=== PATIENT | male | born 1930 | race Two or more races ===

== ENCOUNTER 2016-12-18 12:47 | Inpatient (IN) | payer OTHER ==
[~2016-12-18] VITALS: Ht 157.5 cm; Wt 68.5 kg
[2016-12-18] VITALS (19 sets, daily range): BP systolic 111–145; BP diastolic 65–85
--- NOTE | 2016-12-18 12:47 | NUR ---
BBRA FROM HOME FOR SYNCOPAL EPISODE 20 MINS COIL TESTER. NO TRAUMA NOTED. NEURO INTACT. PT LETHARGIC AND WEAK ,BUT RESPONSIVE AND FOLLOWS COMMANDS. MOZAMBICAN SPEAKER. NAD NOTED. PT PLACED IN GOWN AND MONITOR. CONTINUE TO MONITOR. DR ANDRADE AT BEDSIDE FOR EVAL.
[2016-12-18] MEDS ORDERED: IV NS 0.9% 500 ML IV ONE (13:00)
[2016-12-18] MEDS ORDERED: IV NS 0.9% 500 ML BAG IV ONE (13:00)
[2016-12-18] MEDS ORDERED: IV SET PRIMARY PUMP SET 1 EA INFUS.SET MC ONE ×4 (13:00→16:33)
[2016-12-18 13:08] LABS: BASOPHILS % (AUTO) 0.1 % (0.0-2.0); EOSINOPHILS % (AUTO) 0.2 % (0.0-6.0); HEMATOCRIT 26 % (39-51); HEMOGLOBIN 8.8 g/dL (13.5-17.5); LYMPHOCYTES # (AUTO) 2.5 /CMM (0.8-4.8); LYMPHOCYTES % (AUTO) 15.4 % (20.0-44.0); MEAN CORPUSCULAR HEMOGLOBIN 32 PG (26.0-33.0); MEAN CORPUSCULAR HGB CONC 33 g/dl (31.0-36.0); MEAN CORPUSCULAR VOLUME 95 fL (80-96); MONOCYTES # (AUTO) 0.9 /CMM (0.1-1.30); MONOCYTES % (AUTO) 5.7 % (2.0-12.0); NEUTROPHILS # (AUTO) 12.7 /CMM (1.8-8.9); NEUTROPHILS % (AUTO) 78.6 % (43.0-81.0); PLATELET COUNT (AUTO) 371 /CMM (150-450); RDW COEFFICIENT OF VARIATION 12.9 (11.5-15.0); RED BLOOD CELL COUNT(AUTO) 2.78 MIL/uL (4.5-6.0); WHITE BLOOD COUNT (AUTO) 16.1 K/uL (4.3-11.0)
[2016-12-18 13:20] LABS: CALCIUM, SERUM 7.8 mg/dL (8.5-10.1); CARBON DIOXIDE 23 mmol/L (21-32); CHLORIDE 96 mmol/L (98-107); CREATININE 1.5 mg/dL (0.6-1.3); GLUCOSE 156 mg/dL (74-106); POTASSIUM 3.8 mmol/L (3.5-5.1); SODIUM SERUM 129 mmol/L (136-145); UREA NITROGEN, BLOOD 31 mg/dL (7-18)
[2016-12-18 13:26] LABS: ALANINE AMINOTRANSFERASE 19 U/L (12-78); ALBUMIN 2.5 g/dL (3.4-5.0); ALCOHOL, BLOOD < 3 mg/dL (0-0); ALKALINE PHOSPHATASE 67 U/L (46-116); ASPARTATE AMINOTRANSFERASE 22 U/L (15-37); BILIRUBIN,DIRECT 0.1 mg/dL (0.0-0.2); BILIRUBIN,TOTAL 0.4 mg/dL (0.2-1.0); TOTAL PROTEIN, SERUM 5.3 g/dL (6.4-8.2)
[2016-12-18 13:27] LABS: TROPONIN I < 0.017 ng/mL (0.00-0.056)
[2016-12-18 13:29] LABS: INR 1.01 (0.87-1.13); PROTHROMBIN TIME 10.5 SECS (9.5-12.7)
[2016-12-18 13:32] LABS: PARTIAL THROMBOPLASTIN TIME < 20 SEC (23-34)
[2016-12-18 13:34] LABS: SERUM AMMONIA 18 umol/L (11-32)
--- NOTE | 2016-12-18 13:35 | NUR ---
PT NOTED TO HAVE BLOODY STOOL. NOTED DARK, NON DRAINING. DR ANDRADE AWARE.
--- NOTE | 2016-12-18 13:42 | NUR ---
CALLED , HE IS IN SURGERY AND THEY WILL PAGE HIM TO CALL US BACK.
[2016-12-18 13:43] LABS: LACTIC ACID 3.3 mmol/L (0.4-2.0)
--- NOTE | 2016-12-18 13:43 | NUR ---
TENZIN PAGED, DR.SAM Church RN PRIMARY CARE
--- NOTE | 2016-12-18 13:54 | NUR ---
CALLED NURSING SUP. FOR ICU BED
[2016-12-18] MEDS ORDERED: PANTOPRAZOLE 40 MG VIAL ONE (13:56)
[2016-12-18] MEDS ORDERED: PANTOPRAZOLE 40 MG VIAL IV ONE (14:00)
--- NOTE | 2016-12-18 14:04 | NUR ---
NURSING SUP CALLED BACK WITH ICU BED. PT GOING TO ICU 263.
--- NOTE | 2016-12-18 14:22 | NUR ---
report given to abdulaziz leyva for sera
[2016-12-18] MEDS ORDERED: PANTOPRAZOLE 80 MG in IV NS 0.9% 500 ML IV ONE (14:30)
[2016-12-18] MEDS ORDERED: PANTOPRAZOLE 80 MG in IV NS 0.9% 100 ML IV ONE (14:30)
[2016-12-18] MEDS ORDERED: HYDR-548 PO (14:36)
[2016-12-18] MEDS ORDERED: ALLO100T PO (14:36)
[2016-12-18] MEDS ORDERED: ENAL20TA PO (14:36)
[2016-12-18] MEDS ORDERED: IV NS 0.9% 250 ML IV ONE (15:17)
[2016-12-18] MEDS ORDERED: BLOOD IV SET 1 EA INFUS.SET MC ONE ×2 (15:18→20:30)
[2016-12-18] MEDS ORDERED: ONDANSETRON HCL/PF 4 MG/2 ML VIAL IVP PRN (15:30)
[2016-12-18] MEDS ORDERED: MORPHINE SULFATE INJ 2 MG/ML DISP.SYRIN IV PRN (15:30)
--- NOTE | 2016-12-18 15:40 | NUR ---
BLOOD TRANSFUSION STARTED, PT'S DAUGHTER SIGNED CONSENT. WITNESSED WITH ALEXIS DE ANDA.
--- NOTE | 2016-12-18 16:00 | NUR ---
MATERIAL HAULER; ADMIT RECEIVED PT FROM ER VIA GURNEY.PT IS AWAKE AND ORIENTED X3. PT DENIES ANY PAIN AT THIS TIME. PT ADMITTED FOR SYNCOPE EPISODE WITH GIB. PT RECEIVING FIRST PRBC. ORDER FOR 2 UNITS OF PRBC TRANSFUSION. NO ACUTE DISTRESS NOTED WILL CONTINUE TO MONITOR CLOSELY.
[2016-12-18] MEDS: IV NS 0.9% 1,000 ML IV PRN (16:38)
--- NOTE | 2016-12-18 17:38 | NUR ---
VIBRATORY PILE DRIVER;BLOOD TRANSFUSION FIRST PRBC FINISHED. NO S/S OF BLOOD REACTION. PRBC STARTED IN ER.
--- NOTE | 2016-12-18 22:33 | NUR ---
HEALTH SCIENCES DEAN - REC'D REPORT FROM LEODAN DE ANDA, REC'D PT. AT END OF 2ND TX OF PRBC'S. STARTED FFP TX AT 20:35. FAMILY AT BS. PT.IS A CHINESE SPEAKING, INDEPENDENT MALE. PT.JUST HAD A BM OF 50CC MAROON MELENA/DEFINITELY BLOOD. NPO. PT. HAS O2/2L/NC ON. O2 SATS 100%. LUNG JAIN ARE CLEAR TO AUSC. VSS/SR. AFEBRILE. ALL PULSES PALPABLE X 4 EXT. NO EDEMA. CONT.POC.
[2016-12-18 23:42] LABS: BASOPHILS % (AUTO) 0.2 % (0.0-2.0); HEMATOCRIT 30 % (39-51); LYMPHOCYTES # (AUTO) 1.3 /CMM (0.8-4.8); LYMPHOCYTES % (AUTO) 8.4 % (20.0-44.0); MEAN CORPUSCULAR HEMOGLOBIN 31 PG (26.0-33.0); MEAN CORPUSCULAR HGB CONC 34 g/dl (31.0-36.0); MEAN CORPUSCULAR VOLUME 93 fL (80-96); MONOCYTES % (AUTO) 6.7 % (2.0-12.0); NEUTROPHILS # (AUTO) 12.7 /CMM (1.8-8.9); NEUTROPHILS % (AUTO) 84.7 % (43.0-81.0); PLATELET COUNT (AUTO) 313 /CMM (150-450); RDW COEFFICIENT OF VARIATION 13.8 (11.5-15.0)
[2016-12-19] VITALS (46 sets, daily range): BP systolic 136–184; BP diastolic 33–113
[2016-12-19] MEDS ORDERED: PANTOPRAZOLE 40 MG VIAL ONE (00:10)
[2016-12-19] MEDS ORDERED: IV NS 0.9% 500 ML IV ONE (00:10)
[2016-12-19] MEDS ORDERED: IV SET PRIMARY PUMP SET 1 EA INFUS.SET MC ONE (00:11)
[2016-12-19] MEDS: PANTOPRAZOLE 80 MG in IV NS 0.9% 500 ML IV PRN ×3 (00:22→22:06)
--- NOTE | 2016-12-19 00:33 | NUR ---
MORTICIAN HELPER - PT.HAD TO BOUTS OF MELENA/BLOODY URINE/STOOL MIXED IN BSC. FFP TX'D IN. A CBC WAS DRAWN & RESULTED. DR. ANTONY IN UNIT. WAS MADE AWARE OF PT'S CURRENT STATUS. ORDERS REC'D. PT.WAS STARTED ON PROTONIX GTT. ANOTHER CBC/DIFF WILL BE DRAWN AT 2 AM. PT'S FAMILY WAS AT BS & WENT HOME FOR THE NIGHT. CONT. POC.
[2016-12-19 02:25] LABS: HEMOGLOBIN 10.2 g/dL (13.5-17.5)
[2016-12-19 05:14] LABS: BASOPHILS % (AUTO) 0.1 % (0.0-2.0); HEMATOCRIT 29 % (39-51); HEMOGLOBIN 9.7 g/dL (13.5-17.5); LYMPHOCYTES # (AUTO) 1.4 /CMM (0.8-4.8); LYMPHOCYTES % (AUTO) 10.5 % (20.0-44.0); MEAN CORPUSCULAR HEMOGLOBIN 32 PG (26.0-33.0); MEAN CORPUSCULAR HGB CONC 34 g/dl (31.0-36.0); MEAN CORPUSCULAR VOLUME 94 fL (80-96); MONOCYTES # (AUTO) 0.8 /CMM (0.1-1.30); MONOCYTES % (AUTO) 6.1 % (2.0-12.0); NEUTROPHILS # (AUTO) 11.1 /CMM (1.8-8.9); NEUTROPHILS % (AUTO) 83.3 % (43.0-81.0); PLATELET COUNT (AUTO) 298 /CMM (150-450); RDW COEFFICIENT OF VARIATION 14.3 (11.5-15.0); WHITE BLOOD COUNT (AUTO) 13.3 K/uL (4.3-11.0)
[2016-12-19 05:19] LABS: CALCIUM, SERUM 7.8 mg/dL (8.5-10.1); CREATININE 1.4 mg/dL (0.6-1.3); MAGNESIUM 1.3 mg/dL (1.8-2.4); PHOSPHORUS 2.9 mg/dL (2.5-4.9); POTASSIUM 4.5 mmol/L (3.5-5.1)
[2016-12-19] MEDS: IV NS 0.9% 1,000 ML IV PRN ×2 (05:34→22:06)
[2016-12-19 05:38] LABS: THYROID STIMULATING HORMONE 0.975 uIU/mL (0.358-3.74)
--- NOTE | 2016-12-19 07:01 | NUR ---
PLUG STITCHER - PT.HAD A TOTAL OF 7 MELENA STOOLS/W/URINE IN BSC. LAST (8TH) TRIP TO BS, WAS NO BLOOD/ONLY YELLOW URINE. CBC AT 2 AM WAS 10.2. AM LABS DRAWN-AWAITING RESULTS. NO CHANGES FROM LAST ASSESSMENT. CONT. POC. PROTONIX GTT CONT. AT 8MG/HR. 0.9%NS GTT. CONT. AT 75CC/HR. REPORT TO BE ENDORSED TO YAMILETH DE ANDA.
--- NOTE | 2016-12-19 08:00 | NUR ---
ICU/RN INITIAL NOTES,AM RECEIVED REPORT FROM NIGHT NURSE FOR CONTINUATION OF CARE. PT ALERT, AWAKE, FOLLOWS COMMANDS. TOGOLESE SPEAKING ONLY. FAMILY AT BEDSIDE FOR TRANSLATION. PT ON CONTINUOUS PROTONIX DRIP, IV FLUIDS INFUSING ORDERED FOR HYDRATION. PT ON 2LITERS O2 VIA NASAL CANULA NO ACUTE DISTRESS NOTED. PT WAS HAVING GI BLEED. GI CONSULT PENDING. POSSIBLE COLONOSCOPY. PT ABLE TO GO TO BEDSIDE COMMODE WITH ASSIST, URINAL AT BEDSIDE. ALL NEEDS MET, SAFETY MEASURES TAKEN, BED IN LOW POSITION, SIDE RAILS UP, CALL LIGHT WITHIN REACH. WILL CONTINUE CARE
[2016-12-19] MEDS ORDERED: PANTOPRAZOLE 40 MG VIAL IV SCH (09:00)
--- NOTE | 2016-12-19 09:30 | NUR ---
ICU/RN: PT SEEN AND ASSESSED BY . SCHEDULED FOR COLONOSCOPY. WILL START ADMINISTERING GOLYTELY PRESCRIBED. AWAITING FOR FAMILY FOR CONSENT.
[2016-12-19] MEDS ORDERED: PEG 3350/NA SULF,BICARB,CL/KCL 4,000 ML BOTTLE PO ONE (10:00)
[2016-12-19 12:07] LABS: FREE PSA 0.6 ng/mL (0.00-45); PROSTATE SPECIFIC ANTIGEN SCR 1.37 ng/mL (0.00-4.00); THYROID STIMULATING HORMONE 0.979 uIU/mL (0.358-3.74); URIC ACID 6.3 mg/dL (2.6-7.2)
[2016-12-19] MEDS: Magnesium 1GM/D5W 100ML PREMIX 100 ML IV SCH ×4 (12:21→16:36)
--- NOTE | 2016-12-19 16:00 | NUR ---
ICU/RN: CALLED TO NOTIFY THAT MARITA COMPLETED. TLO ORDERS RECEIVED FOR MAX 3 TAP WATER ENEMAS OVERNIGHT TILL CLEAR. COLONOSCOPY SCHEDULED FOR AM. CONSENT OBTAINED AND IN CHART.
[2016-12-19 18:36] LABS: APPEARANCE,URINE CLEAR (CLEAR); BILIRUBIN,URINE NEGATIVE (NEGATIVE); BLOOD, URINE TRACE-INTA Ery/uL (NEGATIVE); COLOR,URINE YELLOW (YELLOW); KETONES,URINE NEGATIVE (NEGATIVE); LEUKOCYTE ESTERASE ,URINE NEGATIVE (NEGATIVE); NITRITE, URINE NEGATIVE (NEGATIVE); PROTEIN,URINE TRACE mg/dl (NEGATIVE); UGLUCOSE NEGATIVE (NEGATIVE); UROBILINOGEN,URINE 0.2 EU/dL (0.2)
[2016-12-19 18:58] LABS: ADD URINE CULTURE NO; BACTERIA,URINE None seen /HPF (None Seen); RBC,URINE 2-3/HPF /HPF (0-2); SQUAMOUS EPITHELIAL CELL,UR Rare /HPF (None Seen); WBC,URINE 0-2 /HPF (0-3)
[2016-12-19 18:59] LABS: MUCUS,URINE Few /LPF (None Seen)
--- NOTE | 2016-12-19 19:26 | NUR ---
ICU/RN ENDING NOTES,AM REPORT ENDORSED TO NIGHT NURSE FOR CONTINUATION OF CARE. ALL NEEDS MET. SAFETY MEASURE TAKEN, BED IN LOW POSITION, SIDE RAILS UP. PT WILL HAVE COLONOSCOPY IN AM. NPO POST MIDNIGHT. CONTINUOUS IV PROTONIX AND IV FLUIDS ORDERED. PT CLEANED AND LINENS CHANGED. PT ABLE TO MOVE SELF IN BED. DVT PUMPS ON
--- NOTE | 2016-12-19 20:00 | NUR ---
ANALYSIS INTERNSHIP NOTES RECEIVED PT IN BED, A/O X3. SAMI SPEAKING ONLY. FAMILY AT BEDSIDE. TELE READS SR AT 86 BPM. ON O2 VIA NC AT 2 LPM, JAZMINE WELL. NO S/S OF ACUTE DISTRESS. PT ABLE TO USE URINAL AND BEDSIDE COMODE WITH ASSIST. RIGHT WRIST 20G AND LEFT AC 20G IVs, RUNNING PROTONIX AND NORMAL SALINE AT 75 ML/HR. CALL LIGHT WITHIN EASY REACH, SIDE RAILS X2, HOB ELEVATED, BED LOW AND LOCKED.
[2016-12-19 23:33] LABS: BASOPHILS % (AUTO) 0.1 % (0.0-2.0); EOSINOPHILS % (AUTO) 0.4 % (0.0-6.0); HEMATOCRIT 27 % (39-51); HEMOGLOBIN 8.9 g/dL (13.5-17.5); LYMPHOCYTES # (AUTO) 1.3 /CMM (0.8-4.8); LYMPHOCYTES % (AUTO) 11.2 % (20.0-44.0); MEAN CORPUSCULAR HEMOGLOBIN 31 PG (26.0-33.0); MEAN CORPUSCULAR HGB CONC 34 g/dl (31.0-36.0); MEAN CORPUSCULAR VOLUME 93 fL (80-96); MONOCYTES # (AUTO) 0.6 /CMM (0.1-1.30); MONOCYTES % (AUTO) 5.1 % (2.0-12.0); NEUTROPHILS # (AUTO) 9.9 /CMM (1.8-8.9); NEUTROPHILS % (AUTO) 83.2 % (43.0-81.0); PLATELET COUNT (AUTO) 300 /CMM (150-450); RDW COEFFICIENT OF VARIATION 14.4 (11.5-15.0); RED BLOOD CELL COUNT(AUTO) 2.86 MIL/uL (4.5-6.0); WHITE BLOOD COUNT (AUTO) 11.8 K/uL (4.3-11.0)
[2016-12-20] VITALS (22 sets, daily range): BP systolic 120–174; BP diastolic 37–91
--- NOTE | 2016-12-20 04:30 | NUR ---
COURT COLLECTIONS OFFICER NOTES PT RECEIVED TAP WATER ENEMA IN PREPARATION FOR COLONOSCOPY. BOWEL MOVEMENT IS SEMI CLEAR AT THIS TIME.
[2016-12-20 05:01] LABS: CALCIUM, SERUM 8.3 mg/dL (8.5-10.1); CREATININE 1.3 mg/dL (0.6-1.3); MAGNESIUM 2.3 mg/dL (1.8-2.4); POTASSIUM 3.9 mmol/L (3.5-5.1)
--- NOTE | 2016-12-20 05:20 | NUR ---
CLIENT ACCOUNT MANAGER NOTES PT RECEIVED SECOND TAP WATER ENEMA. BM IS CLEAR BUT CONTINUES TO HAVE A RED BROWN COLOR. WILL ENDORSE TO AM NURSE TO PERFORM ONE MORE ENEMA PRIOR TO PROCEDURE.
[2016-12-20 06:54] LABS: BASOPHILS % (AUTO) 0.2 % (0.0-2.0); EOSINOPHILS # (AUTO) 0.1 /CMM (0.0-0.7); EOSINOPHILS % (AUTO) 0.9 % (0.0-6.0); HEMATOCRIT 30 % (39-51); HEMOGLOBIN 10.1 g/dL (13.5-17.5); LYMPHOCYTES # (AUTO) 2.1 /CMM (0.8-4.8); LYMPHOCYTES % (AUTO) 16.5 % (20.0-44.0); MEAN CORPUSCULAR HEMOGLOBIN 32 PG (26.0-33.0); MEAN CORPUSCULAR HGB CONC 34 g/dl (31.0-36.0); MEAN CORPUSCULAR VOLUME 94 fL (80-96); MONOCYTES # (AUTO) 0.5 /CMM (0.1-1.30); MONOCYTES % (AUTO) 4.4 % (2.0-12.0); NEUTROPHILS # (AUTO) 9.8 /CMM (1.8-8.9); PLATELET COUNT (AUTO) 328 /CMM (150-450); RDW COEFFICIENT OF VARIATION 13.9 (11.5-15.0); WHITE BLOOD COUNT (AUTO) 12.5 K/uL (4.3-11.0)
--- NOTE | 2016-12-20 07:38 | NUR ---
INITIAL DRIVER SERVICE TECHNICIAN NOTE RCVD PT AWAKE AND ALERT SHOWING NO S/O DISTRESS. SR ON TELE. TOLERATING O2 VIA NC. VOIDING TO URINAL. ABLE TO TRANSFER WITH ASSISTANCE TO BSC. RIGHT WRIST #20 AND LEFT AC #20 C/D/I/PATENT. NO S/O INFILTRATION OR PHLEBITIS IVF INFUSING. WILL CONTINUE TO MONITOR PT FOR SAFETY AND COMFORT. CALL LIGHT WITHIN REACH. BED IN LOW AND LOCKED POSITION. PT PREPPED FOR COLONOSCOPY STOOL CLEAR POST 2 ENEMA'S. CONSENT'S SIGN AND IN CHART.
[2016-12-20] MEDS: PANTOPRAZOLE 80 MG in IV NS 0.9% 500 ML IV PRN (07:42)
[2016-12-20 08:08] LABS: VIT D, 25-HYDROXY 20.2 ng/mL (30.0-100.0)
--- NOTE | 2016-12-20 08:54 | NUR ---
SHIFT SUPERINTENDENT NOTE OR TEAM HERE TO PICK PT UP FOR COLONOSCOPY. VITAL SIGNS STABLE. PT TRANSPORTED VIA BED TO OR.
--- NOTE | 2016-12-20 10:01 | NUR ---
CHIEF OPERATING ENGINEER NOTE RCVD PT BACK FROM OR, REPORT TAKEN AT BEDSIDE. ORDERS IN CHART ACKNOWLEDGED AND ENTERED IN THE SYSTEM. WILL CONTINUE TO MONITOR PT.
--- NOTE | 2016-12-20 10:48 | NUR ---
WOUND CARE CONSULT: PATIENT SEEN AND SKIN ASSESSMENT DONE. PATIENT ALERT, INDEPENDENT WITH BED MOBILITY, CONTINENT, STEPHANE 14. PATIENT SEEN AND SKIN ASSESSMENT DONE. PATIENT ALERT, ORIENTED, CONTINENT, INDEPENDENT WITH BED MOBILITY, STEPHANE 16. NO OPEN OR PRESSURE WOUND NOTED. RECOMMEND SKIN CARE, ASSIST PATIENT WITH GREGORIO CARE, MOISTURE PROTECTION WITH Z GUARD PRN ORDERED. MD IN AGREEMENT WITH PLAN OF CARE.
[2016-12-20] MEDS ORDERED: Z GUARD REMEDY 2 OZ OINT TP PRN (11:00)
[2016-12-20] MEDS: IV NS 0.9% 1,000 ML IV PRN (11:09)
[2016-12-20 12:14] LABS: CARCINOEMBRYONIC AG (CEA) 2.2 ng/mL (0.0-4.7)
--- NOTE | 2016-12-20 12:36 | NUR ---
SALES STOCK ASSOCIATE NOTE PT TRANSFERRED TO ROOM 313-1 VITAL SIGNS STABLE.PT ALERT AND AWAKE SHOWING NO S/O DISTRESS. PT'S FAMILY AT BEDSIDE. PT TRANSFERRED VIA WHEELCHAIR BY RN. REPORT CALLED IN AND TAKEN BY ADILSON MILLER.
--- NOTE | 2016-12-20 12:50 | NUR ---
RN MS NOTES RECEIVED PATIENT FROM ICU VIA WHEELCHAIR ACCOMPANIED BY RACHELLE RN, ALERT AND ORIENTED, SAUDI ARABIAN SPEAKING ONLY, FAMILY AT BEDSIDE FOR SUPPORT, PATIENT DENIES PAIN OR DISCOMFORT AT THIS TIME, EATING LUNCH AND TOLERATING WELL, BREATHING EVEN AND UNLABORED, NO SOB, ABDOMEN SOFT AND NON-DISTENDED, SAFETY MEASURES IN PLACED, CALL LIGHT WITHIN REACH, WILL CONTINUE TO MONITOR.
--- NOTE | 2016-12-20 16:50 | NUR ---
ADILSON MS NOTES CLARIFIED WITH DR. FIELDS RE: ORDER FOR PROTONIX, PER MD, DISCONTINUE PROTONIX DRIP, ORDER CARRIED OUT.
[2016-12-20] MEDS ORDERED: IV SET PRIMARY PUMP SET 1 EA INFUS.SET MC ONE (17:10)
--- NOTE | 2016-12-20 18:33 | NUR ---
RN MS NOTES PATIENT IN BED, ALERT AND ORIENTED, SOUTH SUDANESE SPEAKING, NO S/SX OF ANY DISTRESS, GRANDDAUGHTER AT BEDSIDE FOR ASSISTANCE, PATIENT USES A URINAL AND BEDSIDE COMMODE, RECEIVED ASSISTANCE WITH ADLS, PIV 20G ON RIGHT WRIST INFILTRATED, REMOVED AND RE-INSERTED 22G ON RIGHT WRIST, PATENT AND NS INFUSING AT 75ML/HR, BP ELEVATED 158/81 PULSE 85, MD AWARE, SAFETY MEASURES IN PLACED, CALL LIGHT WITHIN REACH, WILL ENDORSE TO MINI BAR ATTENDANT.
--- NOTE | 2016-12-20 19:30 | NUR ---
MS/RN RECEIVE PATIENT AWAKE, ALERT, COMFORTABLE, NO SIGNS OF DISTRESS NOTED. CALL LIGHT IN REACH. NO NEEDS AT THIS TIME.
--- NOTE | 2016-12-21 | NUR ---
MS/RN PATIENT IS SLEEPING, AROUSABLE, APPEAR COMFORTABLE, NO SIGNS OF DISTRESS NOTED, CALL LIGHT IN REACH. WILL CONTINUE TO MONITOR.
--- NOTE | 2016-12-21 06:15 | NUR ---
MS/RN PATIENT IS AWAKE, COMFORTABLE, ALL NEEDS ATTENDED AT THIS TIME. WILL CONTINUE TO MONITOR.
[2016-12-21 06:59] LABS: BASOPHILS % (AUTO) 0.4 % (0.0-2.0); CALCIUM, SERUM 8.1 mg/dL (8.5-10.1); CREATININE 1.3 mg/dL (0.6-1.3); EOSINOPHILS # (AUTO) 0.1 /CMM (0.0-0.7); EOSINOPHILS % (AUTO) 1.3 % (0.0-6.0); HEMATOCRIT 29 % (39-51); HEMOGLOBIN 9.7 g/dL (13.5-17.5); LYMPHOCYTES % (AUTO) 17.9 % (20.0-44.0); MEAN CORPUSCULAR HEMOGLOBIN 32 PG (26.0-33.0); MEAN CORPUSCULAR HGB CONC 34 g/dl (31.0-36.0); MEAN CORPUSCULAR VOLUME 93 fL (80-96); MONOCYTES # (AUTO) 0.5 /CMM (0.1-1.30); MONOCYTES % (AUTO) 4.6 % (2.0-12.0); NEUTROPHILS # (AUTO) 8.4 /CMM (1.8-8.9); NEUTROPHILS % (AUTO) 75.8 % (43.0-81.0); PLATELET COUNT (AUTO) 318 /CMM (150-450); POTASSIUM 3.9 mmol/L (3.5-5.1); RDW COEFFICIENT OF VARIATION 14.2 (11.5-15.0); RED BLOOD CELL COUNT(AUTO) 3.06 MIL/uL (4.5-6.0); WHITE BLOOD COUNT (AUTO) 11.1 K/uL (4.3-11.0)
[2016-12-21] MEDS: IV NS 0.9% 1,000 ML IV PRN (07:15)
[2016-12-21] MEDS ORDERED: PANTOPRAZOLE 40 MG TABLET.DR PO SCH (07:30)
[2016-12-21 08:00] VITALS: BP_SYST 155; BP_SYST 177; BP_DIAS 59; BP_DIAS 85
--- NOTE | 2016-12-21 08:00 | NUR ---
MS RN NOTE PT. AWAKE, ALERT AND ORIENTED X3. DENIED PAIN AND SOB. NO BM IN THIS MORNING. NS@75ML/HR IVF. SIDE RAILS UP. CALL LIGHT WITHIN REACH. MONITOR CLOSELY.
[2016-12-21 10:50] LABS: LYMPHOCYTES % (MANUAL) 19 % (16-48); MONOCYTES % (MANUAL) 9 % (0-11.0); NEUTROPHILS % (MANUAL) 72 (42-76); PLATELET ESTIMATE ADEQUATE
[2016-12-21] MEDS ORDERED: PANT40TA2 PO (12:13)
[2016-12-21 16:00] VITALS: BP 168/84
--- NOTE | 2016-12-21 18:00 | NUR ---
PT. AWAKE, ALERT AND ORIENTED X3. DENIED PAIN AND SOB. NO BM DURING THE DAYTIME. AMBULATED IN HALLWAY WITH ASSIST. GIVEN DISCHARGE INSTRUCTION TO THE PT'S DAUGHTER. UNDERSTOOD WELL. REMOVED HL. DISCHARGED FROM [facility] WITH FAMILY.
== END 2016-12-21 18:14 | disposition home or self-care (01) | DRG 246 ==
LOC: ER 12:49 → ICU 14:25 → MED 12-20 12:41
PROC: 30233N1 Transfusion of Nonautologous Red Blood Cells into Peripheral Vein, Percutaneous Approach (ICD-10-PCS; principal; 2016-12-18)
PROC: 30233K1 Transfusion of Nonautologous Frozen Plasma into Peripheral Vein, Percutaneous Approach (ICD-10-PCS; principal; 2016-12-18)
PROC: 0DBE8ZX Excision of Large Intestine, Via Natural or Artificial Opening Endoscopic, Diagnostic (ICD-10-PCS; 2016-12-20)
DX: K55.9 Vascular disorder of intestine, unspecified (principal); N17.0 Acute kidney failure with tubular necrosis; E87.2 Acidosis; D62 Acute posthemorrhagic anemia; E87.1 Hypo-osmolality and hyponatremia; E86.9 Volume depletion, unspecified; I11.9 Hypertensive heart disease without heart failure; M54.9 Dorsalgia, unspecified; K92.2 Gastrointestinal hemorrhage, unspecified
CPT/HCPCS: 36415; 70450-TC; 71010-TC; 80048-TC; 80061-TC; 80076-TC; 81000-TC; 82140-TC; 82306; 82378; 82728-TC; 82746; 83540-TC; 83605-TC; 83615-TC; 83735-TC; 84100-TC; 84153-TC; 84154-TC; 84443-TC; 84484-TC; 84550-TC; 85025-TC; 85027-TC; 85045-TC; 85730-TC; 86850-TC; 86921-TC; 87040-TC; 87081-TC; 88305-TC; 93307-TC; 97001-TC; A4217; A4606; C9113; G0480; J2704; J3475; J7030; J7040; J7050; P9016-BL; P9017-BL; Z7610

== ENCOUNTER 2017-01-21 09:50 | Emergency (ER) | payer OTHER ==
[~2017-01-21] VITALS: Ht 160 cm; Wt 77.1 kg
[~2017-01-21 09:50] MED LIST: ALLO100T PO; ENAL20TA PO; HYDR-548 PO; PANT40TA2 PO
--- NOTE | 2017-01-21 10:10 | NUR ---
PT BB DAUGHTER: BACK PAIN X 3 DAYS; R SIDE FACE SWELLING X 2 DAYS. VSS. SEEN BY MD FOR EVAL. SAFETY AND COMFORT MEASURES PROVIDED. WILL MONITOR.
--- NOTE | 2017-01-21 10:20 | NUR ---
IV ACCESS STARTED. BLOOD DRAWN FOR LABS. PT MEDICATED ORDERED.
[2017-01-21] MEDS ORDERED: ACETAMINOPHEN ES 500 MG TABLET PO ONE (10:30)
[2017-01-21] MEDS ORDERED: ACETAMINOPHEN ES 500 MG TABLET ONE (10:42)
[2017-01-21 10:47] LABS: BASOPHILS # (AUTO) 0.1 /CMM (0.0-0.2); BASOPHILS % (AUTO) 0.4 % (0.0-2.0); EOSINOPHILS # (AUTO) 0.1 /CMM (0.0-0.7); EOSINOPHILS % (AUTO) 0.5 % (0.0-6.0); HEMATOCRIT 35 % (39-51); LYMPHOCYTES # (AUTO) 1.8 /CMM (0.8-4.8); LYMPHOCYTES % (AUTO) 14.2 % (20.0-44.0); MEAN CORPUSCULAR HEMOGLOBIN 32 PG (26.0-33.0); MEAN CORPUSCULAR HGB CONC 34 g/dl (31.0-36.0); MEAN CORPUSCULAR VOLUME 92 fL (80-96); MONOCYTES # (AUTO) 0.9 /CMM (0.1-1.30); MONOCYTES % (AUTO) 7.2 % (2.0-12.0); NEUTROPHILS # (AUTO) 9.8 /CMM (1.8-8.9); NEUTROPHILS % (AUTO) 77.7 % (43.0-81.0); PLATELET COUNT (AUTO) 257 /CMM (150-450); RDW COEFFICIENT OF VARIATION 13.5 (11.5-15.0); RED BLOOD CELL COUNT(AUTO) 3.79 MIL/uL (4.5-6.0); WHITE BLOOD COUNT (AUTO) 12.7 K/uL (4.3-11.0)
[2017-01-21 10:57] LABS: CALCIUM, SERUM 8.5 mg/dL (8.5-10.1); CREATININE 1.6 mg/dL (0.6-1.3); POTASSIUM 4.8 mmol/L (3.5-5.1)
[2017-01-21 11:02] LABS: BILIRUBIN,DIRECT 0.2 mg/dL (0.0-0.2); TOTAL PROTEIN, SERUM 6.6 g/dL (6.4-8.2)
[2017-01-21 11:07] LABS: INR 0.91 (0.87-1.13); PROTHROMBIN TIME 9.5 SECS (9.5-12.7)
--- NOTE | 2017-01-21 11:34 | NUR ---
IV removed. Catheter intact and site benign. Pressure and 4x4 applied to site. No bleeding noted.Patient discharged to home in stable condition. Written and verbal after care instructions given. Patient verbalizes understanding of instruction.
[2017-01-21 11:35] VITALS: BP 132/61
== END 2017-01-21 11:41 | disposition home or self-care (01) ==
LOC: ER 09:51
DX: L03.211 Cellulitis of face (principal); I10 Essential (primary) hypertension
CPT/HCPCS: 36415; 71010; 72110; 74176; 80048; 80076; 83690; 85025; 85730; 99285; A4606; Z7610

== ENCOUNTER 2017-01-24 00:47 | Inpatient (IN) | payer OTHER ==
[~2017-01-24] VITALS: Ht 154.9 cm; Wt 74.4 kg
--- NOTE | 2017-01-24 01:18 | NUR ---
Dr. Bundy at bedside for eval.
--- NOTE | 2017-01-24 01:30 | NUR ---
IVHL started, labs drawn & sent. Urinal provided. Instruct pt to provide urine sample fabian.
[2017-01-24 01:37] LABS: BASOPHILS % (AUTO) 0.4 % (0.0-2.0); HEMATOCRIT 32 % (39-51); HEMOGLOBIN 10.7 g/dL (13.5-17.5); LYMPHOCYTES # (AUTO) 0.8 /CMM (0.8-4.8); LYMPHOCYTES % (AUTO) 8.4 % (20.0-44.0); MEAN CORPUSCULAR HEMOGLOBIN 31 PG (26.0-33.0); MEAN CORPUSCULAR HGB CONC 34 g/dl (31.0-36.0); MEAN CORPUSCULAR VOLUME 92 fL (80-96); MONOCYTES # (AUTO) 0.3 /CMM (0.1-1.30); MONOCYTES % (AUTO) 2.9 % (2.0-12.0); NEUTROPHILS # (AUTO) 8.9 /CMM (1.8-8.9); NEUTROPHILS % (AUTO) 88.3 % (43.0-81.0); PLATELET COUNT (AUTO) 279 /CMM (150-450); RDW COEFFICIENT OF VARIATION 14.1 (11.5-15.0); RED BLOOD CELL COUNT(AUTO) 3.45 MIL/uL (4.5-6.0); WHITE BLOOD COUNT (AUTO) 10.1 K/uL (4.3-11.0)
--- NOTE | 2017-01-24 01:48 | NUR ---
pt sent to CT via [facility].
[2017-01-24 01:52] LABS: ALBUMIN 2.9 g/dL (3.4-5.0); BILIRUBIN,DIRECT 0.2 mg/dL (0.0-0.2); BILIRUBIN,TOTAL 0.7 mg/dL (0.2-1.0); CALCIUM, SERUM 8.5 mg/dL (8.5-10.1); CREATININE 1.3 mg/dL (0.6-1.3); POTASSIUM 4.6 mmol/L (3.5-5.1); TOTAL PROTEIN, SERUM 6.8 g/dL (6.4-8.2)
--- NOTE | 2017-01-24 01:57 | NUR ---
pt back fr CT.
[2017-01-24 02:07] LABS: INR 0.9 (0.87-1.13); PROTHROMBIN TIME 9.6 SECS (9.5-12.7)
--- NOTE | 2017-01-24 02:17 | NUR ---
Urinal provided. Urine obtained & sent to lab.
[2017-01-24 02:29] LABS: APPEARANCE,URINE CLEAR (CLEAR); BILIRUBIN,URINE NEGATIVE (NEGATIVE); BLOOD, URINE NEGATIVE Ery/uL (NEGATIVE); COLOR,URINE YELLOW (YELLOW); KETONES,URINE NEGATIVE (NEGATIVE); LEUKOCYTE ESTERASE ,URINE NEGATIVE (NEGATIVE); NITRITE, URINE NEGATIVE (NEGATIVE); PROTEIN,URINE 1+ mg/dl (NEGATIVE); UGLUCOSE NEGATIVE (NEGATIVE); UROBILINOGEN,URINE 0.2 EU/dL (0.2)
[2017-01-24] MEDS ORDERED: IV NS 0.9% 500 ML IV ONE ×2 (02:31→04:17)
[2017-01-24] MEDS ORDERED: IV SET PRIMARY 1 EA INFUS.SET MC ONE ×2 (02:31→04:17)
--- NOTE | 2017-01-24 02:38 | NUR ---
Dr. Bundy at bedside for update on pt status.
[2017-01-24 02:50] LABS: ADD URINE CULTURE NO; BACTERIA,URINE None seen /HPF (None Seen); MUCUS,URINE Rare /LPF (None Seen); RBC,URINE 0-2 /HPF (0-2); SQUAMOUS EPITHELIAL CELL,UR Rare /HPF (None Seen); WBC,URINE NONE SEEN /HPF (0-3)
[2017-01-24] MEDS ORDERED: IV NS 0.9% 1,000 ML BAG IV ONE ×2 (03:00→05:00)
--- NOTE | 2017-01-24 03:37 | NUR ---
Report given to ADILSON Cowart for pt admission to [facility] 327-1.
--- NOTE | 2017-01-24 03:41 | NUR ---
pt ambulatory w/ cane to restroom, resp even & unlabored, nad noted.
--- NOTE | 2017-01-24 04:15 | NUR ---
Per pt daughter, verified home meds, states pt does not take protonix at home. Dr. Bundy notified.
[2017-01-24] MEDS ORDERED: PANTOPRAZOLE 40 MG VIAL ONE (04:17)
--- NOTE | 2017-01-24 04:46 | NUR ---
pt transferred via gurney to the [facility] rm 327-1 following ALS protocol.
[2017-01-24 05:00] VITALS: BP 163/78
[2017-01-24] MEDS ORDERED: Z GUARD REMEDY 2 OZ OINT TP PRN (05:00)
[2017-01-24] MEDS ORDERED: ONDANSETRON HCL/PF 4 MG/2 ML VIAL IVP PRN (05:00)
[2017-01-24] MEDS ORDERED: PANTOPRAZOLE 40 MG VIAL IV SCH (05:00)
[2017-01-24] MEDS ORDERED: HYDROCODONE/APAP 10/325MG 1 EA TABLET PO PRN (05:00)
[2017-01-24] MEDS ORDERED: MAG HYDROX/AL HYDROX/SIMETH 30 ML UDC PO PRN (05:00)
[2017-01-24] MEDS ORDERED: HYDROCODONE/APAP 5/325MG 1 EACH TABLET PO PRN (05:00)
[2017-01-24] MEDS ORDERED: MAGNESIUM HYDROXIDE 30 ML UDC PO PRN (05:00)
[2017-01-24] MEDS ORDERED: IV NS 0.9% 1,000 ML ONE (06:42)
[2017-01-24] MEDS ORDERED: IV SET PRIMARY PUMP SET 1 EA INFUS.SET MC ONE (06:42)
[2017-01-24] MEDS: IV NS 0.9% 1,000 ML IV PRN (06:48)
[2017-01-24 06:50] LABS: CALCIUM, SERUM 8.4 mg/dL (8.5-10.1); CREATININE 1.3 mg/dL (0.6-1.3); POTASSIUM 4.5 mmol/L (3.5-5.1)
--- NOTE | 2017-01-24 06:54 | NUR ---
ACCESS SPEC CLOSING NOTES RECEIVED PATIENT VIA [facility] PROTOCOL AT 0450 AM HEAD TO TOE ASSESSMENT IS DONE, ON TELE SR 85'S NOW PATIENT IS COMFORTABLY ASLEEP AND EASILY AWAKEN, HEAD OF BED ELEVATED FOR BETTER LUNG EXPANSION 02 SAT SP02 95% R.A IV HYDRATION 75 CC NS ONGOING TOLERATED WELL. VS STABLE, PATIENT NO S/S OF PAIN SKIN WARM AND DRY TO TOUCH, AFEBRILE, ALL NURSING CARE NEEDS PROVIDED AND RENDERED, NEEDS ATTENDED AND ANTICIPATED, KEPT CLEAN AND DRY AND COMFORTABLE, BLADDER NOT DISTENDED, GOOD SKIN CARE PROVIDED. ALL DUE MEDS WAS GIVEN TOLERATED. FREQUENT VISUAL CHECK DONE FOR SAFETY EVERY 2 HOURS. ASSISTED REPOSITIONED EVERY 2 HOURS FOR COMFORT AND SKIN MGT. EXTREMITIES OFFLOAD AT ALL TIMES. SAFE HAZARD FREE ENVIRONMENT PROVIDED. CALL LIGHT WITHIN EASY TO REACH, ON LOW BED AT ALL TIMES TO ENSURE SAFETY, WILL ENDORSE TO THE NEXT SHIFT CONTINUE PLAN OF CARE.
[2017-01-24 07:00] VITALS: BP 150/81
--- NOTE | 2017-01-24 07:10 | NUR ---
TELE/RN AM NOTES RECEIVED PATIENT IN BED, AWAKE, ALERT, WITHOUT SOB, C/O ABDOMINAL PAIN 01/30, APPEARS COMFORTABLE, DAUGHTER AT THE BEDSIDE. ON RA, TOLERATING WELL. TELE MONITOR ATTACHED HR 82, SINUS RHTH Addendum: 01/24/17 at 0809 by MELINDA MARTINEZ RN SINUS RHYTHM. IV LINE RFA INTACT, PATENT. BED IN LOW POSITION, 2 SR UP FOR SAFETY. WITH CALL LIGHT WITHIN EASY REACH. WILL CONTINUE OT MONITOR ACCORDINGLY
[2017-01-24] MEDS: ALLOPURINOL 100 MG TABLET PO SCH ×2 (08:31→17:42)
[2017-01-24] MEDS: PANTOPRAZOLE 40 MG TABLET.DR PO SCH (08:31)
[2017-01-24] MEDS: ENALAPRIL MALEATE (10 MG) 10 MG TABLET PO SCH (08:31)
[2017-01-24 10:00] VITALS: BP 141/76
[2017-01-24 16:00] VITALS: BP 144/79
--- NOTE | 2017-01-24 19:00 | NUR ---
MS/RN CLOSING NOTES PATIENT IS IN THE BED, AWAKE, ALERT, WITHOUT SOB, NO DISTRESS, DENIES CHEST PAIN, FAMILY AT THE BEDSIDE. ON RA TOLERATING WELL, NO DISTRESS NOTED, SATURATING WELL. IV LINE RFA INTACT, PATENT WITH N/S 75 CC/H, TOLERATING WELL, NO S/SX FLUID OVERLOAD, BREATHING EVEN, UNLABORED. KEPT CLEAN, DRY, COMFORTABLE, NEEDS MET IN TIMELY MANNER, WITH CALL LIGHT WITHIN EASY REACH ALL THE TIME, WILL ENDORSE TO THE EDUCATION DEPARTMENT CHAIR NURSE FOR CHALINO
--- NOTE | 2017-01-24 19:20 | NUR ---
MS/FIBERGLASS BOAT ASSEMBLY SUPERVISOR; RECEIVED PT REPORTS FROM THE DAY SHIFT RN FOR CONTINUITY OF CARE. AT THIS TIME. PT IN BED ON SITTING POSITION AWAKE, ALERT AND ORIENTED. DENIES PAIN. BREATHING NON LABORED AND EVEN . DENIES PAIN. TURKISH SPEAKING. CHILDREN AT THE BEDSIDE VISITED. IVF ON PROGRESS. PT REMINDED STOOL SPECIMEN NEEDED. BED ON LOWER POSITION AND LOCKED FOR SAFETY. SIDE RAILS ARE UP FOR SAFETY. PT REMINDED TO CALL WHEN HE GOES TO THE BATHROOM AND HE KNOWS WITH DAUGHTER HELP AND EXPLAINED TO THE PT.
[2017-01-24 20:10] VITALS: BP 137/82
--- NOTE | 2017-01-24 20:15 | NUR ---
MS/MEASURING MACHINE OPERATOR ; PT WENT TO THE BATHROOM WITH THE USED OF PT. CANE AND WALKED FINE. PT TRYING TO DO BM BUT NO SUCCESS. ASSISTED BACK TO BED AND IVF RESUMED.
[2017-01-25] MEDS: IV NS 0.9% 1,000 ML IV PRN ×2 (00:52→23:41)
--- NOTE | 2017-01-25 07:00 | NUR ---
MS/ADJUNCT SOCIOLOGY PROFESSOR; SLEPT FAIRLY. BREATHING NON LABORED AND EVEN. VOIDED BUT STILL NO BM. IVF ON PROGRESS. CONTINUE TO MONITOR. CALL LIGHT AND URINAL WITHIN REACH. WILL ENDORSE TO THE DAY SHIFT NURSE.
--- NOTE | 2017-01-25 07:15 | NUR ---
MS/RN AM NOTES RECEIVED PATIENT IN BED, AWAKE, ALERT, NO SOB, ON RA TOLERATING WELL, DENIES PAIN, ASSISTED WITH BATHROOM PRIVILEGES. IV PERIPHERAL LINE RFA INTACT, PATENT. BED IN LOW POSITION, 2 SR UP FOR SAFETY, WITH CALL LIGHT WITHIN EASY REACH, WILL CONTINUE TO MONITOR ACCORDINGLY.
[2017-01-25 07:39] LABS: BASOPHILS % (AUTO) 0.3 % (0.0-2.0); EOSINOPHILS # (AUTO) 0.1 /CMM (0.0-0.7); HEMATOCRIT 32 % (39-51); HEMOGLOBIN 10.6 g/dL (13.5-17.5); LYMPHOCYTES # (AUTO) 1.1 /CMM (0.8-4.8); LYMPHOCYTES % (AUTO) 12.3 % (20.0-44.0); MEAN CORPUSCULAR HEMOGLOBIN 31 PG (26.0-33.0); MEAN CORPUSCULAR HGB CONC 34 g/dl (31.0-36.0); MEAN CORPUSCULAR VOLUME 93 fL (80-96); MONOCYTES # (AUTO) 0.5 /CMM (0.1-1.30); MONOCYTES % (AUTO) 6.3 % (2.0-12.0); NEUTROPHILS # (AUTO) 6.9 /CMM (1.8-8.9); NEUTROPHILS % (AUTO) 80.1 % (43.0-81.0); PLATELET COUNT (AUTO) 303 /CMM (150-450); RDW COEFFICIENT OF VARIATION 13.9 (11.5-15.0); RED BLOOD CELL COUNT(AUTO) 3.41 MIL/uL (4.5-6.0); WHITE BLOOD COUNT (AUTO) 8.6 K/uL (4.3-11.0)
[2017-01-25 08:00] VITALS: BP 127/60
[2017-01-25 08:03] LABS: CALCIUM, SERUM 8.5 mg/dL (8.5-10.1); CREATININE 1.4 mg/dL (0.6-1.3); PHOSPHORUS 3.4 mg/dL (2.5-4.9); POTASSIUM 4.2 mmol/L (3.5-5.1)
[2017-01-25 08:29] LABS: MAGNESIUM 1.2 mg/dL (1.8-2.4)
--- NOTE | 2017-01-25 08:46 | NUR ---
MS/RN NOTES LAB REPORTED MAGNESIUM LEVEL 1.2, IMMEDIATELY INFORMED DR. PENA AND PHARMACY FOR REPLACEMENT. PATIENT SITTING IN THE BED, NO CHANGES IN MENTAL STATUS, DENIES CHEST PAIN, OR SOB, WILL CONTINUE TO MONITOR CLOSELY. .
[2017-01-25] MEDS: ALLOPURINOL 100 MG TABLET PO SCH ×2 (08:50→17:39)
[2017-01-25] MEDS: ENALAPRIL MALEATE (10 MG) 10 MG TABLET PO SCH (08:51)
[2017-01-25] MEDS: PANTOPRAZOLE 40 MG TABLET.DR PO SCH (08:51)
--- NOTE | 2017-01-25 09:37 | NUR ---
DR. PENA ORDERED MAGNESIUM 4G IV, NOTED CARRIED OUT
[2017-01-25] MEDS ORDERED: SECONDARY IV SET 1 EA INFUS.SET MC ONE (09:54)
[2017-01-25 10:00] VITALS: BP 127/60
[2017-01-25] MEDS: Magnesium 1GM/D5W 100ML PREMIX 100 ML IV SCH ×4 (10:00→14:22)
[2017-01-25] MEDS ORDERED: Magnesium 1GM/D5W 100ML PREMIX PIGGYBACK IV ONE (10:00)
--- NOTE | 2017-01-25 13:41 | NUR ---
MS/RN NOTES PAGED DR. PENA ABOUT PATIENT'S LEFT SIDE FLANK PAIN, AND FAMILY CONCERNS REGARDING NEW CHANGES IN MENTAL STATUS, AND DISORIENTATION PATIENT HAVING AFTER HOSPITALIZATION
[2017-01-25 16:00] VITALS: BP 118/60
--- NOTE | 2017-01-25 18:00 | NUR ---
MS/RN NOTES DR. PENA VISITED, EXAMINED PATIENT, SPOKE WITH SON, ANSWERED TO PATIENT'S AND FAMILY CONCERNS ABOUT THE CARE, TO CONTINUE HOSPITALIZATION AND OBSERVATION. WILL CONTINUE TO MONITOR
--- NOTE | 2017-01-25 18:51 | NUR ---
MS/RN CLOSING NOTES PATIENT IS IN THE BED, AWAKE, ALERT, NO SOB, DENIES CHEST PAIN, FAMILY AT THE BEDSIDE. ON RA, SATURATING WELL. MAGNESIUM REPLACED ORDERED, IV LINE INTACT ON LFA, PATENT, NO S/SX BLEEDING OR INFECTION. KEPT CLEAN, DRY, COMFORTABLE, BED IN LOW POSITION, 2 SR UP FOR SAFETY, FAMILY AND PATIENT'S NEEDS ANTICIPATED IN TIMELY MANNER, WITH CALL LIGHT WITHIN EASY REACH ALL THE TIME. WILL ENDORSE TO THE SPINNING MULE TENDER NURSE FOR CHALINO
--- NOTE | 2017-01-25 20:00 | NUR ---
GPS RN NOTES RECEIVED PATIENT SLEEPING IN BED. FAMILY AT BEDSIDE. NO COMPLAINTS VERBALIZED AT THIS TIME. RESPIRATIONS EVEN AND UNLABORED.WITH NS 1L AT 75 ML/HR. WILL ASSIST PATIENT WITH REPOSITIONING. NO MEDS DUE AT THIS TIME. WILL MONITOR PATIENT FOR SAFETY.
[2017-01-25 20:15] VITALS: BP 162/73
--- NOTE | 2017-01-25 20:28 | NUR ---
live at home with dtneela Thomas, patient ambulates with assistive device, he requires min-mod assist with adl's. Has good family support. Will dc home upon discharge. Addendum: 01/25/17 at 2028 by KARLA BUSTOS RN Amended: Links added.
--- NOTE | 2017-01-26 07:30 | NUR ---
MS/RN OPENING NOTE PT. IS LYING IN BED AWAKE, A&OX2. MALAYSIAN SPEAKING. OPENS EYES TO NAME. NO S/S OF DISTRESS, NO SOB, BREATHING IS EVEN AND UNLABORED. PT. HAS IV FLUIDS INFUSING AT 75ML/HR ON THE LEFT FOREARM. PT. HAS A URINAL NEAR BEDSIDE. PT. USES ASSISTIVE DEVICE ON AMBULATION. CANE IS NEAR BEDSIDE. BED IS IN LOW POSITION, 2 SIDE RAILS ARE UP, CALL LIGHT IS WITHIN REACH, AND ATTENDED TO NEEDS.
[2017-01-26 07:46] LABS: BASOPHILS % (AUTO) 0.4 % (0.0-2.0); EOSINOPHILS % (AUTO) 0.3 % (0.0-6.0); HEMATOCRIT 29 % (39-51); HEMOGLOBIN 9.8 g/dL (13.5-17.5); LYMPHOCYTES # (AUTO) 1.5 /CMM (0.8-4.8); LYMPHOCYTES % (AUTO) 16.7 % (20.0-44.0); MEAN CORPUSCULAR HEMOGLOBIN 31 PG (26.0-33.0); MEAN CORPUSCULAR HGB CONC 34 g/dl (31.0-36.0); MEAN CORPUSCULAR VOLUME 92 fL (80-96); MONOCYTES # (AUTO) 0.7 /CMM (0.1-1.30); MONOCYTES % (AUTO) 7.4 % (2.0-12.0); NEUTROPHILS % (AUTO) 75.2 % (43.0-81.0); PLATELET COUNT (AUTO) 272 /CMM (150-450); RDW COEFFICIENT OF VARIATION 14.1 (11.5-15.0); RED BLOOD CELL COUNT(AUTO) 3.15 MIL/uL (4.5-6.0); WHITE BLOOD COUNT (AUTO) 9.3 K/uL (4.3-11.0)
[2017-01-26 08:00] VITALS: BP 140/71
[2017-01-26 08:03] LABS: CALCIUM, SERUM 8.1 mg/dL (8.5-10.1); CREATININE 1.3 mg/dL (0.6-1.3); MAGNESIUM 1.9 mg/dL (1.8-2.4); PHOSPHORUS 3.3 mg/dL (2.5-4.9); POTASSIUM 4.6 mmol/L (3.5-5.1)
[2017-01-26] MEDS: ENALAPRIL MALEATE (10 MG) 10 MG TABLET PO SCH (09:06)
[2017-01-26] MEDS: ALLOPURINOL 100 MG TABLET PO SCH ×2 (09:06→17:04)
[2017-01-26] MEDS: PANTOPRAZOLE 40 MG TABLET.DR PO SCH (09:07)
--- NOTE | 2017-01-26 11:00 | NUR ---
MS/RN PT. AND FAMILY WAS ENCOURAGED TO DRINK FLUIDS TO MAINTAIN HYDRATION.
[2017-01-26] MEDS: AMLODIPINE BESYLATE 10 MG TABLET PO SCH (13:31)
[2017-01-26] MEDS ORDERED: IV NS 0.9% 1,000 ML BAG IV PRN ×2 (14:00)
[2017-01-26] MEDS ORDERED: IV NS 0.9% 1,000 ML IV PRN (14:00)
[2017-01-26] MEDS: IV NS 0.9% 1,000 ML IV PRN (14:19)
--- NOTE | 2017-01-26 14:27 | NUR ---
MS/RN STOOL SAMPLE PT. HAD 2X LARGE AMOUNT OF TARRY WATERY STOOLS. STOOL SAMPLE WAS TAKEN AND DR. CHEN, AND LAB WAS NOTIFIED.
--- NOTE | 2017-01-26 14:45 | NUR ---
MS/RN URINE SAMPLE TAKEN URINE SAMPLE WAS TAKEN AND LAB WAS NOTIFIED
[2017-01-26 15:24] LABS: URINE SODIUM, RANDOM 79 mmol/l (40-220)
[2017-01-26 15:45] LABS: OSMOLALITY,URINE 320 mOS/kg (340-1090)
[2017-01-26 16:00] VITALS: BP 113/54
--- NOTE | 2017-01-26 16:50 | NUR ---
MS/RN TYLENOL GIVEN PT. HAD A TEMP. OF 99.5, ICE PACK WAS PLACED ON BACK AND TYLENOL WAS GIVEN. REASSESSED TEMP. PT. TEMP. IS 99.3.
[2017-01-26] MEDS: ACETAMINOPHEN 325 MG TABLET PO PRN (17:02)
--- NOTE | 2017-01-26 19:30 | NUR ---
MS/RN CLOSING NOTE PT. IS IN BED AWAKE, A&OX2. BENGALI SPEAKING. NO S/S OF DISTRESS, NO SOB, BREATHING IS EVEN AND UNLABORED. IV FLUIDS RUNNING AT 75ML/HR ON THE LEFT FOREARM. BED IS IN LOW POSITION, 2 SIDE RAILS UP, CALL LIGHT WITHIN REACH, AND ALL NEEDS ATTENDED TO.
--- NOTE | 2017-01-26 19:30 | NUR ---
RN NOTES: RECEIVED PATIENT LYING COMFORTABLY IN BED, AWAKE AND COHERENT, IRISH SPEAKING,PER SON AT BED SIDE PATIENT HAS NO COMPLAINTS OR DISCOMFORT AT THIS TIME.IV CANNULA ON THE LFA G#22,IVF OF NS AT 75 ML/HR,LATEST TEMP.99.3,FALL, SAFETY ANDASPIRATION PRECAUTION OBSERVE, CALL LIGHT WITHINREACH, BED LOW AND LOCKED.
[2017-01-26 20:00] VITALS: BP_SYST 106; BP_DIAS 56; BP_DIAS 59
--- NOTE | 2017-01-26 23:00 | NUR ---
RN NOTES: SPONGE BATH RENDERED,DIAPER CHANGE,TURNING AND REPOSITIONING DONE.
[2017-01-27] MEDS: IV NS 0.9% 1,000 ML IV PRN ×2 (04:39→20:21)
--- NOTE | 2017-01-27 04:40 | NUR ---
RN NOTES: NEW BAG OF NS AT 75ML/HR STARTED, ASLEEP IN THE NIGHT NO PAIN OR DISCOMFORT.
--- NOTE | 2017-01-27 06:53 | NUR ---
RN NOTES: PASS STOOL AGAIN, CLEAN AND CHANGE,F/U STOOL RESULT IN THE LABORATORY FOR C.DIFF NOT YET AVAILABLE SPOKE WITH HAILE, NO PAIN AND DISCOMFORT, WILL ENDORSE TO NEXT SHIFT FOR CONTINUITY OF CARE,CALL LIGHT WITHIN EAST REACH.
[2017-01-27 07:26] LABS: THYROID STIMULATING HORMONE 2.143 uIU/mL (0.358-3.74); URIC ACID 6.2 mg/dL (2.6-7.2)
--- NOTE | 2017-01-27 07:28 | NUR ---
MS/RN OPENING NOTE PT. IS IN BED SLEEPING WITH HEAD OF BED FLAT. NO S/S OF DISTRESS, NO SOB, AND BREATHING EVENLY. PT. HAS IV FLUIDS INFUSING AT 75ML/HR ON LEFT FOREARM. BED IS IN LOW POSITION, 2 SIDE RAILS UP NEAR HEAD OF BED, AND CALL LIGHT WITHIN REACH. REPORT WAS GIVEN BY MANAGER PERFORMANCE NURSE.
[2017-01-27 07:29] LABS: CALCIUM, SERUM 8.1 mg/dL (8.5-10.1); CREATININE 1.3 mg/dL (0.6-1.3); MAGNESIUM 1.5 mg/dL (1.8-2.4); PHOSPHORUS 3.6 mg/dL (2.5-4.9); POTASSIUM 4.5 mmol/L (3.5-5.1)
[2017-01-27 08:00] VITALS: BP 137/67
[2017-01-27] MEDS: PANTOPRAZOLE 40 MG TABLET.DR PO SCH (08:38)
[2017-01-27] MEDS: ALLOPURINOL 100 MG TABLET PO SCH ×2 (08:38→19:48)
[2017-01-27] MEDS: ENALAPRIL MALEATE (10 MG) 10 MG TABLET PO SCH (08:39)
[2017-01-27] MEDS: AMLODIPINE BESYLATE 10 MG TABLET PO SCH (08:40)
[2017-01-27 09:00] VITALS: BP 137/67
[2017-01-27] MEDS ORDERED: SECONDARY IV SET 1 EA INFUS.SET MC ONE (12:04)
[2017-01-27] MEDS: Magnesium 1GM/D5W 100ML PREMIX 100 ML IV SCH ×2 (12:20→13:46)
[2017-01-27] MEDS ORDERED: DIPHENOXYLATE HCL/ATROP SULF 1 UDTAB TABLET PO ONE (15:00)
[2017-01-27 16:00] VITALS: BP 121/72
[2017-01-27 17:45] LABS: URINE SODIUM, RANDOM 84 mmol/l (40-220)
[2017-01-27 18:23] LABS: OSMOLALITY,URINE 278 mOS/kg (340-1090)
--- NOTE | 2017-01-27 19:30 | NUR ---
MS RN OPENING NOTES: PATIENT IN BED, AOX2, ON ROOM AIR, BREATHING EVEN AND UNLABORED. BREATH SOUNDS CLEAR TO AUSCULTATION. APPEARS CALM AND IN NO DISTRESS. DENIES PAIN AT THIS TIME. PIV OVER LFA G 22 INTACT AND INFUSING WELL WITH NS RUNNING AT 75 ML/HR. ABDOMEN NOTED TO BE DISTENDED, WITH UMBILICAL EVERSION. PATIENT DENIES ANY PAIN UPON DEEP PALPATION. PROVIDED FOR COMFORT NAD SAFETY. BED IN LOWEST AND LOCKED POSITION. SIDERAILS UP X3. WILL CONT TO MONITOR.
--- NOTE | 2017-01-27 20:00 | NUR ---
MS/RN CLOSING NOTE PT. IS LYING IN BED AWAKE, A&OX4, PT'S DAUGHTER TRANSLATED FROM ARABIC TO BRITISH [place]. NO S/S OF DISTRESS, NO SOB, BREATHING IS EVEN AND UNLABORED. PT. HAS CANE NEAR BEDSIDE. IV FLUIDS RUNNING AT 75ML/HR ON THE LEFT FOREARM. BED IS IN LOW POSITION, 2 SIDE RAILS UP, CALL LIGHT WITHIN REACH, AND ALL NEEDS ATTENDED TO. WILL ENDORSE REPORT TO MACHINE SHOP LEAD MAN NURSE.
[2017-01-27 21:01] VITALS: BP 114/54
[2017-01-27 22:00] VITALS: BP 114/54
--- NOTE | 2017-01-28 03:00 | NUR ---
RN NOTES: DIAPER CHANGED, PATIENT HAS 3RD BM AT THIS TIME, SOFT IN CONSISTENCY, BROWNISH COLOR. WILL CONT TO MONITOR.
--- NOTE | 2017-01-28 06:43 | NUR ---
MS RN CLOSING NOTES: PATIENT IN BED, AOX2, ON ROOM AIR, BREATHING EVEN AND UNLABORED. APPEARS CALM AND IN NO APPARENT DISTRESS. PIV OVER LFA G 22 INTACT AND PATENT , INFUSING WELL WITH NS RUNNING AT 75 ML/HR. NO ACUTE CHANGE IN CONDITION NOTED THROUGH SHIFT. DUE MEDS GIVEN. TURNED AND REPOSITIONED. MORNING CARE RENDERED. PROVIDED FOR COMFORT AND SAFETY. WILL ENDORSE TO AM RN FOR CHALINO.
[2017-01-28 08:00] VITALS: BP 118/69
--- NOTE | 2017-01-28 08:00 | NUR ---
m/s special forces communications sergeant: initial assessment received pt in bed awake, a/ox2-3; monegasque speaking only. reality orientation provided prn. no c/o pain or any discomfort. continue on ivf, and fluid restriction. blood sodium level remains at 128. instructed to call for assistance.
[2017-01-28 08:05] LABS: CALCIUM, SERUM 7.8 mg/dL (8.5-10.1); CREATININE 1.3 mg/dL (0.6-1.3); MAGNESIUM 1.5 mg/dL (1.8-2.4); POTASSIUM 4.5 mmol/L (3.5-5.1)
[2017-01-28] MEDS: PANTOPRAZOLE 40 MG TABLET.DR PO SCH (08:37)
[2017-01-28] MEDS: ALLOPURINOL 100 MG TABLET PO SCH ×2 (08:37→17:07)
[2017-01-28] MEDS: ENALAPRIL MALEATE (10 MG) 10 MG TABLET PO SCH (08:37)
[2017-01-28] MEDS: AMLODIPINE BESYLATE 10 MG TABLET PO SCH (08:38)
[2017-01-28] MEDS: IV NS 0.9% 1,000 ML IV PRN (08:42)
[2017-01-28] MEDS ORDERED: SECONDARY IV SET 1 EA INFUS.SET MC ONE (11:56)
--- NOTE | 2017-01-28 12:00 | NUR ---
M/S LEAD NEURODIAGNOSTIC TECHNOLOGIST: NEPHRO F/U SEEN BY DR. RODRÍGUEZ AT THIS TIME.
[2017-01-28] MEDS: Magnesium 1GM/D5W 100ML PREMIX 100 ML IV SCH ×2 (12:09→13:49)
[2017-01-28 16:00] VITALS: BP 120/79
--- NOTE | 2017-01-28 16:00 | NUR ---
m/s kiss mixer: notes family (3) visiting at this time.
--- NOTE | 2017-01-28 17:00 | NUR ---
m/s marketing compliance manager: md visit seen and examined by dr. navarro at this time. family remains at bedside and updated plan of care per md. for d'c planning tomorrow. will continue to monitor.
--- NOTE | 2017-01-28 18:19 | NUR ---
m/s marble polisher: notes pt up and about in room with family at bedside. no c/o pain or any discomfort. instructed to call for assistance. will continue to monitor.
--- NOTE | 2017-01-28 19:00 | NUR ---
m/s marine cargo surveyor: notes report given to brad (gordon) for continuity of care.
--- NOTE | 2017-01-28 19:25 | NUR ---
MS/RN NOTES RECEIVED PT IN STABLE CONDITION. EYES CLOSED, EASILY AWAKEN, A&OX2. ON RA WITH UNLABORED BREATHING. IV HL TO LFA #22, CDI. PT MADE AWARE OF PLAN OF CARE INCLUDING BLOOD DRAWN IN AM, INTERPRETED IN WALLISIAN, AND VERBALIZED UNDERSTANDING. PT STATES HE JUST WANTS TO GO TO SLEEP. NO COMPLAINTS OR CONCERNS MADE. BED AT LOWEST POSITION AND LOCKED, HOB ELEVATED, SIDE TABLE AND CALL BUSTILLOS WITHIN REACH, BED ALARM ON. WILL CONTINUE TO MONITOR.
[2017-01-28 20:00] VITALS: BP 110/50
[2017-01-28] MEDS ORDERED: DIPHENOXYLATE HCL/ATROP SULF 1 UDTAB TABLET PO PRN (23:30)
[2017-01-29] MEDS ORDERED: DIPHENOXYLATE HCL/ATROP SULF 1 UDTAB TABLET ONE (05:59)
--- NOTE | 2017-01-29 06:59 | NUR ---
MS/RN NOTES NO DISTRESS NOTED. SLEPT MOST OF NIGHT WITH NO COMPLAINTS DURING SHIFT. BM X3, AMI CASTRO. LOMOTIL GIVEN. ALL NEEDS MET. CALL BUSTILLOS AND SIDE TABLE WITHIN REACH. BED ALARM ON. WILL ENDORSE TO AM SHIFT FOR CONTINUITY OF CARE.
[2017-01-29 07:37] LABS: BASOPHILS % (AUTO) 0.4 % (0.0-2.0); EOSINOPHILS % (AUTO) 0.1 % (0.0-6.0); HEMATOCRIT 29 % (39-51); HEMOGLOBIN 9.6 g/dL (13.5-17.5); LYMPHOCYTES % (AUTO) 22.4 % (20.0-44.0); MEAN CORPUSCULAR HEMOGLOBIN 30 PG (26.0-33.0); MEAN CORPUSCULAR HGB CONC 33 g/dl (31.0-36.0); MEAN CORPUSCULAR VOLUME 91 fL (80-96); MONOCYTES # (AUTO) 0.6 /CMM (0.1-1.30); MONOCYTES % (AUTO) 6.8 % (2.0-12.0); NEUTROPHILS # (AUTO) 6.4 /CMM (1.8-8.9); NEUTROPHILS % (AUTO) 70.3 % (43.0-81.0); PLATELET COUNT (AUTO) 429 /CMM (150-450); RDW COEFFICIENT OF VARIATION 13.9 (11.5-15.0); RED BLOOD CELL COUNT(AUTO) 3.16 MIL/uL (4.5-6.0); WHITE BLOOD COUNT (AUTO) 9.1 K/uL (4.3-11.0)
[2017-01-29 08:00] VITALS: BP 114/56
--- NOTE | 2017-01-29 08:00 | NUR ---
m/s rn critical care: initial assessment received pt in bed awake, a/ox2-3; st helenian speaking only. reality orientation provided prn. no c/o pain or any discomfort. continue on ivf, and fluid restriction. blood sodium level at 125. instructed to call for assistance.
[2017-01-29 08:01] LABS: CALCIUM, SERUM 8.1 mg/dL (8.5-10.1); CREATININE 1.5 mg/dL (0.6-1.3); MAGNESIUM 1.7 mg/dL (1.8-2.4); PHOSPHORUS 3.6 mg/dL (2.5-4.9); POTASSIUM 4.6 mmol/L (3.5-5.1)
[2017-01-29] MEDS: AMLODIPINE BESYLATE 10 MG TABLET PO SCH (08:49)
[2017-01-29 08:50] VITALS: BP 114/55
[2017-01-29] MEDS: ALLOPURINOL 100 MG TABLET PO SCH (08:50)
[2017-01-29] MEDS: ENALAPRIL MALEATE (10 MG) 10 MG TABLET PO SCH (08:50)
--- NOTE | 2017-01-29 10:00 | NUR ---
m/s roll cleaner: md visit seen and examined by mariusz (reynoldp) at this time. pt for discharge planning home today. pt verbalized understanding when translated in nepalese by staff.
--- NOTE | 2017-01-29 10:30 | NUR ---
m/s actor understudy: notes daughter visiting at this time and made aware re: d'c planning to home today, just awaiting for order.
[2017-01-29] MEDS ORDERED: AMLO10TA2 PO (12:04)
[2017-01-29] MEDS ORDERED: FURO-145 PO (12:04)
--- NOTE | 2017-01-29 12:04 | NUR ---
m/s shallot cleaner: notes received order to discharge pt home. order acknowledged.
[2017-01-29] MEDS: ACETAMINOPHEN 325 MG TABLET PO PRN (12:13)
--- NOTE | 2017-01-29 12:14 | NUR ---
M/S FAMILY WELFARE SOCIAL WORK PROFESSOR: NOTES DAUGHTER MADE AWARE, BUT HAS TO GO TO WORK AT 1230 AND SISTER (DON) WILL BE PICKING HIM UP AT 1500 STATED. PT AWARE.
--- NOTE | 2017-01-29 12:30 | NUR ---
m/s stoneworker: notes pt refused skin photos before discharge when asked. awaiting for daughter to come. will continue to monitor.
[2017-01-29] MEDS ORDERED: MAGNESIUM OXIDE 400 MG TABLET PO ONE (12:45)
--- NOTE | 2017-01-29 13:15 | NUR ---
m/s speech language pathology assistant: notes kofi (daughter) here to pick him up. discharged instructions with medications teaching provided and verbalized understanding. h/l removed with tip intact with no swelling, no redness, and no bleeding noted. daughter brought clothes. [employer] exchange administrator to assist pt with clothes.
--- NOTE | 2017-01-29 13:32 | NUR ---
m/s waste salvager: discharged discharged home accompanied by home via private car in stable condition with all dc papers and valuable.
== END 2017-01-29 13:32 | disposition home or self-care (01) | DRG 199 ==
LOC: ER 00:52 → TELE 03:22 → MED 08:42
PROVIDERS: ADMIT Contractor; ATTEND Internal Medicine
DX: I16.0 Hypertensive urgency (principal); I21.4 Non-ST elevation (NSTEMI) myocardial infarction; G93.41 Metabolic encephalopathy; E87.2 Acidosis; E22.2 Syndrome of inappropriate secretion of antidiuretic hormone; E44.0 Moderate protein-calorie malnutrition; K80.20 Calculus of gallbladder without cholecystitis without obstruction; I12.9 Hypertensive chronic kidney disease with stage 1 through stage 4 chronic kidney disease, or unspecified chronic kidney disease; N18.3 Chronic kidney disease, stage 3 (moderate); E66.9 Obesity, unspecified; E78.5 Hyperlipidemia, unspecified; F03.90 Unspecified dementia, unspecified severity, without behavioral disturbance, psychotic disturbance, mood disturbance, and anxiety; K21.9 Gastro-esophageal reflux disease without esophagitis; D63.8 Anemia in other chronic diseases classified elsewhere; E83.42 Hypomagnesemia; K76.89 Other specified diseases of liver; Z68.31 Body mass index [BMI] 31.0-31.9, adult
CPT/HCPCS: 36415; 80048-TC; 80061-TC; 80076-TC; 81000-TC; 82272-TC; 83690-TC; 83735-TC; 83935-TC; 84100-TC; 84300-TC; 84443-TC; 84484-TC; 84550-TC; 85025-TC; 85730-TC; 87081-TC; A4606; A6402; C9113; J3475; J7030; J7040; Z7610

== ENCOUNTER 2017-02-03 05:49 | Inpatient (IN) | payer OTHER ==
[~2017-02-03] VITALS: Ht 165.1 cm; Wt 68.0 kg
[~2017-02-03 05:49] MED LIST changes: +AMLO10TA2 PO; +FURO-145 PO
[2017-02-03 08:00] VITALS: BP 123/71
--- NOTE | 2017-02-03 08:00 | NUR ---
MS SOCKET PULLER NOTE PATIENT IS ALERT AND ORIENTED x4. ENGLISH SPEAKING. DAUGHTER AT BEDSIDE. COMPLAINING OF ABDOMINAL PAIN /. CONTINENT, USES URINAL. ABLE TO COMMUNICATE NEEDS. IV IN RIGHT AC #20 GAUGE INTACT AND PATENT NO REDNESS OR SWELLING NOTED. NO KNOWN ALLERGIES. AMBULATES WITH ASSISTANCE. AWAITING FOR MD ORDERS. WILL CONTINUE TO MONITOR
--- NOTE | 2017-02-03 10:30 | NUR ---
MS RN NOTE PER DR. HAWTHORNE TO PUT PATIENT NOTHING BY MOUTH. ALSO PER DR. HAWTHORNE TO NOTIFY PRUDENCE ADAMS FOR BACK BRACE FOR PATIENT. WILL FOLLOW UP
[2017-02-03] MEDS ORDERED: IV D5/0.45 NACL 1,000 ML IV PRN (11:54)
[2017-02-03] MEDS ORDERED: Z GUARD REMEDY 2 OZ OINT TP PRN (12:00)
[2017-02-03] MEDS ORDERED: ACETAMINOPHEN 325 MG TABLET PO PRN (12:00)
[2017-02-03] MEDS ORDERED: ZOLPIDEM TARTRATE 5 MG TABLET PO PRN (12:00)
[2017-02-03] MEDS ORDERED: HYDROCODONE/APAP 5/325MG 1 EACH TABLET PO PRN (12:00)
[2017-02-03] MEDS ORDERED: MAGNESIUM HYDROXIDE 30 ML UDC PO PRN (12:00)
[2017-02-03] MEDS ORDERED: ONDANSETRON HCL/PF 4 MG/2 ML VIAL IVP PRN (12:00)
[2017-02-03] MEDS ORDERED: MAG HYDROX/AL HYDROX/SIMETH 30 ML UDC PO PRN (12:00)
[2017-02-03 13:18] LABS: TROPONIN I 0.018 ng/mL (0.00-0.056)
--- NOTE | 2017-02-03 13:30 | NUR ---
RN NOTE INSERTED LEVI CATHETER, NO COMPLICATIONS DURING INSERTION. NO SIGNS OF BLEEDING NOTED. PATIENT TOLERATED LEVI INSERTION WELL.
[2017-02-03] MEDS ORDERED: IV SET PRIMARY PUMP SET 1 EA INFUS.SET MC ONE (14:12)
[2017-02-03 16:43] VITALS: BP 123/65
--- NOTE | 2017-02-03 18:43 | NUR ---
MS RN CLOSING NOTE PATIENT IS ALERT AND ORIENTED x4. SIERRA LEONEAN SPEAKING. IV INTACT AND PATENT NO REDNESS OR SWELLING NOTED. CURRENTLY NOTHING BY MOUTH. WILL HAVE HIDA SCAN DONE TOMORROW 02/04/17. CALL LIGHT WITHIN REACH. LEVI CATHETER INSERTED THIS AFTERNOON, NO COMPLICATIONS. SAFETY MEASURES IMPLEMENTED. ABLE TO COMMUNICATE NEEDS. WILL ENDORSE TO ASSAULT AMPHIBIOUS VEHICLE CREWMAN NURSE
[2017-02-03 18:46] LABS: BILIRUBIN,TOTAL 0.4 mg/dL (0.2-1.0); CALCIUM, SERUM 8.6 mg/dL (8.5-10.1); CREATININE 1.5 mg/dL (0.6-1.3); POTASSIUM 4.7 mmol/L (3.5-5.1)
--- NOTE | 2017-02-03 19:15 | NUR ---
RECEIVED PATIENT IN BED AWAKE AND RESPONSIVE, RESPIRATION EVEN AND UNLABORED, NO SIGN OF DISCOMFORT NOTED. IV SITE LOCATED IN LEFT ARM WITH NO SIGN OF INFILTRATION, NON SWELLING OR SKIN DISCOLORATION. SOME SKIN DISCOLORATION ON LEFT AND RIGHT ARM WITH NO OTHER OPEN SKIN. PATIENT IN LEVI CATH IN PLACE AND SECURED. WILL CONTINUE TO MONITOR.
[2017-02-03 20:00] VITALS: BP 127/64
--- NOTE | 2017-02-03 22:00 | NUR ---
PATIENT AWAKE RESPOSIVE. NO SIGN OF DISTRESS OR DISCOMFORT NOTED, REPOSTION PATIENT FOR COMFORT. IV LINE REMAIN IN PLACE AND SECURE. WILL MONITOR.
[2017-02-04] VITALS (40 sets, daily range): BP systolic 74–120; BP diastolic 30–64
--- NOTE | 2017-02-04 | NUR ---
PATIENT SLEEPING COMFORTABLY IN BED WITH NO CHANGES IN CONDITION. IV LINE REMAIN IN PLACE AND SECURE INTACT. WILL CONTINUE TO MONITOR.
--- NOTE | 2017-02-04 02:15 | NUR ---
PATIENT IN THE BATHROOM ASSISTED BY ONLINE MARKETER WITH MODERATE BLOODY STOOL NOTED IN THE TOILET AND TRANSFERRED BACK TO HIS BED WITH THE HELP OF THE ONLINE MARKETER AND APPEARS FAINTED WITH NO SHORTNESS OF BREATH OR SIGN OF DISCOMFORT DURING THE TRANSFER. ONLINE MARKETER REMAINED AT BEDSIDE. WILL CONTINUE TO MONITOR.
--- NOTE | 2017-02-04 02:25 | NUR ---
CHECK BLOOD PRESSURE AND WAS 80'S AND GOING DOWN TO MID 70'S. O2 GIVEN D/T SLIGHT SOB. PATIENT REMAIN RESPONSIVE, CARBON BRUSH MAKER REMAIN AT BEDSIDE. WILL CONTINUE TO MONITOR AND WILL REPORT TO CHARGE NURSE.
--- NOTE | 2017-02-04 02:45 | NUR ---
TELERN ASSISTANT COOK REPORTED PATIENT HAD BLOODY STOOLS IN RESTROOM AND ALMOST PASSED OUT GOING BACK TO BED. CHECKED PATIENT VERY WEEK STILL ABLE TO RESPOND VERBALLY, SLIGHT SOB, 01 MAINTAINED. BP WAS ON THE 80s. RECHECKED BP GOING DOWN TO MID 70s, STAT LABS CALLED TO LAB. PLACED CALL TO DR. BRADLEY, ORDERS RECEIVED. STARTED ON BOLUS NS OPEN WIDE X 1 LITER. BP MONITORED.
[2017-02-04] MEDS ORDERED: IV NS 0.9% 1,000 ML ONE ×2 (02:46→04:03)
--- NOTE | 2017-02-04 02:55 | NUR ---
TELERN PLACED CALL TO HOUSESUPERVISOR, INFORMED PATIENTS STATUS. AWAITING FOR BED.
--- NOTE | 2017-02-04 03:05 | NUR ---
TELERN NO BED AVAILBLE IN [place], PER REHABILITATION AIDE, PATIENT TO BE MOVED TO ROOM 260 INSTEAD.
[2017-02-04 03:11] LABS: BASOPHILS % (AUTO) 0.3 % (0.0-2.0); EOSINOPHILS # (AUTO) 0.1 /CMM (0.0-0.7); HEMATOCRIT 25 % (39-51); HEMOGLOBIN 8.1 g/dL (13.5-17.5); LYMPHOCYTES % (AUTO) 25.5 % (20.0-44.0); MEAN CORPUSCULAR HEMOGLOBIN 30 PG (26.0-33.0); MEAN CORPUSCULAR HGB CONC 32 g/dl (31.0-36.0); MEAN CORPUSCULAR VOLUME 91 fL (80-96); MONOCYTES # (AUTO) 0.6 /CMM (0.1-1.30); MONOCYTES % (AUTO) 5.4 % (2.0-12.0); NEUTROPHILS # (AUTO) 8.1 /CMM (1.8-8.9); NEUTROPHILS % (AUTO) 67.8 % (43.0-81.0); PLATELET COUNT (AUTO) 692 /CMM (150-450); RDW COEFFICIENT OF VARIATION 14.7 (11.5-15.0); RED BLOOD CELL COUNT(AUTO) 2.76 MIL/uL (4.5-6.0); WHITE BLOOD COUNT (AUTO) 11.9 K/uL (4.3-11.0)
--- NOTE | 2017-02-04 03:20 | NUR ---
TELERN PATIENT TO ICU WITH FRONT END SOFTWARE ENGINEER AND O2, ACCOMPANIED BY PROTOTYPE MACHINIST AND RN, VIA BED WITH ALL PERSONAL BELONGINGS.
--- NOTE | 2017-02-04 03:20 | NUR ---
TRANSFERRED PATIENT TO ICU ACCOMPANIED BY RN , COFFEE BAR ATTENDANT AND FULL TIME PARAMEDIC, VIA BED WITH ALL PERSONAL BELONGINGS. PATIENT TO ICU WITH MEAT SERVICE TEAM MEMBER AND O2.
[2017-02-04 03:26] LABS: PROTHROMBIN TIME 10.7 SECS (9.5-12.7)
[2017-02-04] MEDS ORDERED: IV NS 0.9% 1,000 ML BAG IV PRN (03:30)
--- NOTE | 2017-02-04 03:31 | NUR ---
TELERN LEFT MESSAGE TO DAUGHTER EVAN REGARDING PATIENTS' CHANGE OF CONDITION.
[2017-02-04 03:35] LABS: ALBUMIN 2.3 g/dL (3.4-5.0); BILIRUBIN,TOTAL 0.3 mg/dL (0.2-1.0); CREATININE 1.7 mg/dL (0.6-1.3); PHOSPHORUS 4.3 mg/dL (2.5-4.9); POTASSIUM 4.7 mmol/L (3.5-5.1); TOTAL PROTEIN, SERUM 5.5 g/dL (6.4-8.2)
--- NOTE | 2017-02-04 03:36 | NUR ---
WHILE IN ICU DAUGHTER CALLED AND AND INFORMED REGARDING PATIENT CONDITION.
[2017-02-04 03:39] LABS: MAGNESIUM 1.2 mg/dL (1.8-2.4)
[2017-02-04 03:43] LABS: THYROID STIMULATING HORMONE 6.903 uIU/mL (0.358-3.74)
--- NOTE | 2017-02-04 03:45 | NUR ---
RE CHECK BLOOD PRESSURE AND REMAIN 80'S TO MID 70'S. REMAIN ON O2 D/T SLIGHT SOB. PATIENT REMAIN RESPONSIVE, SALES REPRESENTATIVE METALS REMAIN AT BEDSIDE. REPORTED TO CHARGE NURSE.
--- NOTE | 2017-02-04 03:50 | NUR ---
PROGRAM REP: RECEIVED PT FROM [facility], REPORT RECEIVED FROM NAYELI/CHARGE NURSE, REASON FOR TRANSFER FRESH RECTAL BLEEDING, STAT CBC AND BMP DONE, RESULT RELAYED TO DR FIELDS, MAG 1.2, ORDERS TO GIVE 3 GM IV MAGNESIUM, ONE FFP DUE TO BLEEDING, PRBC ON HOLD ONLY GIVE IF PT HAVE CONTINUE BLEEDING. H/H 8.10/17. PT IS AAO X 2. LOOKS LETHARGIC, NS BOLUS 1 L RUNNING , BP IN LOWER SIDE 93/62. KEEP MONITORING,,..
[2017-02-04] MEDS ORDERED: Magnesium 1GM/D5W 100ML PREMIX 200 ML IV ONE (03:56)
[2017-02-04] MEDS ORDERED: IV SET PRIMARY PUMP SET 1 EA INFUS.SET MC ONE (03:56)
--- NOTE | 2017-02-04 03:58 | NUR ---
GIRL FRIDAY: DIAPER CHECKED, NO BLEEDING NOTED AT THIS TIME. PER PREVIOUS NURSE PT HAD MODERATE AMOUNT OF FRESH RECTAL BLEEDING WHILE USING BATHROOM. PT DOES HAVE HISTORY OF ACUTE ANEMIA, ISCHEMIC COLITIS AND GI BLEED. ALL CARE PLAN DISCUSSED WITH, NO PRBC AT THIS TIME EXCEPT ACTIVE BLEEDING. WILL GIVE FFP ONCE READY.
[2017-02-04] MEDS ORDERED: PLATELET IV SET 1 EA INFUS.SET MC ONE ×2 (04:03→04:04)
[2017-02-04] MEDS: Magnesium 1GM/D5W 100ML PREMIX 100 ML IV SCH ×3 (04:04→05:49)
[2017-02-04] MEDS: IV NS 0.9% 1,000 ML IV PRN ×2 (04:08→20:55)
--- NOTE | 2017-02-04 04:11 | NUR ---
PAINT DIPPER: MAGNESIUM IV FIRST BAG RUNNING , PT COMFORTABLY SLEEPING, DENIED ANY PAIN INCLUDES CHEST PAIN. IV ACCESS RIGHT FOOT #20 INSERTED BY ED/CHARGE NURSE. NS BOLUS DONE, NS AT 100 ML/HR RUNNING. BP STABLE. AWAITING FOR FFP TO BE READY....
[2017-02-04] MEDS ORDERED: Magnesium 1GM/D5W 100ML PREMIX 100 ML IV ONE (05:43)
[2017-02-04] MEDS: PANTOPRAZOLE 40 MG TABLET.DR PO SCH (07:30)
--- NOTE | 2017-02-04 07:30 | NUR ---
ICU/RN: PT RECEIVED IN BED, EYES CLOSED, BREATHING EVEN AND UNLABORED ON RA, DENIES PAIN AND DISCOMFORT. IVF INFUSING WELL THROUGH L WRIST #22. IV HL ON R FOOT PATENT AND INTACT . FC DRAINING WELL TO GRAVITY. WILL CONT TO MONITOR PT STATUS.
--- NOTE | 2017-02-04 08:45 | NUR ---
ICU/RN: PT NOTED WITH LARGE AMOUNT OF DARK RED STOOL. REPORTS DIZZINESS AND WEAKNESS. HYGIENIC CARE RENDERED. DAUGHTER AT THE BEDSIDE. EDUCATED ON POC. PT AND FAMILY IN AGREEMENT.
[2017-02-04] MEDS ORDERED: IV NS 0.9% 250 ML IV ONE (09:09)
[2017-02-04] MEDS ORDERED: BLOOD IV SET 1 EA INFUS.SET MC ONE (09:09)
--- NOTE | 2017-02-04 09:28 | NUR ---
ICU/RN: FOLLOWED UP WITH NSG PATHOLOGY SUPERVISOR REGARDING MIDLINE INSERTION.
--- NOTE | 2017-02-04 10:49 | NUR ---
ICU/RN: PT NOTED WITH 2ND BLOODY STOOL. 1ST UNIT PRBC ONGOING. HEMODYNAMICALLY STABLE. REMAINS NPO.
--- NOTE | 2017-02-04 12:35 | NUR ---
ICU/RN: DR RICKS AT BEDSIDE; UPDATED ON PT STATUS. PT FOR EGD; CONSENTS OBTAINED. NEW ORDERS NOTED AND CARRIED OUT.
--- NOTE | 2017-02-04 15:48 | NUR ---
ICU/RN: NOTIFIED DR HAWTHORNE OF PT [facility], DR RICKS RECOMMENDATIONS, FOR EGD TOMORROW, NPO STATUS. INFORMED OF NEED FOR PT HOME MED RECONCILIATION. AWAITING ORDERS.
[2017-02-04 16:25] LABS: APPEARANCE,URINE SL CLOUDY (CLEAR); BILIRUBIN,URINE NEGATIVE (NEGATIVE); BLOOD, URINE 3+ Ery/uL (NEGATIVE); COLOR,URINE YELLOW (YELLOW); KETONES,URINE NEGATIVE (NEGATIVE); LEUKOCYTE ESTERASE ,URINE NEGATIVE (NEGATIVE); NITRITE, URINE NEGATIVE (NEGATIVE); PH,URINE 6.5 (5.0-8.0); PROTEIN,URINE NEGATIVE (NEGATIVE); UGLUCOSE NEGATIVE (NEGATIVE); UROBILINOGEN,URINE 0.2 EU/dL (0.2)
[2017-02-04 16:53] LABS: BACTERIA,URINE None seen /HPF (None Seen); RBC,URINE 21-50 /HPF (0-2); SQUAMOUS EPITHELIAL CELL,UR Rare /HPF (None Seen); WBC,URINE 0-2 /HPF (0-3)
--- NOTE | 2017-02-04 19:15 | NUR ---
ICU/RN: PT RESTING IN BED, EYES CLOSED, NO DISTRESS NOTED, DENIES DIZZINESS AND PAIN. TOLERATED BLOOD TRANSFUSION WELL. FC DRAINING WELL TO GRAVITY. CARE ENDORSED TO PM RN FOR CHALINO.
[2017-02-04 19:36] LABS: HEMOGLOBIN 8.9 g/dL (13.5-17.5)
--- NOTE | 2017-02-04 19:48 | NUR ---
METEOROLOGIST LIAISON: PT IN BED DENIES ANY ABDOMINAL PAIN OR SOB. NO ACTIVE BLEEDING NOTED AT THIS TIME. LATEST H/H AFTER BLOOD TRANSFUSION IS HGB 8.9, PER STANDING ORDER NO TRANSFUSION NEEDED AT THIS TIME. PT AAOX3. ON ROOM AIR. SR ON MONITOR. BP STABLE . PT AGREES TO STAY NPO FOR EGD IN AM. SIGNED CONSENT IN CHART. FC INTACT AND PATENT. L WRIST IV AND ALISIA MIDLINE INTACT AND PATENT. IVF RUNNING PER MD ORDER. BED IN LOWEST POSITION W BED ALARM ON . SIDE RAILS UP X2. CALL LIGHT WITHIN REACH. WILL CONT TO MONITOR FOR ANY CHANGES IN CONDITION THROUGHOUT THE NIGHT.
--- NOTE | 2017-02-04 21:17 | NUR ---
HANGER: DAUGHTER AT BEDSIDE . UPDATED WITH PTS CURRENT CONDITION. PT IS NOT HAVING ANY ACTIVE BLEEEDING AT THIS TIME. VITALS STABLE.
--- NOTE | 2017-02-04 22:06 | NUR ---
SUPERVISOR SINTERING PLANT: PT IS IN DEEP SLEEP . O2 SAT DROPS TO 92% . PLACED PT ON 2L NC. O2 SAT INCREASED TO 96%
[2017-02-05] VITALS (50 sets, daily range): BP systolic 91–146; BP diastolic 46–78
[2017-02-05 04:50] LABS: BASOPHILS % (AUTO) 0.3 % (0.0-2.0); EOSINOPHILS # (AUTO) 0.2 /CMM (0.0-0.7); HEMATOCRIT 27 % (39-51); HEMOGLOBIN 9.1 g/dL (13.5-17.5); LYMPHOCYTES # (AUTO) 2.6 /CMM (0.8-4.8); LYMPHOCYTES % (AUTO) 25.7 % (20.0-44.0); MEAN CORPUSCULAR HEMOGLOBIN 29 PG (26.0-33.0); MEAN CORPUSCULAR HGB CONC 33 g/dl (31.0-36.0); MEAN CORPUSCULAR VOLUME 86 fL (80-96); MONOCYTES # (AUTO) 0.7 /CMM (0.1-1.30); MONOCYTES % (AUTO) 6.6 % (2.0-12.0); NEUTROPHILS # (AUTO) 6.6 /CMM (1.8-8.9); NEUTROPHILS % (AUTO) 65.4 % (43.0-81.0); PLATELET COUNT (AUTO) 496 /CMM (150-450); RDW COEFFICIENT OF VARIATION 16.9 (11.5-15.0); RED BLOOD CELL COUNT(AUTO) 3.15 MIL/uL (4.5-6.0); WHITE BLOOD COUNT (AUTO) 10.1 K/uL (4.3-11.0)
[2017-02-05 05:02] LABS: CALCIUM, SERUM 7.9 mg/dL (8.5-10.1); CREATININE 1.4 mg/dL (0.6-1.3); POTASSIUM 4.9 mmol/L (3.5-5.1)
[2017-02-05 05:16] LABS: MAGNESIUM 1.8 mg/dL (1.8-2.4); PHOSPHORUS 3.8 mg/dL (2.5-4.9)
[2017-02-05] MEDS: IV NS 0.9% 1,000 ML IV PRN ×2 (06:21→18:07)
--- NOTE | 2017-02-05 07:18 | NUR ---
ASSOCIATE SOFTWARE DEVELOPER : NO ACTIVE BLEEDING NOTED. PT KEPT NPO THROUGHOUT THE NIGHT. LINENS CHANGED . ENDORSED CARE TO AM NURSE
--- NOTE | 2017-02-05 07:33 | NUR ---
INITIAL MILK PASTEURIZER NOTE RCVD PT AWAKE AND ALERT SHOWING NO S/O DISTRESS OR C/O PAIN. SATURATION >95% ON 2L VIA NC. LEVI DRAINING YELLOW URINE. IV SITES C/D/I/PATENT. NO S/O INFILTRATION OR PHLEBITIS OBSERVED. WILL CONTINUE TO MONITOR PT FOR SAFETY AND COMFORT. CALL LIGHT WITHIN REACH. BED IN LOW AND LOCKED POSITION. PT AWARE OF PROCEDURE SCHEDULED FOR TODAY AND NPO STATUS.
--- NOTE | 2017-02-05 08:05 | NUR ---
SLEEVE SETTER LOCKSTITCH NOTE PT TAKEN TO OR FOR EGD CONSENTS IN CHART. PT TRANSPORTED VIA BED WITH RN AND TRANSPORT AT BEDSIDE. MONITORING PER PROTOCOL.
--- NOTE | 2017-02-05 09:30 | NUR ---
RECEIVING CLERK NOTE RCVD PT BACK FROM OR VITAL SIGNS STABLE, NO C/O PAIN AT THIS TIME. WILL CONTINUE TO MONITOR. PT'S DAUGHTER AT BEDSIDE.
[2017-02-05] MEDS ORDERED: SUCRALFATE 1 G/10 ML UDC GT ONE (10:30)
[2017-02-05] MEDS: PANTOPRAZOLE 40 MG TABLET.DR PO SCH (10:36)
--- NOTE | 2017-02-05 11:07 | NUR ---
RESTAURANT HOSPITALITY MANAGER NOTE CALLED DR. RICKS TO CLARIFY H/H LAB ORDER. HE STATES TO DRAW ONE NOW AND EVERY [address] RICKS INFORMED OF PT'S BLOODY STOOL EARLIER THIS AM. HE ACKNOWLEDGED INFORMATION.
[2017-02-05 11:22] LABS: HEMOGLOBIN 8.2 g/dL (13.5-17.5)
[2017-02-05] MEDS ORDERED: BLOOD IV SET 1 EA INFUS.SET MC ONE (13:44)
[2017-02-05] MEDS ORDERED: IV NS 0.9% 250 ML IV ONE (13:44)
[2017-02-05] MEDS ORDERED: ANESTHESIA TRAY IN PYXIS 1 EA TRAY MC ONE (16:23)
--- NOTE | 2017-02-05 16:47 | NUR ---
LABEL STITCHER NOTE DR. CHEN'S RESIDENT, THIERRY INFORMED OF PT CONSTANT TACHYCARDIA. SHE ACKNOWLEDGED INFORMATION. PT HAS NO FEVER OR PAIN AT THIS TIME.
--- NOTE | 2017-02-05 17:21 | NUR ---
MAGNETIC RESONANCE IMAGING DIRECTOR NOTE BLOOD TRANSFUSION FINISHED WITHOUT ANY COMPLICATIONS. PT AFEBRILE, VITAL SIGNS STABLE. WILL CONTINUE TO MONITOR.
[2017-02-05] MEDS ORDERED: MORPHINE SULFATE INJ 2 MG/ML DISP.SYRIN IV PRN (17:30)
[2017-02-05] MEDS: SUCRALFATE 1 G/10 ML UDC GT SCH ×2 (17:47→21:42)
--- NOTE | 2017-02-05 18:43 | NUR ---
MMA FIGHTER NOTE PT RESTING IN BED SHOWING NO S/O DISTRESS, TYLENOL GIVEN FOR ABDOMINAL PAIN. ST ON TELE. CONTINUES TO TOLERATE O2 VIA NC. LEVI IN PLACE DRAINING CLEAR, YELLOW URINE. IV SITES C/D/I/PATENT. NO S/O INFILTRATION OR PHLEBITIS OBSERVED. PT'S CARE WILL BE ENDORSED TO DECORATOR CONSULTANT RN AT CHANGE OF SHIFT.
[2017-02-05 19:37] LABS: HEMOGLOBIN 9.3 g/dL (13.5-17.5)
--- NOTE | 2017-02-05 20:00 | NUR ---
DELINQUENT TAX COLLECTOR ASSISTANT:UPON INITIAL ASSESSMENT PT DENIES ANY ABDOMINAL PAIN OR SOB. NO ACTIVE BLEEDING NOTED AT THIS TIME. PT AAOX3. ON 2L VIA NC. SR ON MONITOR. BP STABLE . PT AGREES TO STAY NPO FOR NM SCAN IN AM. SIGNED CONSENT IN CHART. FC INTACT AND PATENT. L WRIST IV AND ALISIA MIDLINE INTACT AND PATENT. IVF RUNNING PER MD ORDER. BED IN LOWEST POSITION W BED ALARM ON . SIDE RAILS UP X2. CALL LIGHT WITHIN REACH. WILL CONT TO MONITOR FOR ANY CHANGES IN CONDITION THROUGHOUT THE NIGHT.
--- NOTE | 2017-02-05 21:39 | NUR ---
MANUFACTURING TECHNOLOGY ANALYST PT C/O ABDOMINAL PAIN . NO BM NOTED. REPOSITIONED FOR COMFORT AND PRN MORPHINE AND ZOFRAN GIVEN FOR NAUSEA . DAUGHTER AT BEDSIDE. WILL CONT TO MONITOR. Addendum: 02/05/17 at 2307 by RAMESH ARANDA RN ABDOMEN SOFT AND NON-DISTENDED. BS ACTIVE.
--- NOTE | 2017-02-05 22:00 | NUR ---
HEAD UP OPERATOR HELPER: PT DENIES ANY MORE PAIN AFTER BEING GIVEN MORPHINE. PT SLEEPING BUT IS EASILY AROUSABLE . DR RICKS CALLED AND WAS UPDATED ON CURRENT STATUS OF PATIENT. NO ACTIVE BLEEDING NOTED AT THIS TIME. LATEST HGB IS 9.3 AND HE STATED NEXT H/H TO BE DONE AT 0500 .
[2017-02-06] VITALS (32 sets, daily range): BP systolic 96–149; BP diastolic 45–89
[2017-02-06] MEDS: IV NS 0.9% 1,000 ML IV PRN ×2 (03:36→17:36)
[2017-02-06 04:31] LABS: BASOPHILS # (AUTO) 0.1 /CMM (0.0-0.2); BASOPHILS % (AUTO) 0.7 % (0.0-2.0); EOSINOPHILS # (AUTO) 0.1 /CMM (0.0-0.7); EOSINOPHILS % (AUTO) 0.7 % (0.0-6.0); HEMATOCRIT 26 % (39-51); HEMOGLOBIN 8.5 g/dL (13.5-17.5); LYMPHOCYTES # (AUTO) 1.9 /CMM (0.8-4.8); LYMPHOCYTES % (AUTO) 12.8 % (20.0-44.0); MEAN CORPUSCULAR HEMOGLOBIN 29 PG (26.0-33.0); MEAN CORPUSCULAR HGB CONC 33 g/dl (31.0-36.0); MEAN CORPUSCULAR VOLUME 86 fL (80-96); MONOCYTES # (AUTO) 0.6 /CMM (0.1-1.30); MONOCYTES % (AUTO) 4.3 % (2.0-12.0); NEUTROPHILS # (AUTO) 12.2 /CMM (1.8-8.9); NEUTROPHILS % (AUTO) 81.5 % (43.0-81.0); PLATELET COUNT (AUTO) 357 /CMM (150-450); RED BLOOD CELL COUNT(AUTO) 2.97 MIL/uL (4.5-6.0)
[2017-02-06 04:47] LABS: CALCIUM, SERUM 7.8 mg/dL (8.5-10.1); CREATININE 1.3 mg/dL (0.6-1.3); MAGNESIUM 1.5 mg/dL (1.8-2.4); PHOSPHORUS 4.5 mg/dL (2.5-4.9); POTASSIUM 4.6 mmol/L (3.5-5.1)
--- NOTE | 2017-02-06 06:51 | NUR ---
SAP PORTAL CONSULTANT: NO ACTIVE BLEEDING NOTED THROUGHOUT THE SHIFT. PT DOC ANY SOB OR DIZZINESS. PT TOLERATED BED BATH WELL AND LINEN CHANGE. ORAL CARE DONE .PT KEPT NPO FOR NM SCAN TODAY. MIDLINE DRESSING CHANGED. BOTH IV'S INTACT AND PATENT. CALL LIGHT WITHIN REACH AND BED ALARM ON.
[2017-02-06] MEDS ORDERED: PANTOPRAZOLE 40 MG TABLET.DR PO SCH (07:30)
[2017-02-06] MEDS: SUCRALFATE 1 G/10 ML UDC GT SCH ×4 (07:43→22:18)
[2017-02-06] MEDS: PANTOPRAZOLE 40 MG TABLET.DR PO SCH (07:43)
--- NOTE | 2017-02-06 07:55 | NUR ---
LAYER OUT PLATE GLASS: pt.is A/Ox2, can follow commands, sleepy, no any pain, SR, SBP over 100, O2sat, WNL, NPO, no acute bleeding over night by report, H/H 8.02/15 morning, plan HIDA to today
--- NOTE | 2017-02-06 08:42 | NUR ---
PAPER COLORER: EVGENY Schneider called/updated with pt.condition, Dx,Hx, H/H, VS, schd HIDA after 1200
--- NOTE | 2017-02-06 09:00 | NUR ---
TAKER DOWN: is in room, updated with pt.current status, no melena episodes over night, H/H, VS, I/O, NPO, plan for HIDA
--- NOTE | 2017-02-06 10:00 | NUR ---
MUFFLER TENDER: pt.family, PA student are in room, notified re pt.VS, orders, HIDA, POC, labs, no bleeding event last 12 hrs, next H/H at 17.00
[2017-02-06] MEDS ORDERED: SECONDARY IV SET 1 EA INFUS.SET MC ONE (11:24)
[2017-02-06] MEDS: Magnesium 1GM/D5W 100ML PREMIX 100 ML IV SCH ×2 (11:37→13:09)
[2017-02-06] MEDS ORDERED: EPINEPHRINE (1:10,000) SYRINGE 1 MG/10 ML DISP.SYRIN ONE (12:55)
--- NOTE | 2017-02-06 16:45 | NUR ---
FISH HATCHERY LABORER: ROSALBA done, pt.is tolerated well, no c/o, VSS
[2017-02-06 17:05] LABS: HEMOGLOBIN 9.3 g/dL (13.5-17.5)
--- NOTE | 2017-02-06 20:00 | NUR ---
HAND MARKER: PT IN BED SLEEPING BUT AWAKENS WHEN NAME IS CALLED. DENIES ANY ABDOMINAL PAIN OR SOB. NO ACTIVE BLEEDING NOTED AT THIS TIME. PT AAOX3. ON 2L VIA NC. SR ON MONITOR. BP STABLE . L WRIST IV AND ALISIA MIDLINE INTACT AND PATENT. IVF RUNNING PER MD ORDER. BED IN LOWEST POSITION W BED ALARM ON . SIDE RAILS UP X2. CALL LIGHT WITHIN REACH. WILL CONT TO MONITOR FOR ANY CHANGES IN CONDITION THROUGHOUT THE NIGHT.
--- NOTE | 2017-02-06 21:00 | NUR ---
FILLER OPERATOR :DR RICKS CALLED. UPDATED ON PTS CURRENT CONDITION . PER AM NURSE REPORT NO ACTIVE BLEEDING NOTED TODAY. LATEST H/H 9.3 AND 28 . MILLICENT GAVE ORDER TO CONTINUE MONITORING H/H EVERY 12 HOURS.
[2017-02-07] VITALS (23 sets, daily range): BP systolic 106–137; BP diastolic 50–69
[2017-02-07 04:44] LABS: BASOPHILS % (AUTO) 0.3 % (0.0-2.0); EOSINOPHILS # (AUTO) 0.2 /CMM (0.0-0.7); EOSINOPHILS % (AUTO) 2.3 % (0.0-6.0); HEMATOCRIT 27 % (39-51); HEMOGLOBIN 8.7 g/dL (13.5-17.5); LYMPHOCYTES # (AUTO) 1.5 /CMM (0.8-4.8); LYMPHOCYTES % (AUTO) 15.9 % (20.0-44.0); MEAN CORPUSCULAR HEMOGLOBIN 29 PG (26.0-33.0); MEAN CORPUSCULAR HGB CONC 33 g/dl (31.0-36.0); MEAN CORPUSCULAR VOLUME 87 fL (80-96); MONOCYTES # (AUTO) 0.4 /CMM (0.1-1.30); MONOCYTES % (AUTO) 4.2 % (2.0-12.0); NEUTROPHILS # (AUTO) 7.1 /CMM (1.8-8.9); NEUTROPHILS % (AUTO) 77.3 % (43.0-81.0); PLATELET COUNT (AUTO) 415 /CMM (150-450); RDW COEFFICIENT OF VARIATION 17.1 (11.5-15.0); RED BLOOD CELL COUNT(AUTO) 3.05 MIL/uL (4.5-6.0); WHITE BLOOD COUNT (AUTO) 9.2 K/uL (4.3-11.0)
[2017-02-07 05:05] LABS: CALCIUM, SERUM 8.2 mg/dL (8.5-10.1); CREATININE 1.2 mg/dL (0.6-1.3); MAGNESIUM 1.8 mg/dL (1.8-2.4); PHOSPHORUS 3.6 mg/dL (2.5-4.9); POTASSIUM 4.2 mmol/L (3.5-5.1)
--- NOTE | 2017-02-07 06:57 | NUR ---
NUTRITION AIDE: AM CARE GIVEN AND TOLERATED WELL. NO ACTIVE BLEEDING NOTED.
[2017-02-07] MEDS: PANTOPRAZOLE 40 MG TABLET.DR PO SCH (07:29)
[2017-02-07] MEDS: SUCRALFATE 1 G/10 ML UDC GT SCH ×4 (07:29→21:14)
--- NOTE | 2017-02-07 07:41 | NUR ---
DIRECTOR TRADE: pt.is A/Ox2, no any pain now, SR, BP WNL, O2 sat. over 92% on 2L O2 n/c, H/H 8.04/18, still NPO, no acute bleeding over night by report, was updated over night
--- NOTE | 2017-02-07 08:20 | NUR ---
UNDERWRITING INTERNSHIP: NIRANJAN Babcock reevaluated pt., see note, continue same skin care, pt.is able to change position by himself, skin management care plan initiated
--- NOTE | 2017-02-07 08:32 | NUR ---
WOUND CARE CONSULT PATIENT SEEN AND SKIN INTEGRITY ASSESSMENT DONE. PATIENT PRESENTS WITH SCATTERED BRUISING TO THE UPPER AND LOWER EXTREMITIES AND MILD EXCORIATIONS TO THE GREGORIO RECTAL BUTTOCKS THAT ARE NOTED TO BE IN HEALING STAGES. CONTINUE USE OF Z GUARD AND CONTINUE ALL PREVENTION MEASURES AND SKIN MANAGEMENT PER CURRENT PLAN OF CARE. ALL DISCUSSED WITH NURSING AT THE BEDSIDE. PATIENT CURRENTLY INDEPENDENT WITH BED MOBILITY AT THIS TIME WITH STEPHANE AT 17. PATIENT ON ISOGEL PRESSURE REDISTRIBUTION MATTRESS AT THIS TIME. Addendum: 02/07/17 at 0836 by ALEJANDRA BLACK WNDNU Amended: Links added.
--- NOTE | 2017-02-07 09:00 | NUR ---
STEAM TUNNEL FEEDER: is in room, updated with pt.current condition, VS, I/O, NPO, H/H, HIDA result, IVF, POC
--- NOTE | 2017-02-07 09:30 | NUR ---
PLANT CHANGER: pt.daughter is in room, notified for pt.POC, VS, orders, H/H
--- NOTE | 2017-02-07 11:45 | NUR ---
PEDIATRIC HOSPITALIST: is in room, notified re pt.current VS, status, labs, H/H, NPO, I/O, orders, meds, no acute bleeding events last 24 hrs
[2017-02-07] MEDS: IV NS 0.9% 1,000 ML IV PRN ×2 (11:55→21:22)
--- NOTE | 2017-02-07 14:12 | NUR ---
MOTOR VEHICLE SALESPERSON: O2 sat 96-100% on 1L nc, continue r/a, no any pain, HIDA done yesterday: no ducts obstruction, no bleeding events over 36 hrs, still NPO status, next H/H at 17.00, after that will page for POC clarification. PM/skin care done, excoriations healing is in progress.
--- NOTE | 2017-02-07 15:20 | NUR ---
PARTY DEMONSTRATOR: sent message for , continue NPO/start diet? Charge nurse spoke with , got transfer order to Tele
--- NOTE | 2017-02-07 16:33 | NUR ---
METAL OFF BEARER: is in room, updated with pt.current condition, VS, H/H, no bleeding events, labs, HIDA, IVF, I/O, NPO status, said: start full liquid diet
--- NOTE | 2017-02-07 17:00 | NUR ---
SEWING MACHINE ATTACHMENT TESTER: full report was given for ADILSON Samuels Tele
[2017-02-07 17:10] LABS: HEMOGLOBIN 9.1 g/dL (13.5-17.5)
--- NOTE | 2017-02-07 17:13 | NUR ---
GAS DISTRIBUTION AND EMERGENCY CLERK NOTES RECEIVED REPORT ON PATIENT
--- NOTE | 2017-02-07 17:25 | NUR ---
SLASHER NOTES RECEIVED PATIENT A/XO4 DENIES PAIN, SOB, DIFFICULTY BREATHING. ROOM AIR STABLE. TELE BEING APPLIED. FAMILY AT BEDSIDE. CALL LIGHT IN REACH, BED LOWERED AND LOCKED, RAILS UPX3 FOR SAFETY AND WILL ROUND NEEDED. NEEDS MET
--- NOTE | 2017-02-07 18:35 | NUR ---
CORK SLABS SAWYER CLOSING PATIENT STABLE. TOLERATED FULL LIQUID DIET NO N/V GI ISSUES. WILL ADVANCE PER MD RICKS FOR AM. PATIENT STATES NO NEEDS. FAMILY AT BEDSIDE. CALL LIGHT IN REACH, BED LOWERED AND LOCKED, RAILS UPX3 FOR SAFETY WILL ENDORSE TO RN FOR CHALINO.
--- NOTE | 2017-02-07 19:30 | NUR ---
TOY PAINTER OPENING NOTES: PATIENT IN BED, AOX4, UKRAINIAN SPEAKING, ON ROOM AIR, BREATHING EVEN AND UNLABORED. BREATH SOUNDS CLEAR TO AUSCULTATION. APPEARS CALM AND IN NO DISTRESS. DENIES PAIN AT THIS TIME. FAMILY AT BEDSIDE. PATIENT HAS PIV OVER L WRIST G22 INFUSING WELL WITH NS RUNNING AT 100 ML/HR. LEVI CATHETER IN PLACE DRAINING CLEAR YELLOW URINE. PROVIDED FOR COMFORT AND SAFETY. TURNED AND REPOSITIONED. BED IN LOWEST AND LOCKED POSITION, SIDERAILS UP X 3, BED ALARMS ON. WILL CONT TO MONITOR.
[2017-02-08] VITALS: BP 147/76
[2017-02-08 04:00] VITALS: BP 153/69
--- NOTE | 2017-02-08 06:48 | NUR ---
GMAT INSTRUCTOR CLOSING NOTES: PATIENT IN BED, AOX4, KHMER SPEAKING. ON ROOM AIR, BREATHING EVEN AND UNLABORED. APPEARS CALM AND IN NO DISTRESS, WAS ABLE TO SLEEP THROUGH NIGHT. ON TELE MONITORING WITH NSR AT RATE OF 90S. PIV OVER ALISIA MIDLINE INTACT AND INFUSING WELL WITH NS RUNNING AT 100 ML/HR. PIV OVER L WRIST INTACT AND PATENT TO FLUSH. LEVI CATHETER IN PLACE, ABLE TO DRAIN TOTAL OF 1800 CC THROUGH SHIFT. MORNING CARE RENDERED. DUE MEDS GIVEN. PROVIDED FOR COMFORT AND SAFETY. BED IN LOWEST AND LOCKED POSITION, SIDERAILS UP X3. NO ACUTE CHANGE IN CONDITION NOTED THROUGH SHIFT. WILL ENDORSE TO AM RN FOR CHALINO.
[2017-02-08] MEDS: IV NS 0.9% 1,000 ML IV PRN (06:55)
[2017-02-08 07:03] VITALS: BP 137/71
[2017-02-08 07:04] LABS: BASOPHILS % (AUTO) 0.2 % (0.0-2.0); EOSINOPHILS # (AUTO) 0.1 /CMM (0.0-0.7); HEMATOCRIT 25 % (39-51); HEMOGLOBIN 8.3 g/dL (13.5-17.5); LYMPHOCYTES # (AUTO) 1.4 /CMM (0.8-4.8); LYMPHOCYTES % (AUTO) 13.6 % (20.0-44.0); MEAN CORPUSCULAR HEMOGLOBIN 29 PG (26.0-33.0); MEAN CORPUSCULAR HGB CONC 33 g/dl (31.0-36.0); MEAN CORPUSCULAR VOLUME 88 fL (80-96); MONOCYTES # (AUTO) 0.6 /CMM (0.1-1.30); MONOCYTES % (AUTO) 5.6 % (2.0-12.0); NEUTROPHILS # (AUTO) 8.4 /CMM (1.8-8.9); NEUTROPHILS % (AUTO) 79.6 % (43.0-81.0); PLATELET COUNT (AUTO) 400 /CMM (150-450); RDW COEFFICIENT OF VARIATION 16.5 (11.5-15.0); RED BLOOD CELL COUNT(AUTO) 2.87 MIL/uL (4.5-6.0); WHITE BLOOD COUNT (AUTO) 10.6 K/uL (4.3-11.0)
[2017-02-08] MEDS: SUCRALFATE 1 G/10 ML UDC GT SCH ×3 (07:07→17:15)
[2017-02-08 07:20] LABS: CALCIUM, SERUM 8.1 mg/dL (8.5-10.1); CREATININE 1.2 mg/dL (0.6-1.3); POTASSIUM 3.9 mmol/L (3.5-5.1)
--- NOTE | 2017-02-08 07:30 | NUR ---
PERSONNEL SECURITY ASSISTANT AM NOTES: PATIENT IN BED, AOX4, TAJIK SPEAKING, ON ROOM AIR, BREATHING EVEN AND UNLABORED ON RA. BREATH SOUNDS CLEAR TO AUSCULTATION. DENIES PAIN AT THIS TIME. L WRIST G22 WITH NS RUNNING AT 100 ML/HR, ALISIA MIDLINE CDI DRESSING, BOTH SITES CLEAR. LEVI CATHETER IN PLACE DRAINING CLEAR YELLOW URINE. ON SOFT DIET. SEE NURSING FLOWSHEET FOR SKIN ISSUES. BED IN LOWEST AND LOCKED POSITION, SIDERAILS UP X 3, BED ALARMS ON. CALL LIGHT WITHIN REACH. WILL CONT TO MONITOR.
[2017-02-08 08:00] VITALS: BP 141/61
[2017-02-08 08:17] LABS: MAGNESIUM 1.2 mg/dL (1.8-2.4)
[2017-02-08] MEDS: PANTOPRAZOLE 40 MG TABLET.DR PO SCH (08:34)
--- NOTE | 2017-02-08 09:30 | NUR ---
MS RN NOTES DC TELE PER DR. LEMUS. ADMINISTERED DUE MEDS.
[2017-02-08] MEDS ORDERED: SUCR1ORA6 GT (10:30)
[2017-02-08] MEDS ORDERED: SECONDARY IV SET 1 EA INFUS.SET MC ONE (10:41)
--- NOTE | 2017-02-08 10:48 | NUR ---
MS RN NOTES STARTED MAGNESIUM BAG #1
[2017-02-08] MEDS: Magnesium 1GM/D5W 100ML PREMIX 100 ML IV SCH ×4 (10:49→14:16)
--- NOTE | 2017-02-08 12:04 | NUR ---
MS RN NOTES STARTED MAGNESIUM BAG #2
--- NOTE | 2017-02-08 13:13 | NUR ---
MS RN NOTES STARTED MAGNESIUM BAG #3
--- NOTE | 2017-02-08 14:16 | NUR ---
MS RN NOTES STARTED MAGNESIUM BAG #4 - FINAL BAG.
[2017-02-08 16:00] VITALS: BP 139/72
[2017-02-08 17:49] LABS: HEMOGLOBIN 8.8 g/dL (13.5-17.5)
[2017-02-08 18:00] VITALS: BP 139/72
--- NOTE | 2017-02-08 19:29 | NUR ---
MS DISCHARGE NOTES PATIENT DISCHARGED TO HOME TODAY PER MD IN STABLE CONDITION. DC INSTRUCTIONS GIVEN AND EXPLAINED TO PT'S DAUGHTER VERBALIZED UNDERSTANDING. ALL PAPER WORKS SIGNED AND COMPLETED. ALL BELONGINGS SENT. HL TO LEFT WRIST REMOVED CATH TIP COMPLETE, RT UPPER ARM MIDLINE REMOVED, CATH TIP COMPLETE. NO BLEEDING TO BOTH SITES. DRESSING IN PLACE. ASSISTED BY DAUGHTER AND DASH CHANG VIA WHEELCHAIR TO LOBBY TO BE TRANSPORTED TO HOME VIA PRIVATE CAR BY DAUGHTER. VSS. BP 132/80 TEMP 98.0
== END 2017-02-08 19:30 | disposition home or self-care (01) | DRG 241 ==
LOC: MED 08:32 → ICU 02-04 03:18 → TELE 02-07 17:15 → MED 02-08 08:57
PROVIDERS: ADMIT Internal Medicine; ATTEND Internal Medicine
PROC: 30233K1 Transfusion of Nonautologous Frozen Plasma into Peripheral Vein, Percutaneous Approach (ICD-10-PCS; 2017-02-04)
PROC: 30233N1 Transfusion of Nonautologous Red Blood Cells into Peripheral Vein, Percutaneous Approach (ICD-10-PCS; 2017-02-04)
PROC: 05H533Z Insertion of Infusion Device into Right Subclavian Vein, Percutaneous Approach (ICD-10-PCS; 2017-02-04)
PROC: 3E0G8GC Introduction of Other Therapeutic Substance into Upper GI, Via Natural or Artificial Opening Endoscopic (ICD-10-PCS; principal; 2017-02-05 08:22)
PROC: 0W3P8ZZ Control Bleeding in Gastrointestinal Tract, Via Natural or Artificial Opening Endoscopic (ICD-10-PCS; principal; 2017-02-05 08:22)
DX: K27.4 Chronic or unspecified peptic ulcer, site unspecified, with hemorrhage (principal); N17.0 Acute kidney failure with tubular necrosis; E87.2 Acidosis; D62 Acute posthemorrhagic anemia; I12.9 Hypertensive chronic kidney disease with stage 1 through stage 4 chronic kidney disease, or unspecified chronic kidney disease; E78.5 Hyperlipidemia, unspecified; K21.9 Gastro-esophageal reflux disease without esophagitis; N18.9 Chronic kidney disease, unspecified; F03.90 Unspecified dementia, unspecified severity, without behavioral disturbance, psychotic disturbance, mood disturbance, and anxiety; K57.90 Diverticulosis of intestine, part unspecified, without perforation or abscess without bleeding; F32.9 Major depressive disorder, single episode, unspecified; D75.89 Other specified diseases of blood and blood-forming organs; D72.829 Elevated white blood cell count, unspecified; D47.3 Essential (hemorrhagic) thrombocythemia; E87.1 Hypo-osmolality and hyponatremia
CPT/HCPCS: 36415; 36569; 71010-TC; 76705-TC; 78226; 80048-TC; 80053-TC; 80061-TC; 81000-TC; 82150-TC; 82553-TC; 82746; 82962-TC; 83540-TC; 83690-TC; 83735-TC; 84100-TC; 84134-TC; 84443-TC; 84484-TC; 85025-TC; 85027-TC; 85652-TC; 85730-TC; 86850-TC; 86921-TC; 87040-TC; 87081-TC; 87086-TC; A4606; A9537; J0171; J2270; J2405; J2704; J3475; J3490; J7030; J7050; P9016-BL; P9017-BL; Z7610

== ENCOUNTER 2017-02-08 20:41 | Inpatient (IN) | payer OTHER ==
[~2017-02-08] VITALS: Ht 162.6 cm; Wt 65.8 kg
[~2017-02-08 20:41] MED LIST changes: +SUCR1ORA6 GT
--- NOTE | 2017-02-08 20:41 | NUR ---
TO BED 1 BIB PARAMEDICS C/O GENERALIZED WEAKNESS. PER EMS REPORT FAMILY STATED THE PT WAS DISCHARGED FROM THE HOSPITAL AT 1930 BUT WHEN THEY GOT HOME PT BECAME WEAK AND WAS ASSISTED TO THE GROUND. NO KO PER EMS REPORT. RECEIVED. PT AAOX4 NO ACUTE DISTRESS NOTED, RESP EVEN AND UNLABORED. PT STATES "I'M JUST REALLY TIRED" IN [place] LANGUAGE. PLACE PT ON CARDIAC MONITORING, CONTINUOUS POX, O2@2L/NC. PENDING ER MD RIBERA.
[2017-02-08 21:25] LABS: BASOPHILS # (AUTO) 0.1 /CMM (0.0-0.2); BASOPHILS % (AUTO) 0.4 % (0.0-2.0); EOSINOPHILS # (AUTO) 0.1 /CMM (0.0-0.7); EOSINOPHILS % (AUTO) 0.5 % (0.0-6.0); HEMATOCRIT 30 % (39-51); LYMPHOCYTES # (AUTO) 2.4 /CMM (0.8-4.8); LYMPHOCYTES % (AUTO) 15.4 % (20.0-44.0); MEAN CORPUSCULAR HEMOGLOBIN 29 PG (26.0-33.0); MEAN CORPUSCULAR HGB CONC 34 g/dl (31.0-36.0); MEAN CORPUSCULAR VOLUME 87 fL (80-96); MONOCYTES # (AUTO) 0.9 /CMM (0.1-1.30); MONOCYTES % (AUTO) 5.7 % (2.0-12.0); NEUTROPHILS # (AUTO) 12.2 /CMM (1.8-8.9); PLATELET COUNT (AUTO) 415 /CMM (150-450); RDW COEFFICIENT OF VARIATION 16.2 (11.5-15.0); RED BLOOD CELL COUNT(AUTO) 3.41 MIL/uL (4.5-6.0); WHITE BLOOD COUNT (AUTO) 15.7 K/uL (4.3-11.0)
[2017-02-08] MEDS ORDERED: PANTOPRAZOLE 40 MG VIAL IV ONE (21:30)
[2017-02-08] MEDS ORDERED: ONDANSETRON HCL/PF 4 MG/2 ML VIAL IVP ONE (21:30)
[2017-02-08] MEDS ORDERED: IV NS 0.9% 1,000 ML BAG IV ONE (21:30)
[2017-02-08 21:34] LABS: CALCIUM, SERUM 8.5 mg/dL (8.5-10.1); CARBON DIOXIDE 20 mmol/L (21-32); CHLORIDE 104 mmol/L (98-107); CREATININE 1.3 mg/dL (0.6-1.3); GLUCOSE 137 mg/dL (74-106); POTASSIUM 3.3 mmol/L (3.5-5.1); SODIUM SERUM 136 mmol/L (136-145); UREA NITROGEN, BLOOD 14 mg/dL (7-18)
[2017-02-08 21:37] LABS: INR 0.94 (0.87-1.13); PROTHROMBIN TIME 9.8 SECS (9.5-12.7)
[2017-02-08 21:39] LABS: ALANINE AMINOTRANSFERASE 25 U/L (12-78); ALBUMIN 2.6 g/dL (3.4-5.0); ALKALINE PHOSPHATASE 87 U/L (46-116); ASPARTATE AMINOTRANSFERASE 26 U/L (15-37); BILIRUBIN,DIRECT 0.2 mg/dL (0.0-0.2); BILIRUBIN,TOTAL 0.9 mg/dL (0.2-1.0); TOTAL PROTEIN, SERUM 6.2 g/dL (6.4-8.2)
[2017-02-08 21:41] LABS: TROPONIN I < 0.017 ng/mL (0.00-0.056)
[2017-02-08] MEDS ORDERED: IV NS 0.9% 1,000 ML ONE (21:43)
[2017-02-08] MEDS ORDERED: IV SET PRIMARY 1 EA INFUS.SET MC ONE (21:43)
[2017-02-08] MEDS ORDERED: PANTOPRAZOLE 40 MG VIAL ONE (21:43)
[2017-02-08] MEDS ORDERED: ONDANSETRON HCL/PF 4 MG/2 ML VIAL ONE (21:43)
--- NOTE | 2017-02-08 21:52 | NUR ---
CALLED NURSING SUP. FOR TELE BED
--- NOTE | 2017-02-08 22:16 | NUR ---
[facility], AUTOMATION AND CONTROLS SUPERVISOR
--- NOTE | 2017-02-08 22:31 | NUR ---
[facility] REPAGED
--- NOTE | 2017-02-08 22:39 | NUR ---
BLADIMIR LINDQUIST TALKING TO DR. GUTIERREZ REGARDING PT ADMISSION.
[2017-02-08] MEDS ORDERED: IV NS 0.9% 250 ML IV ONE (23:00)
[2017-02-08] MEDS ORDERED: IOHEXOL-350 100 ML VIAL IV ONE (23:00)
--- NOTE | 2017-02-08 23:08 | NUR ---
PT TRANSPORTED TO RADIOLOGY FOR CT PULMONARY ANGIOGRAM.
[2017-02-08] MEDS ORDERED: POTASSIUM CHLORIDE 20 MEQ TAB.PRT.SR PO ONE ×2 (23:30→23:47)
--- NOTE | 2017-02-08 23:33 | NUR ---
REPORT CALLED TO PHARMACY TECHNICIAN PROGRAM DIRECTOR JV. PENDING HOSPITAL ADMISSION.
--- NOTE | 2017-02-08 23:35 | NUR ---
PT BACK FROM RADIOLOGY. PENDING CTHEAD AND CT PULMONARY ANGIOGRAM RESULT.
[2017-02-09] VITALS (10 sets, daily range): BP systolic 108–139; BP diastolic 56–77
[2017-02-09] MEDS ORDERED: IV NS 0.9% 1,000 ML IV PRN (00:51)
[2017-02-09] MEDS ORDERED: MAGNESIUM HYDROXIDE 30 ML UDC PO PRN (01:00)
[2017-02-09] MEDS ORDERED: Z GUARD REMEDY 2 OZ OINT TP PRN (01:00)
[2017-02-09] MEDS ORDERED: ACETAMINOPHEN 325 MG TABLET PO PRN (01:00)
[2017-02-09] MEDS ORDERED: FUROSEMIDE 20 MG TABLET PO PRN (01:00)
[2017-02-09] MEDS ORDERED: HYDROCODONE/APAP 10/325MG 1 EA TABLET PO PRN (01:00)
[2017-02-09] MEDS ORDERED: HYDROCODONE/APAP 5/325MG 1 EACH TABLET PO PRN (01:00)
[2017-02-09] MEDS ORDERED: ONDANSETRON HCL/PF 4 MG/2 ML VIAL IVP PRN (01:00)
[2017-02-09] MEDS ORDERED: ZOLPIDEM TARTRATE 5 MG TABLET PO PRN (01:00)
[2017-02-09] MEDS: PANTOPRAZOLE 40 MG TABLET.DR PO SCH ×2 (01:00→09:04)
[2017-02-09] MEDS ORDERED: MAG HYDROX/AL HYDROX/SIMETH 30 ML UDC PO PRN (01:00)
--- NOTE | 2017-02-09 01:45 | NUR ---
MS RN NOTES RECEIVED PT FROM THE ER, IN STABLE CONDITION. NO ACUTE DISTRESS. NO SOB NOTED. A/O X 2, IRISH SPEAKING. DAUGHTER AT BEDSIDE. IV SITE ON LAC G 3 18 INTACT AND PATENT, NO S/S OF INFILTRATION NOTED. DENIES ANY PAIN OR DISCOMFORT AT THIS TIME. BODY CHECK DONE. ALL NEEDS ATTENDED. KEPT COMFORTABLE. CALL LIGHT WITHIN REACH. WILL CONTINUE TO MONITOR.
[2017-02-09] MEDS ORDERED: IV NS 0.9% 1,000 ML ONE (02:49)
[2017-02-09] MEDS ORDERED: IV SET PRIMARY PUMP SET 1 EA INFUS.SET MC ONE (02:49)
--- NOTE | 2017-02-09 02:50 | NUR ---
PROTONIX TAB 40 MG FOR 010 NOT GIVEN PT JUST HAD PROTONIX 40 MG IVP IN THE ER, PT HAS A PROTONIX ORDER TO BE GIVEN AT 0730, CHARGE NURSE CHARISMA SUAREZ.
--- NOTE | 2017-02-09 06:46 | NUR ---
MS RN NOTES PT IN BED, IN STABLE CONDITION. NO ACUTE DISTRESS. NO SOB NOTED. ON O2 @ 2LPM, JAZMINE WELL. A/O X 2, MALAY SPEAKING. IV SITE ON LAC G # 18 INTACT AND PATENT, NO S/S OF INFILTRATION NOTED. DENIES ANY PAIN OR DISCOMFORT AT THIS TIME. ALL NEEDS ATTENDED. KEPT COMFORTABLE. CALL LIGHT WITHIN REACH. WILL ENDORSE TO NEXT SHIFT FOR CHALINO.
[2017-02-09] MEDS ORDERED: PANTOPRAZOLE 40 MG TABLET.DR PO SCH (07:30)
--- NOTE | 2017-02-09 07:50 | NUR ---
MS/RN OPENING NOTE PT. IS LYING IN BED A&OX4. NO S/S OF DISTRESS, NO SOB, BREATHING ON OXYGEN WITH NASAL CANNULA 2L/MIN. PT. HAS A LEFT ANTECUBITAL IV WITH IV FLUIDS RUNNING AT 75ML/HR. PT. C/O RIGHT ANKLE PAIN. ORTHOSTATIC BP TAKEN. PER MD HOLD MEDICATIONS, LASIX, AND AMLODIPINE. BED IS IN LOW POSITION, 2 SIDE RAILS UP, CALL LIGHT WITHIN REACH, AND ALL NEEDS ATTENDED TO.
[2017-02-09 07:57] LABS: BASOPHILS % (AUTO) 0.1 % (0.0-2.0); HEMATOCRIT 25 % (39-51); LYMPHOCYTES # (AUTO) 1.2 /CMM (0.8-4.8); LYMPHOCYTES % (AUTO) 9.6 % (20.0-44.0); MEAN CORPUSCULAR HEMOGLOBIN 29 PG (26.0-33.0); MEAN CORPUSCULAR HGB CONC 33 g/dl (31.0-36.0); MEAN CORPUSCULAR VOLUME 88 fL (80-96); MONOCYTES # (AUTO) 0.7 /CMM (0.1-1.30); MONOCYTES % (AUTO) 5.4 % (2.0-12.0); NEUTROPHILS # (AUTO) 10.8 /CMM (1.8-8.9); NEUTROPHILS % (AUTO) 84.9 % (43.0-81.0); PLATELET COUNT (AUTO) 366 /CMM (150-450); RDW COEFFICIENT OF VARIATION 17.1 (11.5-15.0); RED BLOOD CELL COUNT(AUTO) 2.78 MIL/uL (4.5-6.0); WHITE BLOOD COUNT (AUTO) 12.7 K/uL (4.3-11.0)
[2017-02-09] MEDS: Magnesium 1GM/D5W 100ML PREMIX 100 ML IV SCH ×3 (08:30→09:30)
[2017-02-09] MEDS ORDERED: SECONDARY IV SET 1 EA INFUS.SET MC ONE (08:56)
[2017-02-09] MEDS ORDERED: AMLODIPINE BESYLATE 10 MG TABLET PO SCH (09:00)
[2017-02-09] MEDS: ALLOPURINOL 100 MG TABLET PO SCH ×2 (09:03→17:09)
[2017-02-09] MEDS: POTASSIUM CHLORIDE 20 MEQ TAB.PRT.SR PO SCH ×3 (09:03→12:30)
[2017-02-09] MEDS: IV NS 0.9% 1,000 ML IV PRN ×2 (09:05→21:42)
[2017-02-09 10:06] LABS: MAGNESIUM 1.9 mg/dL (1.8-2.4); PHOSPHORUS 4.4 mg/dL (2.5-4.9)
[2017-02-09] MEDS: ENALAPRIL MALEATE (10 MG) 10 MG TABLET PO SCH (11:09)
[2017-02-09] MEDS: SUCRALFATE 1 G/10 ML UDC GT SCH ×2 (12:00→17:40)
--- NOTE | 2017-02-09 19:30 | NUR ---
RN NOTES RECEIVED PT AWAKE ON BED, A/OX3 LIBERIAN SPEAKING, SR ON TELE MONITOR HR-88, DENIES PAIN, NO SOB, CALL LIGHT WITHIN REACH, SIDERAILS UPX2 CONTINUE TO MONITOR
--- NOTE | 2017-02-09 19:30 | NUR ---
MS/RN CLOSING NOTES PT.'S DAUGHTER NEAR BEDSIDE. PT. IS LYING IN BED A&OX4. NO S/S OF DISTRESS, NO SOB, PT. IS BREATHING ON OXYGEN 2L/MIN WITH NASAL CANNULA. IV FLUIDS RUNNING AT 125ML/HR ON THE LEFT ANTECUBITAL IV ACCESS SITE. URINAL NEAR BEDSIDE. BED IS IN LOW POSITION, 2 SIDE RAILS UP, CALL LIGHT WITHIN REACH, AND ALL NEEDS ATTENDED TO. WILL ENDORSE REPORT TO GROUP CAPTAIN NURSE.
[2017-02-09] MEDS: SUCRALFATE 1 G/10 ML UDC PO SCH (21:40)
[2017-02-10] VITALS (8 sets, daily range): BP systolic 82–146; BP diastolic 62–96
[2017-02-10] MEDS: IV NS 0.9% 1,000 ML IV PRN (06:16)
--- NOTE | 2017-02-10 06:28 | NUR ---
RN NOTES AWAKE,MORNING CARE RENDERED, DENIES PAIN,NO SOB, CALL LIGHT WITHIN REACH, SIDERAILS UPX2 PT. NEEDS ATTENDED. ENDORSED TO DAYSHIFT NURSE FOR CONTINUITY OF CARE
[2017-02-10 07:17] LABS: BASOPHILS % (AUTO) 0.2 % (0.0-2.0); EOSINOPHILS # (AUTO) 0.2 /CMM (0.0-0.7); EOSINOPHILS % (AUTO) 1.7 % (0.0-6.0); HEMATOCRIT 23 % (39-51); HEMOGLOBIN 7.8 g/dL (13.5-17.5); LYMPHOCYTES # (AUTO) 1.2 /CMM (0.8-4.8); LYMPHOCYTES % (AUTO) 13.5 % (20.0-44.0); MEAN CORPUSCULAR HEMOGLOBIN 30 PG (26.0-33.0); MEAN CORPUSCULAR HGB CONC 33 g/dl (31.0-36.0); MEAN CORPUSCULAR VOLUME 89 fL (80-96); MONOCYTES # (AUTO) 0.6 /CMM (0.1-1.30); MONOCYTES % (AUTO) 6.8 % (2.0-12.0); NEUTROPHILS # (AUTO) 7.1 /CMM (1.8-8.9); NEUTROPHILS % (AUTO) 77.8 % (43.0-81.0); PLATELET COUNT (AUTO) 347 /CMM (150-450); RDW COEFFICIENT OF VARIATION 17.1 (11.5-15.0); RED BLOOD CELL COUNT(AUTO) 2.63 MIL/uL (4.5-6.0); WHITE BLOOD COUNT (AUTO) 9.2 K/uL (4.3-11.0)
[2017-02-10 07:28] LABS: BILIRUBIN,TOTAL 0.4 mg/dL (0.2-1.0); CALCIUM, SERUM 7.8 mg/dL (8.5-10.1); CREATININE 1.2 mg/dL (0.6-1.3); MAGNESIUM 1.6 mg/dL (1.8-2.4); PHOSPHORUS 3.4 mg/dL (2.5-4.9); POTASSIUM 4.3 mmol/L (3.5-5.1); TOTAL PROTEIN, SERUM 5.2 g/dL (6.4-8.2)
--- NOTE | 2017-02-10 07:45 | NUR ---
MS/RN OPENING NOTE PT. IS LYING IN BED AWAKE, A&OX4. NO SOB, BREATHING ON OXYGEN WITH NASAL CANNULA AT 2L/MIN. NO S/S OF DISTRESS, NO C/O PAIN. IV FLUIDS WERE DISCONTINUED PER MD ORDER, AND TELEMETRY MONITORING PER MD. 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 WALKER NEAR BEDSIDE, PER MD PT. CAN AMBULATE WITH ASSIST. BED IS IN LOW POSITION, 2 SIDE RAILS UP, CALL LIGHT WITHIN REACH, AND ALL NEEDS ATTENDED TO. WILL CONTINUE TO ASSESS AND MONITOR PT.
[2017-02-10] MEDS: ALLOPURINOL 100 MG TABLET PO SCH ×2 (08:20→17:16)
[2017-02-10] MEDS: SUCRALFATE 1 G/10 ML UDC PO SCH ×4 (08:20→22:23)
[2017-02-10] MEDS: PANTOPRAZOLE 40 MG TABLET.DR PO SCH (08:20)
[2017-02-10] MEDS: ENALAPRIL MALEATE (10 MG) 10 MG TABLET PO SCH (09:03)
[2017-02-10] MEDS: Magnesium 1GM/D5W 100ML PREMIX 100 ML IV SCH ×2 (11:38→13:23)
--- NOTE | 2017-02-10 20:00 | NUR ---
MS RN OPENING NOTES: RECEIVED PATIENT IN BED, AWAKE, WITH FAMILY AT BEDSIDE. PATIENT IS ALERT AND ORIENTED X4, ITALIAN SPEAKER., WITH IV ON LEFT AC G#[id number]. NOTED WITH REDNESS ON SITE.- DISLODGED. NO FURTHER COMPLAINS OF PAIN OR DISCOMFORT THIS TIME OF ASSESSMENT. PLACED CALL LIGHT WITHIN PATIENT'S REACH. WILL CONTINUE TO MONITOR PATIENT.
--- NOTE | 2017-02-10 20:00 | NUR ---
MS/RN CLOSING NOTE PT. IS LYING IN BED AWAKE, A&OX4. NO SOB, BREATHING ON OXYGEN WITH NASAL CANNULA AT 2L/MIN. NO S/S OF DISTRESS, NO C/O PAIN. PT. HAS A LEFT ANTECUBITAL IV SITE. MAGNESIUM WAS REPLACED TODAY. PT. HAS MORNING LABS ORDERED TOMORROW. BED IS IN LOW POSITION, 2 SIDE RAILS UP, CALL LIGHT WITHIN REACH, AND ALL NEEDS ATTENDED TO. WILL CONTINUE TO ASSESS AND MONITOR PT. WILL ENDORSE REPORT TO [employer] DEVELOPER NURSE.
[2017-02-10] MEDS ORDERED: FUROSEMIDE 20 MG/2 ML VIAL IV PRN (21:30)
[2017-02-10] MEDS ORDERED: IV NS 0.9% 250 ML IV ONE (22:26)
--- NOTE | 2017-02-10 22:45 | NUR ---
MS RN: PATIENT IS WITH ORDERS FOR BLOOD TRANSFUSION WITH DR. CHEN. TO TRANSFUSE 2 UNITS ORDERED. OBTAINED CONSENT FROM DAUGHTER EVAN OVER THE PHONE. NEW SITE FOR HEPLOCK OBTAINED ON THE LEFT WRIST AREA. FLUSHING AND INFUSING WELL.
--- NOTE | 2017-02-10 23:50 | NUR ---
MS RN: \ VITAL SIGNS CHECKED AND RECORDED. BLOOD TRANSFUSION WITH BLOOD TYPE O POSITIVE STARTED ON THE LEFT WRIST AREA. BLOOD COMPONENT CHECKED WITH ADILSON WEBB. WILL CHECK VITAL SIGNS AND WILL CHECK FOR ANY BLOOD TRANSFUSION REACTIONS.
[2017-02-11] VITALS (20 sets, daily range): BP systolic 93–143; BP diastolic 43–92
--- NOTE | 2017-02-11 00:05 | NUR ---
MS RN: NO SIGNS OF BLOOD TRANSFUSION REACTION NOTED. VITAL SIGNS CHECKED AND RECORDED.
--- NOTE | 2017-02-11 00:20 | NUR ---
MS RN: NO SIGNS OF BLOOD TRANSFUSION REACTION NOTED. VITAL SIGNS CEHCKED AND RECORDED.
--- NOTE | 2017-02-11 00:50 | NUR ---
MS RN: NO SIGNS OF ANY BLOOD TRANSFUSION REACTION NOTED. VITAL SIGNS CHECKED AND RECORDED. WILL CONTINUE TO MONITOR.
[2017-02-11] MEDS: PANTOPRAZOLE 40 MG TABLET.DR PO SCH (06:32)
[2017-02-11] MEDS: SUCRALFATE 1 G/10 ML UDC PO SCH ×4 (06:33→21:08)
--- NOTE | 2017-02-11 06:56 | NUR ---
MS RN CLOSING NOTES: 2 UNITS OF PRBC TRANSFUSED ORDERED. NO REACTION NOTED DURING TRANSFUSION. VITAL SIGNS CHECKED AND RECORDED POST TRANSFUSION. WILL AWAIT FOR LAB RESULTS. SALINE INFUSION CONTINUED TO KEEP VEIN OPEN. IV SITE REMAINS INTACT NO SIGNS OF REDNESS, PHLEBITIS OR INFECTION. WILL ENDORSE TO DAY SHIFT NURSE.
--- NOTE | 2017-02-11 07:30 | NUR ---
MS/RN Patient received Patient received from retail shift supervisor. A/OX3, Fijian speaking only. Bed in low setting, brakes locked, side rails X3 in upright position. Call light within reach, will continue to monitor and ensure safety.
[2017-02-11] MEDS: ALLOPURINOL 100 MG TABLET PO SCH ×2 (08:54→18:07)
[2017-02-11] MEDS: ENALAPRIL MALEATE (10 MG) 10 MG TABLET PO SCH (08:54)
--- NOTE | 2017-02-11 09:00 | NUR ---
MS/RN Medications Morning medications administered as ordered, no problems swallowing.
[2017-02-11 09:27] LABS: BASOPHILS % (AUTO) 0.2 % (0.0-2.0); HEMATOCRIT 32 % (39-51); HEMOGLOBIN 10.6 g/dL (13.5-17.5); LYMPHOCYTES # (AUTO) 1.7 /CMM (0.8-4.8); LYMPHOCYTES % (AUTO) 14.6 % (20.0-44.0); MEAN CORPUSCULAR HEMOGLOBIN 29 PG (26.0-33.0); MEAN CORPUSCULAR HGB CONC 33 g/dl (31.0-36.0); MEAN CORPUSCULAR VOLUME 88 fL (80-96); MONOCYTES # (AUTO) 0.6 /CMM (0.1-1.30); MONOCYTES % (AUTO) 4.9 % (2.0-12.0); NEUTROPHILS # (AUTO) 9.3 /CMM (1.8-8.9); NEUTROPHILS % (AUTO) 80.3 % (43.0-81.0); PLATELET COUNT (AUTO) 428 /CMM (150-450); RDW COEFFICIENT OF VARIATION 16.6 (11.5-15.0); RED BLOOD CELL COUNT(AUTO) 3.66 MIL/uL (4.5-6.0); WHITE BLOOD COUNT (AUTO) 11.5 K/uL (4.3-11.0)
[2017-02-11 09:48] LABS: ALBUMIN 2.2 g/dL (3.4-5.0); BILIRUBIN,TOTAL 1.1 mg/dL (0.2-1.0); CALCIUM, SERUM 8.4 mg/dL (8.5-10.1); CREATININE 1.1 mg/dL (0.6-1.3); MAGNESIUM 1.8 mg/dL (1.8-2.4); PHOSPHORUS 4.1 mg/dL (2.5-4.9); POTASSIUM 4.7 mmol/L (3.5-5.1); TOTAL PROTEIN, SERUM 5.9 g/dL (6.4-8.2)
--- NOTE | 2017-02-11 10:00 | NUR ---
MS/RN S/B Dr Reynoso Seen by Dr Reynoso - encourage ambulation, may discharge from cardiology standpoint.
--- NOTE | 2017-02-11 11:00 | NUR ---
MS/RN S/B Dr Sky Continue with current plan of care. Encourage fluids and ambulation after physical therapy evaluation. Discharge planing for tomorrow to home. Daughter at bedside and aware but hesitant to take patient home due to weakness.
--- NOTE | 2017-02-11 12:49 | NUR ---
MS/RN S/B Dr Moreno Seen by Dr Moreno - no new orders.
--- NOTE | 2017-02-11 15:00 | NUR ---
ms rn patient sleeping, daughter at bedside,no distress noted.
--- NOTE | 2017-02-11 18:44 | NUR ---
ms rn on bed,all needs attended. for d/c plan in am, daughter is aware.
--- NOTE | 2017-02-11 19:30 | NUR ---
MS/RN Patient received from day shift. A/OX3, Albanian speaking only. Bed in low setting, brakes locked, side rails X3 in upright position. Call light within reach, will continue to monitor and ensure safety.
[2017-02-12] MEDS: SUCRALFATE 1 G/10 ML UDC PO SCH ×4 (06:39→21:12)
[2017-02-12] MEDS: PANTOPRAZOLE 40 MG TABLET.DR PO SCH (06:39)
[2017-02-12 07:14] LABS: BASOPHILS % (AUTO) 0.2 % (0.0-2.0); HEMATOCRIT 31 % (39-51); HEMOGLOBIN 10.5 g/dL (13.5-17.5); LYMPHOCYTES # (AUTO) 1.8 /CMM (0.8-4.8); LYMPHOCYTES % (AUTO) 19.3 % (20.0-44.0); MEAN CORPUSCULAR HEMOGLOBIN 29 PG (26.0-33.0); MEAN CORPUSCULAR HGB CONC 34 g/dl (31.0-36.0); MEAN CORPUSCULAR VOLUME 87 fL (80-96); MONOCYTES # (AUTO) 0.5 /CMM (0.1-1.30); MONOCYTES % (AUTO) 4.9 % (2.0-12.0); NEUTROPHILS # (AUTO) 6.9 /CMM (1.8-8.9); NEUTROPHILS % (AUTO) 75.6 % (43.0-81.0); PLATELET COUNT (AUTO) 475 /CMM (150-450); RDW COEFFICIENT OF VARIATION 16.8 (11.5-15.0); RED BLOOD CELL COUNT(AUTO) 3.57 MIL/uL (4.5-6.0); WHITE BLOOD COUNT (AUTO) 9.1 K/uL (4.3-11.0)
[2017-02-12 07:21] LABS: CALCIUM, SERUM 8.4 mg/dL (8.5-10.1); CREATININE 1.3 mg/dL (0.6-1.3); MAGNESIUM 1.4 mg/dL (1.8-2.4); PHOSPHORUS 3.7 mg/dL (2.5-4.9); POTASSIUM 4.6 mmol/L (3.5-5.1)
--- NOTE | 2017-02-12 07:30 | NUR ---
received pt. in am alert and orientedx4,tamazight speaking.no complaints offered.
[2017-02-12 08:00] VITALS: BP 139/68
[2017-02-12] MEDS: ALLOPURINOL 100 MG TABLET PO SCH ×2 (08:56→17:32)
[2017-02-12] MEDS: ENALAPRIL MALEATE (10 MG) 10 MG TABLET PO SCH (08:56)
[2017-02-12] MEDS: Magnesium 1GM/D5W 100ML PREMIX 100 ML IV SCH ×2 (09:03→10:52)
--- NOTE | 2017-02-12 10:40 | NUR ---
ms rn notes Dr. Rinaldi came seen and examined the patient and ordered Stat PT eval.. All orders carried out and noted. Will continue to monitor accordingly.
--- NOTE | 2017-02-12 14:30 | NUR ---
mg. replacement done.
[2017-02-12 16:00] VITALS: BP 145/86
--- NOTE | 2017-02-12 18:30 | NUR ---
no chg. in status,family in to visit all day.
--- NOTE | 2017-02-12 19:55 | NUR ---
RECEIVED PATIENT IN BED, ALERT AND ORIENTED X4, CITIZEN OF [place] SPEAKING, NO SOB, NO DISTRESS, DENIES ANY PAIN AT THIS TIME, ABLE TO USE URINAL, NEEDS ASSISTANCE TO AMBULATE TO THE TOILET. DAUGHTER AT THE BEDSIDE, KEPT SAFE AND COMFORTABLE, CALL LIGHT WITHIN REACH.
[2017-02-12 20:00] VITALS: BP 141/69
[2017-02-12 22:00] VITALS: BP 141/69
--- NOTE | 2017-02-13 06:37 | NUR ---
PATIENT IN BED, ALERT AND AWAKE, NO SOB, NO RESPIRATORY DISTRESS, DENIES ANY PAIN AT THIS TIME, NO ADVERSE CHANGE OF CONDITION DURING SHIFT, SLEPT FOR 7 HOURS. NEEDS ATTENDED, CALL LIGHT WITHIN REACH.
[2017-02-13 08:00] VITALS: BP 154/88
--- NOTE | 2017-02-13 08:00 | NUR ---
MS RN NOTES RECEIVED REPORT WITH PATIENT IN BED. PATIENT IS RESTING COMFORTABLY IN BED. PATIENT IS A/OX3. IV PATENT AND INTACT. NO SOB OR S/S OF DISTRESS. DENIES PAIN. BED IN LOW LOCKED POSITION. CALL LIGHT WITHIN REACH. WILL CONTINUE TO MONITOR THROUGHOUT SHIFT.
[2017-02-13 08:15] LABS: BASOPHILS % (AUTO) 0.4 % (0.0-2.0); EOSINOPHILS # (AUTO) 0.1 /CMM (0.0-0.7); EOSINOPHILS % (AUTO) 0.8 % (0.0-6.0); HEMATOCRIT 34 % (39-51); HEMOGLOBIN 11.2 g/dL (13.5-17.5); LYMPHOCYTES # (AUTO) 2.1 /CMM (0.8-4.8); LYMPHOCYTES % (AUTO) 25.5 % (20.0-44.0); MEAN CORPUSCULAR HEMOGLOBIN 29 PG (26.0-33.0); MEAN CORPUSCULAR HGB CONC 33 g/dl (31.0-36.0); MEAN CORPUSCULAR VOLUME 88 fL (80-96); MONOCYTES # (AUTO) 0.5 /CMM (0.1-1.30); MONOCYTES % (AUTO) 6.8 % (2.0-12.0); NEUTROPHILS # (AUTO) 5.4 /CMM (1.8-8.9); NEUTROPHILS % (AUTO) 66.5 % (43.0-81.0); PLATELET COUNT (AUTO) 518 /CMM (150-450); RDW COEFFICIENT OF VARIATION 16.6 (11.5-15.0); RED BLOOD CELL COUNT(AUTO) 3.89 MIL/uL (4.5-6.0); WHITE BLOOD COUNT (AUTO) 8.1 K/uL (4.3-11.0)
[2017-02-13 08:26] LABS: CALCIUM, SERUM 8.8 mg/dL (8.5-10.1); CREATININE 1.3 mg/dL (0.6-1.3); MAGNESIUM 1.8 mg/dL (1.8-2.4); PHOSPHORUS 3.6 mg/dL (2.5-4.9); POTASSIUM 4.1 mmol/L (3.5-5.1)
[2017-02-13] MEDS: PANTOPRAZOLE 40 MG TABLET.DR PO SCH (09:11)
[2017-02-13] MEDS: ALLOPURINOL 100 MG TABLET PO SCH (09:11)
[2017-02-13] MEDS: SUCRALFATE 1 G/10 ML UDC PO SCH ×2 (09:11→13:11)
[2017-02-13 09:12] VITALS: BP 152/88
[2017-02-13] MEDS: ENALAPRIL MALEATE (10 MG) 10 MG TABLET PO SCH (09:12)
--- NOTE | 2017-02-13 09:30 | NUR ---
MS DE ANDA NOTES PATIENT DISCHARGED TO [facility]. CALLED [facility] AND GAVE REPORT TO ADILSON ADAMS IN [place]. PATIENT TRANSFERRED TO [facility] WITH AMBULANCE BY EMT'S. DISCHARGE INSTRUCTIONS, SUMMARY WAS GIVEN TO EMT. BELONGINGS HAVE BEEN ACCOUNTED FOR. PATIENT'S DAUGHTER, JESSEE, CAME TO PERSONALLY ARTIFICIAL GLASS EYE MAKER HER BELONGINGS. AWARE OF ALL ABNORMAL LABS. PATIENT'S MIDLINE HAS BEEN REMOVED. ALL PATIENT NEEDS HAVE BEEN MET. PATIENT DISCHARGED IN STABLE CONDITION. Addendum: 02/13/17 at 1643 by KYLEE GOULD RN ERROR. WRONG CHARTING. DISREGARD. NOT APPLICABLE TO THIS PATIENT.
[2017-02-13 09:32] VITALS: BP 152/88
--- NOTE | 2017-02-13 12:30 | NUR ---
MS RN NOTES DISCHARGE ORDERS RECEIVED FOR PATIENT TO BE DISCHARGED HOME WITH HOME HEALTH. EDUCATION PROVIDED TO PATIENT'S DAUGHTER, MARIELENA. INFORMED DAUGHTER ABOUT THE IMPORTANCE OF FOLLOWING UP WITH THE PATIENT'S PCP AND THE PATIENT'S GI SPECIALIST. DAUGHTER VERBALIZED UNDERSTANDING. PHOTOS HAVE BEEN TAKEN OF PATIENT'S R HAND, L HAND, R LEG, AND L LEG. NO CHANGES FROM ADMISSION. SLIGHT BLEEDING WITH SMALL AMOUNT OF REDNESS NOTED ON PATIENT'S DIAPER. MD MADE AWARE. LABS FOR H&H ORDERED. WAITING FOR RESULTS.
[2017-02-13 14:42] LABS: HEMOGLOBIN 11.2 g/dL (13.5-17.5)
--- NOTE | 2017-02-13 16:00 | NUR ---
MS RN NOTES H&H RESULTS RECEIVED. LABS WERE UNCHANGED. OK BY DR. OLVERA TO DISCHARGE PATIENT. MD AWARE OF ALL ABNORMAL LABS. INFORMATION PROVIDED TO PATIENT'S DAUGHTER REGARDING FOLLOWING UP WITH PATIENT'S PCP AND PATIENT'S GI SPECIALIST. PATIENT'S DAUGHTER VERBALIZED UNDERSTANDING. IV HAS BEEN REMOVED. ID BANDS REMOVED. ALL PATIENT NEEDS HAVE BEEN MET. ESCORTED WITH WHEELCHAIR DOWNSTAIRS.
== END 2017-02-13 16:00 | disposition home health service (06) | DRG 241 ==
LOC: ER 20:44 → TELE 02-09 01:38 → MED 02-10 09:24
PROVIDERS: ADMIT Internal Medicine; ATTEND Nurse Practitioner Acute Care
PROC: 30233N1 Transfusion of Nonautologous Red Blood Cells into Peripheral Vein, Percutaneous Approach (ICD-10-PCS; principal; 2017-02-10)
DX: K27.4 Chronic or unspecified peptic ulcer, site unspecified, with hemorrhage (principal); N17.0 Acute kidney failure with tubular necrosis; E87.2 Acidosis; G90.8 Other disorders of autonomic nervous system; D62 Acute posthemorrhagic anemia; E87.1 Hypo-osmolality and hyponatremia; E83.42 Hypomagnesemia; F03.90 Unspecified dementia, unspecified severity, without behavioral disturbance, psychotic disturbance, mood disturbance, and anxiety; D75.89 Other specified diseases of blood and blood-forming organs; E86.9 Volume depletion, unspecified; I10 Essential (primary) hypertension; E87.6 Hypokalemia; E78.5 Hyperlipidemia, unspecified; K21.9 Gastro-esophageal reflux disease without esophagitis; D72.829 Elevated white blood cell count, unspecified; K57.90 Diverticulosis of intestine, part unspecified, without perforation or abscess without bleeding; F32.9 Major depressive disorder, single episode, unspecified; D63.8 Anemia in other chronic diseases classified elsewhere
CPT/HCPCS: 36415; 70450-TC; 80048-TC; 80053-TC; 80061-TC; 80076-TC; 83735-TC; 84100-TC; 84484-TC; 85025-TC; 85027-TC; 85730-TC; 86850-TC; 86921-TC; 87040-TC; 87081-TC; 93970-TC; 97001-TC; A4606; C9113; J1940; J2405; J3475; J7030; J7050; P9016-BL; Q9967; Z7610

== ENCOUNTER 2017-12-14 01:58 | Inpatient (IN) | payer OTHER ==
[~2017-12-14] VITALS: Ht 162.6 cm; Wt 69.4 kg
[~2017-12-14 01:58] MED LIST changes: -AMLO10TA2 PO; +AMLO10TA6 PO
[2017-12-14] MEDS ORDERED: ONDANSETRON HCL/PF 4 MG/2 ML VIAL ONE (02:07)
[2017-12-14] MEDS ORDERED: MORPHINE SULFATE INJ 4 MG/ML DISP.SYRIN ONE (02:07)
--- NOTE | 2017-12-14 02:10 | NUR ---
TO BED 10 AN 87 YO MALE PATIENT BIBRA 88 FROM HOME C/O RIGHT FLANK PAIN X 3 DAYS. PATIENT IS ALERT AND RESPONSIVE. VSS. NAD NOTED. SKIN WARM AND DRY. COMFORT MEASURES RENDERED. PLACED ON TELE MONITOR.
--- NOTE | 2017-12-14 02:20 | NUR ---
STARTED A SALINE LOCK ON THE RAJENDRA G18, BLOOD DRAWN AND SENT TO LAB.
--- NOTE | 2017-12-14 02:23 | NUR ---
MEDICATED PATIENT ORDERED BY DR ANNA.
[2017-12-14] MEDS ORDERED: MORPHINE SULFATE INJ 2 MG/ML DISP.SYRIN IV ONE (02:30)
[2017-12-14] MEDS ORDERED: ONDANSETRON HCL/PF 4 MG/2 ML VIAL IVP ONE (02:30)
[2017-12-14] MEDS ORDERED: IV NS 0.9% 500 ML BAG IV ONE (02:30)
[2017-12-14 02:33] LABS: BASOPHILS % (AUTO) 0.4 % (0.0-2.0); EOSINOPHILS % (AUTO) 5.3 % (0.0-6.0); HEMATOCRIT 39 % (39-51); HEMOGLOBIN 12.9 g/dL (13.5-17.5); LYMPHOCYTES # (AUTO) 1.8 /CMM (0.8-4.8); LYMPHOCYTES % (AUTO) 20.4 % (20.0-44.0); MEAN CORPUSCULAR HGB CONC 33 g/dl (31.0-36.0); MEAN CORPUSCULAR VOLUME 95 fL (80-96); MONOCYTES # (AUTO) 0.6 /CMM (0.1-1.30); MONOCYTES % (AUTO) 6.9 % (2.0-12.0); PLATELET COUNT (AUTO) 313 /CMM (150-450); RDW COEFFICIENT OF VARIATION 15.9 (11.5-15.0); RED BLOOD CELL COUNT(AUTO) 4.08 MIL/uL (4.5-6.0)
[2017-12-14 02:38] LABS: INR 0.94 (0.87-1.13)
--- NOTE | 2017-12-14 02:40 | NUR ---
patient to ct.
[2017-12-14 02:44] LABS: TROPONIN I < 0.017 ng/mL (0.00-0.056)
[2017-12-14 02:47] LABS: CARBON DIOXIDE 22 mmol/L (21-32); CHLORIDE 88 mmol/L (98-107); POTASSIUM 4.2 mmol/L (3.5-5.1); SODIUM SERUM 122 mmol/L (136-145)
[2017-12-14 02:50] LABS: ALANINE AMINOTRANSFERASE 22 U/L (12-78); ALBUMIN 3.1 g/dL (3.4-5.0); ALKALINE PHOSPHATASE 112 U/L (46-116); ASPARTATE AMINOTRANSFERASE 18 U/L (15-37); BILIRUBIN,DIRECT 0.2 mg/dL (0.0-0.2); BILIRUBIN,TOTAL 0.8 mg/dL (0.2-1.0); CALCIUM, SERUM 8.6 mg/dL (8.5-10.1); CREATININE 1.1 mg/dL (0.6-1.3); GLUCOSE 104 mg/dL (74-106); LIPASE 110 U/L (73-393); TOTAL PROTEIN, SERUM 6.5 g/dL (6.4-8.2); UREA NITROGEN, BLOOD 21 mg/dL (7-18)
[2017-12-14 03:37] LABS: APPEARANCE,URINE CLEAR (CLEAR); BILIRUBIN,URINE NEGATIVE (NEGATIVE); BLOOD, URINE TRACE-INTA Ery/uL (NEGATIVE); COLOR,URINE YELLOW (YELLOW); KETONES,URINE NEGATIVE (NEGATIVE); LEUKOCYTE ESTERASE ,URINE NEGATIVE (NEGATIVE); NITRITE, URINE NEGATIVE (NEGATIVE); PH,URINE 7.5 (5.0-8.0); PROTEIN,URINE 1+ mg/dl (NEGATIVE); UGLUCOSE NEGATIVE (NEGATIVE); UROBILINOGEN,URINE 0.2 EU/dL (0.2)
[2017-12-14 04:09] LABS: BACTERIA,URINE None seen /HPF (None Seen); SQUAMOUS EPITHELIAL CELL,UR Few /HPF (None Seen); WBC,URINE 0-2 /HPF (0-3)
--- NOTE | 2017-12-14 05:15 | NUR ---
REPORT GIVEN TO LUIS DE ANDA FOR MS ADMISSION AND CHALINO.
[2017-12-14] MEDS ORDERED: CLOP75TA15 PO (05:27)
[2017-12-14] MEDS ORDERED: LISI10TA5 PO (05:27)
[2017-12-14] MEDS ORDERED: CARV12.5 PO (05:27)
[2017-12-14] MEDS ORDERED: HYDR-552 PO (05:27)
[2017-12-14] MEDS ORDERED: MAGN400T6 PO (05:27)
[2017-12-14] MEDS ORDERED: ATOR20TA PO (05:27)
[2017-12-14] MEDS ORDERED: NITR0.4T48 SL (05:27)
[2017-12-14] MEDS ORDERED: MAG HYDROX/AL HYDROX/SIMETH 30 ML UDC PO PRN (05:30)
[2017-12-14] MEDS ORDERED: ZOLPIDEM TARTRATE 5 MG TABLET PO PRN (05:30)
[2017-12-14] MEDS ORDERED: ONDANSETRON HCL/PF 4 MG/2 ML VIAL IVP PRN (05:30)
[2017-12-14 05:45] VITALS: BP 161/91
--- NOTE | 2017-12-14 05:45 | NUR ---
TRANSFERRED PATIENT TO MS BED, NO INCIDENT NOTED.
--- NOTE | 2017-12-14 05:46 | NUR ---
RN ADMITTING NOTES RECEIVED REPORT FROM ANESTHESIOLOGIST ATTENDING ANNIE. Pt ARRIVED TO FLOOR VIA GURNEY. WAS ABLE TO AMBULATE FROM GURNEY TO BED WITH STANDBY ASSISTANCE, UNSTEADY GAIT DUE TO PAIN. NO S/S OF ACUTE DISTRESS OR SOB NOTED. DAUGHTER AT BEDSIDE. Pt IS A/OX3, BELARUSIAN SPEAKING, BUT IS VERBAL AND ABLE TO MAKE NEEDS KNOWN. IV ACCESS ON RAJENDRA #18G, SL. SAFETY MEASURES IN PLACE. BED LOW LOCKED, HOB ELEVATED, SIDE RAILS UP, CALL LIGHT AND BEDSIDE TABLE WITHIN REACH. WILL CONTINUE TO MONITOR Pt FOR THE REST OF THE NIGHT FOR SAFETY.
[2017-12-14] MEDS: MORPHINE SULFATE INJ 2 MG/ML DISP.SYRIN IV PRN (06:22)
--- NOTE | 2017-12-14 06:50 | NUR ---
RN CLOSING NOTES NO SIGNIFICANT CHANGES IN Pt's CONDITION. Pt REMAINS IN STABLE CONDITION AT THIS TIME. NO S/S OF ACUTE DISTRESS OR SOB NOTED DURING THE NIGHT. ALL NEEDS MET AND ATTENDED TO. SAFETY MEASURES IN PLACE. WILL ENDORSE TO DAYSHIFT RN FOR Pt's CHALINO.
[2017-12-14 08:00] VITALS: BP 163/90
[2017-12-14] MEDS ORDERED: PANTOPRAZOLE 40 MG TABLET.DR PO SCH (09:00)
[2017-12-14] MEDS ORDERED: IV NS 0.9% 1,000 ML IV PRN (12:30)
[2017-12-14] MEDS ORDERED: LISINOPRIL (10MG) 10 MG TABLET PO SCH (12:30)
--- NOTE | 2017-12-14 13:00 | NUR ---
FAMILY AT BEDSIDE MOST OF DAY.
[2017-12-14 13:18] LABS: OSMOLALITY,URINE 393 mOS/kg (340-1090)
[2017-12-14 13:32] LABS: URINE SODIUM, RANDOM 113 mmol/l (40-220)
[2017-12-14] MEDS: CARVEDILOL 12.5 MG TABLET PO SCH ×2 (13:33→21:13)
--- NOTE | 2017-12-14 13:43 | NUR ---
NS IV STARTED DUE TO LOW SODIUM.
[2017-12-14 16:00] VITALS: BP 106/62
--- NOTE | 2017-12-14 18:00 | NUR ---
RN ASKED COMMERCIAL LEASING AGENT FOR BLOOD THINNER WILL FOLLOW UP.
--- NOTE | 2017-12-14 19:45 | NUR ---
RN OPENING NOTES RECEIVED REPORT FROM RAMÓNOKFRANCIS TAYLOR. FOUND Pt AWAKE RESTING IN BED. NO S/S OF ACUTE DISTRESS OR SOB NOTED. DAUGHTER VISITING AT BEDSIDE. IV ACCESS ON RAJENDRA #18G. SAFETY MEASURES IN PLACE. BED LOW, LOCKED, HOB ELEVATED, SIDE RAILS UP, CALL LIGHT AND BEDSIDE TABLE WITHIN REACH. WILL CONTINUE TO MONITOR Pt THROUGHOUT THE NIGHT FOR SAFETY.
[2017-12-14 20:00] VITALS: BP 159/92
[2017-12-14] MEDS ORDERED: IV Sodium Chloride 3% 500 ML 500 ML IV ONE ×2 (20:00→21:06)
[2017-12-14] MEDS ORDERED: NITROGLYCERIN 0.4 MG/TAB BOTTLE SL PRN (20:30)
[2017-12-14 21:43] LABS: CALCIUM, SERUM 7.9 mg/dL (8.5-10.1); CARBON DIOXIDE 22 mmol/L (21-32); CHLORIDE 89 mmol/L (98-107); CREATININE 1.1 mg/dL (0.6-1.3); GLUCOSE 120 mg/dL (74-106); POTASSIUM 4.1 mmol/L (3.5-5.1); UREA NITROGEN, BLOOD 19 mg/dL (7-18)
[2017-12-14 21:56] LABS: SODIUM SERUM 120 mmol/L (136-145)
[2017-12-14] MEDS: ATORVASTATIN 10 MG TABLET PO SCH (22:06)
[2017-12-14] MEDS: HYDROCODONE/APAP 10/325MG 1 EA TABLET PO PRN (22:07)
--- NOTE | 2017-12-14 22:30 | NUR ---
RN NOTES NEW IV ACCESS STARTED ON RFA #22G.
[2017-12-15 03:44] LABS: CARBON DIOXIDE 24 mmol/L (21-32); CHLORIDE 91 mmol/L (98-107); CREATININE 1.1 mg/dL (0.6-1.3); GLUCOSE 92 mg/dL (74-106); POTASSIUM 4.4 mmol/L (3.5-5.1); SODIUM SERUM 122 mmol/L (136-145); UREA NITROGEN, BLOOD 19 mg/dL (7-18)
--- NOTE | 2017-12-15 06:36 | NUR ---
RN CLOSING NOTES NO OTHER SIGNIFICANT CHANGES IN Pt's CONDITION. NO S/S OF ACUTE DISTRESS OR SOB NOTED DURING THE NIGHT. NA LEVELS ARE TRENDING UP; NA 122 FROM 0300 BMP LAB DRAW. 0500 BMP LAB DRAW IS IN PROCESS. ALL NEEDS MET AND ATTENDED TO. SAFETY MEASURES IN PLACE. BED LOW, LOCKED, HOB ELEVATED, SIDE RAILS UP, CALL LIGHT AND BEDSIDE TABLE WITHIN REACH. WILL ENDORSE TO DAYSHIFT RN FOR Pt's CHALINO.
[2017-12-15 07:17] LABS: BASOPHILS % (AUTO) 0.2 % (0.0-2.0); EOSINOPHILS % (AUTO) 4.3 % (0.0-6.0); HEMATOCRIT 35 % (39-51); LYMPHOCYTES # (AUTO) 1.7 /CMM (0.8-4.8); LYMPHOCYTES % (AUTO) 20.5 % (20.0-44.0); MEAN CORPUSCULAR HGB CONC 34 g/dl (31.0-36.0); MEAN CORPUSCULAR VOLUME 95 fL (80-96); MONOCYTES # (AUTO) 0.6 /CMM (0.1-1.30); MONOCYTES % (AUTO) 7.1 % (2.0-12.0); NEUTROPHILS # (AUTO) 5.7 /CMM (1.8-8.9); NEUTROPHILS % (AUTO) 67.9 % (43.0-81.0); PLATELET COUNT (AUTO) 306 /CMM (150-450); RDW COEFFICIENT OF VARIATION 15.8 (11.5-15.0); RED BLOOD CELL COUNT(AUTO) 3.69 MIL/uL (4.5-6.0); WHITE BLOOD COUNT (AUTO) 8.4 K/uL (4.3-11.0)
--- NOTE | 2017-12-15 07:30 | NUR ---
MS RN NOTES. PT AWAKE AND RESTING, PT A&0X3, TURKISH SPEAKING BUT HARD TO UNDERSTAND. PT TOLERATING ROOM AIR AND DENIES SOB. PT REPORTING MODERATE BACK PAIN AND REQUESTING PRN ANALGESIA. PT WITH IVC AT R FA INTACT AND OPERATIONAL. PT REFUSING SCD PLACEMENT. PT BED IN LOWEST LOCKED POSITION WITH HANDRAILSX2 AND CALL BUSTILLOS WITHIN REACH. PT BRIEFED ON TODAY'S POC AND IS WITHOUT CONCERN OR COMPLAINT AT THIS TIME.
--- NOTE | 2017-12-15 07:30 | NUR ---
RN NOTES. SODIUM CHECK PER MD - 125. REMAINS WITHIN LIMIT.
[2017-12-15 07:35] LABS: CALCIUM, SERUM 8.1 mg/dL (8.5-10.1); CARBON DIOXIDE 22 mmol/L (21-32); CHLORIDE 93 mmol/L (98-107); CREATININE 1.1 mg/dL (0.6-1.3); GLUCOSE 87 mg/dL (74-106); MAGNESIUM 1.5 mg/dL (1.8-2.4); PHOSPHORUS 3.6 mg/dL (2.5-4.9); POTASSIUM 4.3 mmol/L (3.5-5.1); SODIUM SERUM 125 mmol/L (136-145); UREA NITROGEN, BLOOD 17 mg/dL (7-18)
[2017-12-15 07:36] LABS: CHOLESTEROL 104 mg/dL (<200); HDL CHOLESTEROL 42 mg/dL (40-60); LDL 55 mg/dL (0-99); THYROID STIMULATING HORMONE 4.192 uIU/mL (0.358-3.74); TRIGLYCERIDES 69 mg/dL (30-150)
[2017-12-15 07:42] LABS: OSMOLALITY,SERUM 249 mOS/kg (278-305)
[2017-12-15 08:00] VITALS: BP 145/73
[2017-12-15] MEDS: HYDROCODONE/APAP 10/325MG 1 EA TABLET PO PRN ×3 (08:23→22:28)
[2017-12-15] MEDS: CLOPIDOGREL BISULFATE 75 MG TABLET PO SCH (08:23)
[2017-12-15] MEDS: ALLOPURINOL 100 MG TABLET PO SCH ×2 (08:24→17:32)
[2017-12-15] MEDS: PANTOPRAZOLE 40 MG TABLET.DR PO SCH (08:24)
[2017-12-15] MEDS: MAGNESIUM OXIDE 400 MG TABLET PO SCH ×2 (08:24→17:32)
[2017-12-15] MEDS: CARVEDILOL 12.5 MG TABLET PO SCH ×3 (08:24→17:45)
[2017-12-15] MEDS: LISINOPRIL (10MG) 10 MG TABLET PO SCH (08:24)
--- NOTE | 2017-12-15 08:30 | NUR ---
RN NOTES. CRIT WOLFA/ SER OSMORALITY 249L REPORTED TO PRUDENCE LEÓN. NO ORDERS PLACED.
[2017-12-15 09:22] LABS: CALCIUM, SERUM 8.1 mg/dL (8.5-10.1); CARBON DIOXIDE 21 mmol/L (21-32); CHLORIDE 94 mmol/L (98-107); CREATININE 1.1 mg/dL (0.6-1.3); GLUCOSE 136 mg/dL (74-106); POTASSIUM 3.9 mmol/L (3.5-5.1); SODIUM SERUM 126 mmol/L (136-145); UREA NITROGEN, BLOOD 18 mg/dL (7-18)
[2017-12-15] MEDS: Magnesium 1GM/D5W 100ML PREMIX 100 ML IV SCH ×3 (15:16→17:45)
[2017-12-15 15:17] LABS: CALCIUM, SERUM 8.1 mg/dL (8.5-10.1); CARBON DIOXIDE 22 mmol/L (21-32); CHLORIDE 95 mmol/L (98-107); CREATININE 1.1 mg/dL (0.6-1.3); GLUCOSE 136 mg/dL (74-106); SODIUM SERUM 126 mmol/L (136-145); UREA NITROGEN, BLOOD 18 mg/dL (7-18)
[2017-12-15 16:00] VITALS: BP 117/74
--- NOTE | 2017-12-15 19:02 | NUR ---
MS RN CLOSING NOTES. PT REMAINS A&0X3, AWAKE AND RESTING. PT WITH FAMILY AT BEDSIDE. PT TOLERATING ROOM AIR AND DENIES SOB. PT REPORTING R AND L LATERAL ABDO AND BACK PAIN. PT WITH IVC AT R FA INTACT AND OPERATIONAL. PT REMAINS REFUSING SCD PLACEMENT. PT BED IN LOWEST LOCKED POSITION WITH HANDRAILSX2 AND CALL BUSTILLOS WITHIN REACH. ALL DAY NURSE DUTIES ATTENDED TO AND PT IS WITHOUT CONCERN OR COMPLAINT AT THIS TIME. WILL ENDORSE TO NIGHT NURSE AT BEDSIDE FOR CHALINO.
--- NOTE | 2017-12-15 19:45 | NUR ---
RN OPENING NOTES RECEIVED REPORT FROM YAMILETH BUSTILLOS. FOUND Pt AWAKE RESTING IN BED. NO S/S OF ACUTE DISTRESS OR SOB NOTED. Pt IS A/OX3, KYRGY[place] SPEAKING ONLY. SON VISITING AT BEDSIDE. IV ACCESS ON RFA #22G. SAFETY MEASURES IN PLACE. BED LOW, LOCKED, HOB ELEVATED, SIDE RAILS UP, CALL LIGHT AND BEDSIDE TABLE WITHIN REACH. WILL CONTINUE TO MONITOR Pt THROUGHOUT THE NIGHT FOR SAFETY.
[2017-12-15 20:00] VITALS: BP 121/70
[2017-12-15 21:12] LABS: CARBON DIOXIDE 24 mmol/L (21-32); CHLORIDE 93 mmol/L (98-107); CREATININE 1.1 mg/dL (0.6-1.3); GLUCOSE 124 mg/dL (74-106); POTASSIUM 4.4 mmol/L (3.5-5.1); SODIUM SERUM 124 mmol/L (136-145); UREA NITROGEN, BLOOD 18 mg/dL (7-18)
[2017-12-15] MEDS: ATORVASTATIN 10 MG TABLET PO SCH (22:26)
--- NOTE | 2017-12-16 06:40 | NUR ---
RN CLOSING NOTES NO SIGNIFICANT CHANGES IN Pt's CONDITION. NO S/S OF ACUTE DISTRESS OR SOB NOTED DURING THE NIGHT. ALL NEEDS MET AND ATTENDED TO. SAFETY MEASURES IN PLACE. BED LOW, LOCKED, HOB ELEVATED, SIDE RAILS UP, CALL LIGHT AND BEDSIDE TABLE WITHIN REACH. WILL ENDORSE TO DAYSHIFT RN FOR Pt's CHALINO.
[2017-12-16 06:46] LABS: CARBON DIOXIDE 23 mmol/L (21-32); CHLORIDE 93 mmol/L (98-107); CREATININE 1.1 mg/dL (0.6-1.3); GLUCOSE 91 mg/dL (74-106); MAGNESIUM 2.4 mg/dL (1.8-2.4); POTASSIUM 4.4 mmol/L (3.5-5.1); SODIUM SERUM 124 mmol/L (136-145); UREA NITROGEN, BLOOD 15 mg/dL (7-18)
--- NOTE | 2017-12-16 07:10 | NUR ---
MS RN OPENING NOTES. PT AWAKE AND RESTING, PT A&0X3, MALDIVIAN SPEAKING BUT HARD TO UNDERSTAND. PT TOLERATING ROOM AIR AND DENIES SOB. PT REPORTING 6/10 RIGHT LATERAL CHEST WALL/ABDO PAIN- PT REPORTS IT IS BETTER THAN BEFORE. PT WITH IVC AT R FA INTACT AND OPERATIONAL. PT BED IN LOWEST LOCKED POSITION WITH HANDRAILSX2 AND CALL BUSTILLOS WITHIN REACH. PT BRIEFED ON TODAY'S POC AND IS WITHOUT CONCERN OR COMPLAINT AT THIS TIME.
[2017-12-16 07:23] LABS: BASOPHILS % (AUTO) 0.3 % (0.0-2.0); EOSINOPHILS % (AUTO) 4.9 % (0.0-6.0); HEMATOCRIT 33 % (39-51); HEMOGLOBIN 10.9 g/dL (13.5-17.5); LYMPHOCYTES # (AUTO) 1.5 /CMM (0.8-4.8); MEAN CORPUSCULAR HGB CONC 33 g/dl (31.0-36.0); MEAN CORPUSCULAR VOLUME 95 fL (80-96); MONOCYTES # (AUTO) 0.5 /CMM (0.1-1.30); NEUTROPHILS # (AUTO) 5.2 /CMM (1.8-8.9); NEUTROPHILS % (AUTO) 67.8 % (43.0-81.0); PLATELET COUNT (AUTO) 291 /CMM (150-450); RDW COEFFICIENT OF VARIATION 15.9 (11.5-15.0); RED BLOOD CELL COUNT(AUTO) 3.47 MIL/uL (4.5-6.0); WHITE BLOOD COUNT (AUTO) 7.7 K/uL (4.3-11.0)
[2017-12-16] MEDS: ACETAMINOPHEN 325 MG TABLET PO PRN ×2 (07:52→15:32)
[2017-12-16] MEDS: PANTOPRAZOLE 40 MG TABLET.DR PO SCH (07:52)
[2017-12-16 08:00] VITALS: BP 142/79
[2017-12-16] MEDS: ALLOPURINOL 100 MG TABLET PO SCH ×2 (08:47→18:04)
[2017-12-16] MEDS: MAGNESIUM OXIDE 400 MG TABLET PO SCH ×2 (08:47→18:03)
[2017-12-16] MEDS: CLOPIDOGREL BISULFATE 75 MG TABLET PO SCH (08:48)
[2017-12-16] MEDS: LISINOPRIL (10MG) 10 MG TABLET PO SCH (08:48)
[2017-12-16] MEDS: CARVEDILOL 12.5 MG TABLET PO SCH ×2 (08:48→18:03)
--- NOTE | 2017-12-16 09:08 | NUR ---
MRI APPROVED BY DR. TEMPLE, WILL BE DONE AFTER 9.30AM PER DRAPERY HEAD FORMER.
[2017-12-16] MEDS: HYDROCODONE/APAP 10/325MG 1 EA TABLET PO PRN ×3 (11:06→23:19)
[2017-12-16] MEDS: MAGNESIUM HYDROXIDE 30 ML UDC PO PRN (11:07)
[2017-12-16 11:16] LABS: CALCIUM, SERUM 8.1 mg/dL (8.5-10.1); CARBON DIOXIDE 18 mmol/L (21-32); CHLORIDE 93 mmol/L (98-107); CREATININE 1.2 mg/dL (0.6-1.3); GLUCOSE 120 mg/dL (74-106); POTASSIUM 4.4 mmol/L (3.5-5.1); SODIUM SERUM 122 mmol/L (136-145); UREA NITROGEN, BLOOD 17 mg/dL (7-18)
[2017-12-16] MEDS: SODIUM CHLORIDE 1000 MG TABLET.SOL PO SCH ×2 (15:33→18:03)
[2017-12-16 16:00] VITALS: BP 129/79
--- NOTE | 2017-12-16 19:30 | NUR ---
MS RN CLOSING NOTES. PT RESTING, A&0X3. PT TOLERATING ROOM AIR AND DENIES SOB. PT REPORTING ADEQUATE PAIN MANAGEMENT AT THIS TIME. PT WITH IVC AT R FA INTACT AND OPERATIONAL. PT BED IN LOWEST LOCKED POSITION WITH HANDRAILSX2 AND CALL BUSTILLOS WITHIN REACH. ALL DAY NURSE DUTIES ATTENDED TO AND PT IS WITHOUT CONCERN OR COMPLAINT AT THIS TIME.
--- NOTE | 2017-12-16 19:30 | NUR ---
RECEIVED PT IN BED W/ FAMILY AT THE BED SIDE. NO C/O PAIN OR DISCOMFORT AT THIS TIME. NEEDS ATTENDED . BED LOW LOCKED .CALL LIGHT WITHIN REACH, WILL CONT TO MONITOR
[2017-12-16 20:00] VITALS: BP 109/55
[2017-12-16] MEDS: ATORVASTATIN 10 MG TABLET PO SCH (21:35)
[2017-12-16] MEDS ORDERED: ALBUTEROL FS 2.5 MG/0.5 ML VIAL.NEB NEB PRN (22:30)
[2017-12-16] MEDS ORDERED: IPRATROPIUM NEB FS 0.5 MG/2.5 ML AMPUL.NEB NEB PRN (22:30)
--- NOTE | 2017-12-16 23:23 | NUR ---
norco 10 given as ordered per pt's request for c/o right back pain. will cont to monitor ,
--- NOTE | 2017-12-17 06:27 | NUR ---
PT IN BED SLEEPING AROUSES EASILY. BREATHING EVENLY.NO SOB. NO ACUTE EVENT DURING THE NIGHT . PAIN MEDICATION GIVEN UPON REQUEST . EFFECTIVE, NEEDS ATTENDED . BED LOW LOCKED, CALL LIGHT WITHIN REACH, WILL CONT TO MONITOR ,
[2017-12-17 06:34] LABS: BASOPHILS % (AUTO) 0.4 % (0.0-2.0); EOSINOPHILS % (AUTO) 5.1 % (0.0-6.0); HEMATOCRIT 33 % (39-51); HEMOGLOBIN 10.9 g/dL (13.5-17.5); LYMPHOCYTES # (AUTO) 1.5 /CMM (0.8-4.8); LYMPHOCYTES % (AUTO) 20.2 % (20.0-44.0); MEAN CORPUSCULAR HGB CONC 34 g/dl (31.0-36.0); MEAN CORPUSCULAR VOLUME 96 fL (80-96); MONOCYTES # (AUTO) 0.6 /CMM (0.1-1.30); MONOCYTES % (AUTO) 8.2 % (2.0-12.0); NEUTROPHILS # (AUTO) 4.9 /CMM (1.8-8.9); NEUTROPHILS % (AUTO) 66.1 % (43.0-81.0); PLATELET COUNT (AUTO) 292 /CMM (150-450); RDW COEFFICIENT OF VARIATION 15.9 (11.5-15.0); WHITE BLOOD COUNT (AUTO) 7.5 K/uL (4.3-11.0)
[2017-12-17 06:45] LABS: CALCIUM, SERUM 7.9 mg/dL (8.5-10.1); CARBON DIOXIDE 25 mmol/L (21-32); CHLORIDE 91 mmol/L (98-107); CREATININE 1.3 mg/dL (0.6-1.3); GLUCOSE 93 mg/dL (74-106); MAGNESIUM 2.3 mg/dL (1.8-2.4); POTASSIUM 4.7 mmol/L (3.5-5.1); SODIUM SERUM 122 mmol/L (136-145); UREA NITROGEN, BLOOD 19 mg/dL (7-18)
[2017-12-17 08:00] VITALS: BP 138/72
--- NOTE | 2017-12-17 08:04 | NUR ---
RN OPENING NOTES RECEIVED PT. A/OX3, PT IS STABLE AND SLEEPING IN BED. NO S/S OF RESP DISTRESS. PT IS RECEIVING O2 2L VIA NC. WHEEZING NOTED PT SLEEPS. PT IS TO HAVE SX CONSULT IN AM. IV ACCESS LOCATED ON RIGHT FA 22G SL. SAFETY MEASURES IN PLACE, CALL LIGHT WITHIN REACH. WILL CONTINUE TO MONITOR.
[2017-12-17] MEDS: PANTOPRAZOLE 40 MG TABLET.DR PO SCH (08:41)
[2017-12-17] MEDS: MAGNESIUM OXIDE 400 MG TABLET PO SCH ×2 (08:41→17:20)
[2017-12-17] MEDS: ALLOPURINOL 100 MG TABLET PO SCH ×2 (08:42→17:20)
[2017-12-17] MEDS: SODIUM CHLORIDE 1000 MG TABLET.SOL PO SCH ×3 (08:42→17:20)
[2017-12-17] MEDS: CLOPIDOGREL BISULFATE 75 MG TABLET PO SCH (08:42)
[2017-12-17] MEDS: HYDROCODONE/APAP 10/325MG 1 EA TABLET PO PRN ×3 (08:42→21:41)
[2017-12-17] MEDS: LISINOPRIL (10MG) 10 MG TABLET PO SCH (08:47)
[2017-12-17] MEDS: CARVEDILOL 12.5 MG TABLET PO SCH ×2 (08:47→17:21)
--- NOTE | 2017-12-17 14:04 | NUR ---
RN NOTES TLSO BRACE REQUESTED FROM [facility] VIA FAX. ORDER AND FAX PLACED IN CHART.
[2017-12-17 16:00] VITALS: BP 146/72
--- NOTE | 2017-12-17 18:36 | NUR ---
RN CLOSING NOTES PT IN BED RESTING. NO S/S OF RESP DISTRESS OR SOB. PT HAS C/O PAIN IN RIGHT FLANK RATED AT 5/10. PREFERS NOT TO RECEIVE MORPHINE, ONLY NORCO FOR PAIN MANAGEMENT. SURGICAL CONSULT REMAINS PENDING. ALL PT NEEDS ANTICIPATED AND MET. SAFETY MEASURES IN PLACE, CALL LIGHT WITHIN REACH. WILL ENDORSE TO WORKFORCE SERVICES REPRESENTATIVE FOR CHALINO.
--- NOTE | 2017-12-17 19:30 | NUR ---
RN NOTE; RECEIVED PT IN BED W/ FAMILY AT THE BED SIDE . BREATHING EVENLY. NO SOB. NAD. SKIN WARM AND DRY. W/ ONGOING C/O BILATERAL FLANK/ BACK PAIN. CALL LIGHT WITHIN REACH. WILL CONT TO MONITOR
[2017-12-17 20:00] VITALS: BP 142/59
[2017-12-17] MEDS: ATORVASTATIN 10 MG TABLET PO SCH (21:40)
--- NOTE | 2017-12-17 21:43 | NUR ---
norco given for moderate backache. will cont to monitor.
[2017-12-18] MEDS: MORPHINE SULFATE INJ 2 MG/ML DISP.SYRIN IV PRN (04:28)
--- NOTE | 2017-12-18 04:31 | NUR ---
MORPHINE GIVEN FOR C/E SEVERE BILATERAL FLANK, BACK PAIN. WILL CONT TO MONITOR.
[2017-12-18 06:20] LABS: BASOPHILS % (AUTO) 0.4 % (0.0-2.0); EOSINOPHILS % (AUTO) 4.8 % (0.0-6.0); HEMATOCRIT 34 % (39-51); HEMOGLOBIN 11.4 g/dL (13.5-17.5); LYMPHOCYTES # (AUTO) 1.5 /CMM (0.8-4.8); LYMPHOCYTES % (AUTO) 18.3 % (20.0-44.0); MEAN CORPUSCULAR HGB CONC 34 g/dl (31.0-36.0); MEAN CORPUSCULAR VOLUME 96 fL (80-96); MONOCYTES # (AUTO) 0.7 /CMM (0.1-1.30); MONOCYTES % (AUTO) 8.4 % (2.0-12.0); NEUTROPHILS # (AUTO) 5.7 /CMM (1.8-8.9); NEUTROPHILS % (AUTO) 68.1 % (43.0-81.0); PLATELET COUNT (AUTO) 321 /CMM (150-450); RDW COEFFICIENT OF VARIATION 16.1 (11.5-15.0); WHITE BLOOD COUNT (AUTO) 8.4 K/uL (4.3-11.0)
--- NOTE | 2017-12-18 06:34 | NUR ---
RN NOTE, PT IN BED SLEEPING. BREATHING EVENLY. NO SOB. NO ACUTE EVENT DURING THE NIGHT. PAIN MED GIVEN ORDERED PER PT'S REQUEST , NEEDS ATTENDED. ASSISTED W/ ADLS. BED LOW LOCKED, CALL LIGHT WITHIN REACH,. WILL CONT TO MONITOR AND WILL ENDORSE TO AM SHIFT FOR CHALINO.
[2017-12-18 06:36] LABS: MAGNESIUM 1.9 mg/dL (1.8-2.4); PHOSPHORUS 3.7 mg/dL (2.5-4.9)
[2017-12-18 07:16] LABS: CALCIUM, SERUM 8.5 mg/dL (8.5-10.1); CARBON DIOXIDE 23 mmol/L (21-32); CHLORIDE 91 mmol/L (98-107); CREATININE 1.1 mg/dL (0.6-1.3); GLUCOSE 88 mg/dL (74-106); POTASSIUM 4.9 mmol/L (3.5-5.1); SODIUM SERUM 122 mmol/L (136-145); UREA NITROGEN, BLOOD 17 mg/dL (7-18)
--- NOTE | 2017-12-18 07:46 | NUR ---
RN OPENING NOTES RECEIVED PT. IN BED SLEEPING. BREATHING IS UNLABORED, AND EVEN ON OXYGEN AT 2L/MIN. NO SOB. NO S/S OF ACUTE DISTRESS. BED IS IN LOWEST, AND LOCKED POSITION. 2 SIDE RAILS UP, AND CALL LIGHT WITHIN REACH. ALL NEEDS MET. WILL CONTINUE TO ASSESS AND MONITOR.
[2017-12-18 08:00] VITALS: BP 145/69
[2017-12-18] MEDS: HYDROCODONE/APAP 10/325MG 1 EA TABLET PO PRN ×2 (09:01→15:06)
[2017-12-18] MEDS: SODIUM CHLORIDE 1000 MG TABLET.SOL PO SCH ×3 (09:02→17:53)
[2017-12-18] MEDS: CLOPIDOGREL BISULFATE 75 MG TABLET PO SCH (09:02)
[2017-12-18] MEDS: MAGNESIUM OXIDE 400 MG TABLET PO SCH ×2 (09:02→17:53)
[2017-12-18] MEDS: PANTOPRAZOLE 40 MG TABLET.DR PO SCH (09:02)
[2017-12-18] MEDS: LISINOPRIL (10MG) 10 MG TABLET PO SCH (09:02)
[2017-12-18] MEDS: ALLOPURINOL 100 MG TABLET PO SCH ×2 (09:02→17:53)
[2017-12-18] MEDS: CARVEDILOL 12.5 MG TABLET PO SCH ×2 (09:03→18:01)
[2017-12-18] MEDS: MAGNESIUM HYDROXIDE 30 ML UDC PO PRN (09:06)
[2017-12-18] MEDS: DEMECLOCYCLINE HCL 150 MG TABLET PO SCH ×2 (10:37→21:28)
[2017-12-18] MEDS: ACETAMINOPHEN 325 MG TABLET PO PRN (14:47)
[2017-12-18 16:00] VITALS: BP 100/61
--- NOTE | 2017-12-18 19:00 | NUR ---
RN CLOSING NOTES PT. IS IN BED A&OX3. BREATHING IS UNLABORED, AND EVEN ON OXYGEN AT 2L/MIN. NO SOB. NO S/S OF ACUTE DISTRESS. RIGHT FOREARM IV IS INTACT AND PATENT WITH SALINE FLUSH. PT. WAS ORDERED A THORACIC MRI WITHOUT CONTRAST. BED IS IN LOWEST, AND LOCKED POSITION. 2 SIDE RAILS UP, AND CALL LIGHT WITHIN REACH. ALL NEEDS MET. WILL ENDORSE REPORT TO NURSE.
[2017-12-18 20:00] VITALS: BP 129/69
[2017-12-18] MEDS: ATORVASTATIN 10 MG TABLET PO SCH (21:28)
[2017-12-19] MEDS: HYDROCODONE/APAP 10/325MG 1 EA TABLET PO PRN ×3 (00:07→16:30)
--- NOTE | 2017-12-19 06:51 | NUR ---
MS RN NOTES AWAKE & RESPONSIVE. NOT IN ANY DISTRESS. NO SOB NOTED. DENIES ANY PAIN OR DISCOMFORT AT THIS TIME. WITH IV-HL PATENT & INTACT. MONITORED ACCORDINGLY. AM CARE DONE. CALL LIGHT WITHIN REACH. BED IN LOWEST POSITION. SR UP X 2 FOR SAFETY WITH BED ALARM ON. WILL ENDORSE TO NEXT SHIFT.
[2017-12-19 06:57] LABS: CALCIUM, SERUM 8.7 mg/dL (8.5-10.1); CARBON DIOXIDE 24 mmol/L (21-32); CHLORIDE 94 mmol/L (98-107); CREATININE 1.2 mg/dL (0.6-1.3); GLUCOSE 94 mg/dL (74-106); POTASSIUM 5.1 mmol/L (3.5-5.1); SODIUM SERUM 125 mmol/L (136-145); UREA NITROGEN, BLOOD 19 mg/dL (7-18)
--- NOTE | 2017-12-19 07:15 | NUR ---
RN OPENING NOTES RECEIVED PT. IN BED SLEEPING. BREATHING IS UNLABORED, AND EVEN ON OXYGEN AT 2L/MIN. NO SOB. NO S/S OF ACUTE DISTRESS. IV ACCESS ON RIGHT FORARM INTACT. DVT PUMPS AT BEDSIDE. BED IS IN LOWEST, AND LOCKED POSITION. 2 SIDE RAILS UP, AND CALL LIGHT WITHIN REACH. ALL NEEDS MET. WILL CONTINUE TO ASSESS AND MONITOR.
[2017-12-19] MEDS: PANTOPRAZOLE 40 MG TABLET.DR PO SCH (07:51)
[2017-12-19 08:00] VITALS: BP 143/73
[2017-12-19] MEDS: ALLOPURINOL 100 MG TABLET PO SCH ×2 (08:47→16:31)
[2017-12-19] MEDS: MAGNESIUM OXIDE 400 MG TABLET PO SCH ×2 (08:47→16:31)
[2017-12-19] MEDS: CLOPIDOGREL BISULFATE 75 MG TABLET PO SCH (08:47)
[2017-12-19] MEDS: SODIUM CHLORIDE 1000 MG TABLET.SOL PO SCH ×3 (08:47→16:31)
[2017-12-19] MEDS: DEMECLOCYCLINE HCL 150 MG TABLET PO SCH ×2 (08:48→21:27)
[2017-12-19] MEDS: CARVEDILOL 12.5 MG TABLET PO SCH ×2 (08:48→16:31)
[2017-12-19] MEDS: LISINOPRIL (10MG) 10 MG TABLET PO SCH (08:48)
[2017-12-19] MEDS: MORPHINE SULFATE INJ 2 MG/ML DISP.SYRIN IV PRN ×2 (10:13→19:56)
--- NOTE | 2017-12-19 10:30 | NUR ---
RN NOTES PT. LEFT FOR MRI OF THORACIC SPINE WITHOUT CONTRAST. BEFORE LEAVING ROOM, PT. RECEIVED 4 MG OF MORPHINE IVP TO HELP WITH PAIN DURING PROCEDURE.
--- NOTE | 2017-12-19 11:00 | NUR ---
RN NOTES PT. RETURNED FROM MRI TO ROOM 309 BED 2. PER CITY SUPERVISOR PT.WAS UNABLE TO STAY STILL IN POSITION FOR TEST, AND THEREFORE UNABLE TO COMPLETE TEST.
[2017-12-19] MEDS: ACETAMINOPHEN 325 MG TABLET PO PRN (12:14)
[2017-12-19 16:00] VITALS: BP 140/70
--- NOTE | 2017-12-19 18:39 | NUR ---
RN CLOSING NOTES PT. IS IN BED A&OX2, WITH FAMILY AT BEDSIDE. BREATHING IS UNLABORED, AND EVEN ON OXYGEN AT 2L/MIN VIA NASAL CANNULA. NO SOB. NO S/S OF ACUTE DISTRESS. IV ACCESS ON RIGHT FOREARM IS INTACT. DVT PUMPS AT BEDSIDE. BED IS IN LOWEST, AND LOCKED POSITION. 2 SIDE RAILS UP, AND CALL LIGHT WITHIN REACH. ALL NEEDS MET. WILL CONTINUE TO ASSESS AND MONITOR.
[2017-12-19 20:01] VITALS: BP 104/50
[2017-12-19] MEDS: ATORVASTATIN 10 MG TABLET PO SCH (21:27)
--- NOTE | 2017-12-20 06:26 | NUR ---
MS RN NOTES AWAKE & RESPONSIVE. NOT IN ANY DISTRESS. NO SOB NOTED. DENIES ANY PAIN OR DISCOMFORT AT THIS TIME. WITH IV-HL PATENT & INTACT. MONITORED ACCORDINGLY. AM CARE DONE. CALL LIGHT WITHIN REACH. BED IN LOWEST POSITION. SR UP X 3 WITH BED ALARM ON FOR SAFETY. WILL ENDORSE TO NEXT SHIFT.
[2017-12-20 08:00] VITALS: BP 156/77
--- NOTE | 2017-12-20 08:00 | NUR ---
RN NOTES RECEIVED PATIENT IN THE BED BRIT[place] SPEAKER, A/O X2/3 WITH CONFUSION, TRYING TO UNDRESS SELF, AND REMOVE DIAPER. PATIENT HAS NO RESPIRATORY DISTRESS. PATIENT COMPLAINING OF PAIN GENERALIZED, NEEDS ATTENDED AND ANTICIPATED, ASSIST EATING, SCHEDULED MEDICATION ADMINISTERED, V/S TAKEN STABLE, CALL LIGHT WITHIN TO REACH, CONTINUED MONITORING.
[2017-12-20] MEDS: MAGNESIUM OXIDE 400 MG TABLET PO SCH (08:24)
[2017-12-20] MEDS: ALLOPURINOL 100 MG TABLET PO SCH (08:24)
[2017-12-20] MEDS: DEMECLOCYCLINE HCL 150 MG TABLET PO SCH (08:24)
[2017-12-20] MEDS: CLOPIDOGREL BISULFATE 75 MG TABLET PO SCH (08:24)
[2017-12-20 08:25] VITALS: BP 156/77
[2017-12-20] MEDS: LISINOPRIL (10MG) 10 MG TABLET PO SCH (08:25)
[2017-12-20] MEDS: CARVEDILOL 12.5 MG TABLET PO SCH (08:25)
[2017-12-20] MEDS: PANTOPRAZOLE 40 MG TABLET.DR PO SCH (08:25)
[2017-12-20] MEDS: SODIUM CHLORIDE 1000 MG TABLET.SOL PO SCH ×2 (08:26→12:31)
[2017-12-20] MEDS: MORPHINE SULFATE INJ 2 MG/ML DISP.SYRIN IV PRN (08:27)
--- NOTE | 2017-12-20 08:27 | NUR ---
RN NOTES ADMINISTERED MORPHINE SULFATE 4 MG/ML IV PUSH ,PER PATIENT REQUEST FOR GENERALIZED PAIN 05/02. V/S TAKEN BP -156/77, P-75, PATIENT TURN AND REPOSTION SELF IN THE BED, CALL LIGHT WITHIN TO REACH, CONTINUED MONITORING.
--- NOTE | 2017-12-20 09:00 | NUR ---
RN NOTES PATIENT IN THE BED. MEDICATION WERE ADMINISTERED FOR PAIN EFFECTIVE, PATIENT TURN AND REPOSTION SELF IN THE BED. DAUGHTER NEXT TO THE BED. CONTINUED MONITORING.
[2017-12-20 12:11] LABS: BASOPHILS # (AUTO) 0.1 /CMM (0.0-0.2); BASOPHILS % (AUTO) 0.8 % (0.0-2.0); EOSINOPHILS % (AUTO) 5.4 % (0.0-6.0); HEMATOCRIT 31 % (39-51); HEMOGLOBIN 10.6 g/dL (13.5-17.5); LYMPHOCYTES # (AUTO) 1.5 /CMM (0.8-4.8); LYMPHOCYTES % (AUTO) 18.5 % (20.0-44.0); MEAN CORPUSCULAR HGB CONC 34 g/dl (31.0-36.0); MEAN CORPUSCULAR VOLUME 95 fL (80-96); MONOCYTES # (AUTO) 0.8 /CMM (0.1-1.30); MONOCYTES % (AUTO) 9.7 % (2.0-12.0); NEUTROPHILS # (AUTO) 5.2 /CMM (1.8-8.9); NEUTROPHILS % (AUTO) 65.6 % (43.0-81.0); PLATELET COUNT (AUTO) 324 /CMM (150-450); RDW COEFFICIENT OF VARIATION 15.8 (11.5-15.0)
[2017-12-20 13:02] LABS: CALCIUM, SERUM 8.2 mg/dL (8.5-10.1); CARBON DIOXIDE 27 mmol/L (21-32); CHLORIDE 95 mmol/L (98-107); CREATININE 1.2 mg/dL (0.6-1.3); GLUCOSE 116 mg/dL (74-106); POTASSIUM 4.9 mmol/L (3.5-5.1); SODIUM SERUM 127 mmol/L (136-145); UREA NITROGEN, BLOOD 19 mg/dL (7-18)
[2017-12-20] MEDS ORDERED: DEME150T2 PO (13:07)
[2017-12-20] MEDS: HYDROCODONE/APAP 10/325MG 1 EA TABLET PO PRN (16:20)
--- NOTE | 2017-12-20 16:20 | NUR ---
RN NOTES ADMINISTERED NARCO 10/325 MG PO PRN FOR RIGHT SIDE FLANK PAIN 04/01 PER PATIENT REQUEST. V/S TAKEN BP- 116/85, P-78, ENCOURAGED TO INCREASE FLUID INTAKE, CONTINUED MONITORING.
--- NOTE | 2017-12-20 16:35 | NUR ---
DISCHARGE NOTE PATIENT DISCHARGE AT THIS TIME GOING HOME. MED RECONCILIATION AND DISCHARGE ORDER REVIEWED AND EXPLAINED TO PATIENT AND DAUGHTER. DAUGHTER VERBALIZED UNDERSTANDING. PATIENT WILL FOLLOW PRIMARY MANAGER FIELD SALES. BELONGING WITH THE PATIENT. V/S STABLE, MEDICATION WERE ADMINISTERED FOR PAIN EFFECTIVE. PATIENT PAYLOADER OPERATOR BY DAUGHTER NAME EVAN PHONE # [phone]. ESCORTED PATIENT TO THE LOBBY FOR SAFETY.
== END 2017-12-20 16:30 | disposition home or self-care (01) | DRG 424 ==
LOC: ER 02:01 → MED 05:15
PROVIDERS: ADMIT Nurse Practitioner Acute Care; ATTEND Nurse Practitioner Acute Care
DX: E22.2 Syndrome of inappropriate secretion of antidiuretic hormone (principal); G93.40 Encephalopathy, unspecified; M48.55XA Collapsed vertebra, not elsewhere classified, thoracolumbar region, initial encounter for fracture; F03.90 Unspecified dementia, unspecified severity, without behavioral disturbance, psychotic disturbance, mood disturbance, and anxiety; N18.9 Chronic kidney disease, unspecified; K42.9 Umbilical hernia without obstruction or gangrene; Z79.899 Other long term (current) drug therapy; E78.5 Hyperlipidemia, unspecified; K21.9 Gastro-esophageal reflux disease without esophagitis; M85.80 Other specified disorders of bone density and structure, unspecified site; I12.9 Hypertensive chronic kidney disease with stage 1 through stage 4 chronic kidney disease, or unspecified chronic kidney disease; F32.9 Major depressive disorder, single episode, unspecified
CPT/HCPCS: 36415; 71045-TC; 72148-TC; 80048-TC; 80061-TC; 80076-TC; 81000-TC; 83690-TC; 83735-TC; 83935-TC; 84100-TC; 84295-TC; 84300-TC; 84443-TC; 84484-TC; 85025-TC; 85730-TC; 87081-TC; 97110-TC; 97530-TC; A4606; J2270; J2405; J3475; J3490; J7030; J7040; J7050; Z7610

== ENCOUNTER 2017-12-23 06:53 | Inpatient (IN) | payer OTHER ==
[~2017-12-23] VITALS: Ht 172.7 cm; Wt 70.3 kg
[~2017-12-23 06:53] MED LIST changes: -AMLO10TA6 PO; +ATOR20TA PO; +CARV12.5 PO; +CLOP75TA15 PO; +DEME150T2 PO; -ENAL20TA PO; -FURO-145 PO; -HYDR-548 PO; +HYDR-552 PO; +LISI10TA5 PO; +MAGN400T6 PO; +NITR0.4T48 SL; -SUCR1ORA6 GT
--- NOTE | 2017-12-23 07:00 | NUR ---
DR ANDRADE AT BEDSIDE TO EVALUATE PATIENT.
--- NOTE | 2017-12-23 07:00 | NUR ---
TO BED 12 AN 87 YO MALE PT BIBA#88 FROM HOME, PT C/O ABD PAIN X 20 DAYS. PATIENT IS AAOX3, VSS. NAD NOTED. NONDIAPHORETIC. COMFORT MEASURES RENDERED. PLACED PATIENT ON TELE MONITOR.
--- NOTE | 2017-12-23 07:16 | NUR ---
IV STARTED, BLOOD DRAWN AND SPECIMEN SENT TO LAB. IV NS INFUSING WELL ORDERED.
--- NOTE | 2017-12-23 07:26 | NUR ---
PT GAVE URINE THROUGH URINAL, URINE SPECIMEN COLLECTED AND CALLED LAB FOR DIRECTOR OF CURRICULUM.
[2017-12-23 07:27] LABS: BASOPHILS % (AUTO) 0.6 % (0.0-2.0); EOSINOPHILS % (AUTO) 7.5 % (0.0-6.0); HEMATOCRIT 34 % (39-51); HEMOGLOBIN 11.4 g/dL (13.5-17.5); LYMPHOCYTES # (AUTO) 1.7 /CMM (0.8-4.8); LYMPHOCYTES % (AUTO) 21.4 % (20.0-44.0); MEAN CORPUSCULAR HGB CONC 34 g/dl (31.0-36.0); MEAN CORPUSCULAR VOLUME 94 fL (80-96); MONOCYTES # (AUTO) 0.6 /CMM (0.1-1.30); MONOCYTES % (AUTO) 8.1 % (2.0-12.0); NEUTROPHILS # (AUTO) 4.9 /CMM (1.8-8.9); NEUTROPHILS % (AUTO) 62.4 % (43.0-81.0); PLATELET COUNT (AUTO) 360 /CMM (150-450); RDW COEFFICIENT OF VARIATION 15.4 (11.5-15.0); WHITE BLOOD COUNT (AUTO) 7.8 K/uL (4.3-11.0)
[2017-12-23] MEDS ORDERED: IV NS 0.9% 500 ML BAG IV ONE (07:30)
[2017-12-23 07:47] LABS: TROPONIN I < 0.017 ng/mL (0.00-0.056)
[2017-12-23 07:54] LABS: ALANINE AMINOTRANSFERASE 22 U/L (12-78); ALBUMIN 2.7 g/dL (3.4-5.0); ALKALINE PHOSPHATASE 105 U/L (46-116); ASPARTATE AMINOTRANSFERASE 32 U/L (15-37); BILIRUBIN,DIRECT 0.1 mg/dL (0.0-0.2); BILIRUBIN,TOTAL 0.7 mg/dL (0.2-1.0); CALCIUM, SERUM 8.5 mg/dL (8.5-10.1); CARBON DIOXIDE 22 mmol/L (21-32); CHLORIDE 89 mmol/L (98-107); CREATININE 0.8 mg/dL (0.6-1.3); GLUCOSE 106 mg/dL (74-106); LIPASE 146 U/L (73-393); POTASSIUM 4.3 mmol/L (3.5-5.1); TOTAL PROTEIN, SERUM 5.8 g/dL (6.4-8.2); UREA NITROGEN, BLOOD 17 mg/dL (7-18)
[2017-12-23 08:01] LABS: SODIUM SERUM 119 mmol/L (136-145)
--- NOTE | 2017-12-23 08:06 | NUR ---
[facility] PAGED, DR BROWNLEE PROJECT PRODUCT MANAGER [phone]
[2017-12-23 08:08] LABS: APPEARANCE,URINE CLEAR (CLEAR); BILIRUBIN,URINE NEGATIVE (NEGATIVE); BLOOD, URINE NEGATIVE Ery/uL (NEGATIVE); COLOR,URINE YELLOW (YELLOW); KETONES,URINE NEGATIVE (NEGATIVE); LEUKOCYTE ESTERASE ,URINE NEGATIVE (NEGATIVE); NITRITE, URINE NEGATIVE (NEGATIVE); PH,URINE 8.5 (5.0-8.0); PROTEIN,URINE 2+ mg/dl (NEGATIVE); UGLUCOSE NEGATIVE (NEGATIVE); UROBILINOGEN,URINE 0.2 EU/dL (0.2)
--- NOTE | 2017-12-23 08:37 | NUR ---
Report given to jose leyva for cont of care,
--- NOTE | 2017-12-23 08:57 | NUR ---
Transferred to floor in stable condition.
--- NOTE | 2017-12-23 09:10 | NUR ---
RN NOTES: PATIENT RECEIVED FROM ER. PATIENT STABLE. AOX3 WITH PERIODS OF CONFUSION, PERSIAN SPEAKING. NONLABORED BREATHING NOTED ON 2 L. IV SITE ON LEFT AC #20. DENIES HEADACHES. BED IN LOWEST LOCKED POSITION. CALL LIGHT WITHIN REACH. WILL CONTINUE TO MONITOR ASPIRATION AND SEIZURE PRECAUTIONS IMPLEMENTED
--- NOTE | 2017-12-23 09:10 | NUR ---
RN NOTES: PATIENT RECEIVED FROM ER. PATIENT STABLE. AOX3, [place] SPEAKING. NONLABORED BREATHING NOTED ON 2 L. IV SITE ON LEFT AC #20. DENIES HEADACHES. BED IN LOWEST LOCKED POSITION. CALL LIGHT WITHIN REACH. WILL CONTINUE TO MONITOR ASPIRATION AND SEIZURE PRECAUTIONS IMPLEMENTED
[2017-12-23 09:30] VITALS: BP 142/65
[2017-12-23] MEDS ORDERED: HYDROCODONE/APAP 5/325MG 1 EACH TABLET PO PRN (09:30)
[2017-12-23] MEDS ORDERED: Z GUARD REMEDY 2 OZ OINT TP PRN (09:30)
[2017-12-23] MEDS ORDERED: ZOLPIDEM TARTRATE 5 MG TABLET PO PRN (09:30)
[2017-12-23] MEDS ORDERED: NITROGLYCERIN 0.4 MG/TAB BOTTLE SL PRN (09:30)
[2017-12-23] MEDS ORDERED: MAG HYDROX/AL HYDROX/SIMETH 30 ML UDC PO PRN (09:30)
[2017-12-23] MEDS ORDERED: MAGNESIUM HYDROXIDE 30 ML UDC PO PRN (09:30)
[2017-12-23] MEDS ORDERED: ACETAMINOPHEN 325 MG TABLET PO PRN (09:30)
[2017-12-23] MEDS ORDERED: ONDANSETRON HCL/PF 4 MG/2 ML VIAL IVP PRN (09:30)
[2017-12-23 09:39] LABS: BACTERIA,URINE Rare /HPF (None Seen); RBC,URINE 0-2 /HPF (0-2); SQUAMOUS EPITHELIAL CELL,UR Rare /HPF (None Seen); WBC,URINE 0-2 /HPF (0-3)
--- NOTE | 2017-12-23 09:40 | NUR ---
RN NOTES: PATIENT SEEN BY DR BURGOS DURING ROUNDS. NOTIFIED DR THAT PATIENT'S PUPILS NOT EQUAL, HOWEVER ABLE TO FOLLOW PEN. RIGHT EYE 3 AND LEFT EYE 4MM. PER DR BURGOS, LEFT EYE , "SURGICAL EYE"
[2017-12-23] MEDS: HYDROCODONE/APAP 5/325MG 1 EACH TABLET PO PRN ×2 (09:57→16:57)
[2017-12-23 10:38] LABS: CALCIUM, SERUM 8.1 mg/dL (8.5-10.1); CARBON DIOXIDE 23 mmol/L (21-32); CHLORIDE 90 mmol/L (98-107); GLUCOSE 96 mg/dL (74-106); POTASSIUM 4.4 mmol/L (3.5-5.1); SODIUM SERUM 121 mmol/L (136-145); UREA NITROGEN, BLOOD 16 mg/dL (7-18)
[2017-12-23] MEDS: DEMECLOCYCLINE HCL 150 MG TABLET PO SCH ×2 (11:09→21:21)
[2017-12-23] MEDS ORDERED: IV NS 0.9% 1,000 ML IV PRN (11:30)
[2017-12-23] MEDS: MORPHINE SULFATE INJ 4 MG/ML DISP.SYRIN IV PRN ×3 (12:03→23:13)
[2017-12-23] MEDS ORDERED: ALBUTEROL FS 2.5 MG/0.5 ML VIAL.NEB NEB PRN (14:00)
--- NOTE | 2017-12-23 14:01 | NUR ---
RN NOTES: PER DR BROWNLEE, ALBUTEROL 2.5 MG/0.5 HFN PRN EVERY 4 HOURS
[2017-12-23 16:00] VITALS: BP 142/64
[2017-12-23] MEDS: ALLOPURINOL 100 MG TABLET PO SCH (16:34)
[2017-12-23] MEDS: MAGNESIUM OXIDE 400 MG TABLET PO SCH (16:35)
--- NOTE | 2017-12-23 17:40 | NUR ---
RN NOTES: DR BROWNLEE AWARE OF PATIENT'S INABILITY TO UNDERGO STAT THORACIC CT. PER MD, TO TRY DIAGNOSTIC TEST TOMORROW
[2017-12-23] MEDS: CARVEDILOL 12.5 MG TABLET PO SCH (18:00)
--- NOTE | 2017-12-23 18:09 | NUR ---
RN NOTES: PATIENT'S DAUGHTER NOTIFIED TO BRING TLSO BRACE FROM HOME
[2017-12-23 18:47] LABS: URINE SODIUM, RANDOM 92 mmol/l (40-220)
--- NOTE | 2017-12-23 18:56 | NUR ---
RN NOTES: PATIENT RESTING IN BED. NONLABORED BREATHING NOTED ON ROOM AIR. NO SIGNS OF DISTRESS NOTED. IV SITE ON LEFT AC PATENT AND INTACT. WITH ORDERED FLUIDS RUNNING. URINE SAMPLE COLLECTED AND SENT TO LAB. PATIENT KEPT CLEAN AND DRY THROUGHOUT SHIFT. NO SEIZURES NOTED DURING SHIFT. PATIENT DENYING HEADACHES. PATIENT STILL REFUSING TO UNDERGO CT THORACIC. BED IN LOWEST LOCKED POSITION. CALL LIGHT WITHIN REACH. PATIENT TOLERATING PUREED DIET WELL. HOWEVER, REFUSING TO EAT STATING THAT HE DOES NOT HAVE THE APPETITE. PATIENT OFFERED SNACKS
[2017-12-23 19:11] LABS: OSMOLALITY,URINE 422 mOS/kg (340-1090)
--- NOTE | 2017-12-23 19:35 | NUR ---
MS RN OPENING NOTES RECEIVED PT LAYING IN BED WITH HOB ELEVATED. AWAKE AND RESPONSIVE. RESPIRATIONS ARE EVEN AND UNLABORED, NOT IN ANY ACUTE DISTRESS NOTED. DENIES ANY PAIN AT THIS TIME. IV SITE INTACT, NO INFILTRATION NOTED. DRESSING KEPT CLEAN AND DRY. INSTRUCTED PT TO USE CALL LIGHT WHEN ASSISTANCE IS NEEDED, CALL LIGHT IS LEFT WITHIN REACH. WILL CONTINUE TO MONITOR PT THROUGHOUT SHIFT.
[2017-12-23 20:00] VITALS: BP 145/72
[2017-12-23 20:18] VITALS: BP 145/72
--- NOTE | 2017-12-23 22:00 | NUR ---
MS RN NOTE REPORT WAS RECEIVED FROM JANELLE DE ANDA. PT IS IN BED SLEEPING, EASILY AROUSED/ CONFUSED. BED IS IN LOW AND LOCKED POSITION, CALL LIGHT WITHIN REACH, BED ALARM IS ON. WILL CONTINUE TO MONITOR
--- NOTE | 2017-12-23 22:02 | NUR ---
MS RN NOTES PT ASSIGNED TO ANOTHER NURSE. PT IS SLEEPING COMFORTABLY, RESPIRATIONS ARE EVEN AND UNLABORED. PT IS NOT IN ACUTE DISTRESS AND IN STABLE CONDITION AT THIS TIME. ENDORSED FOR CHALINO.
--- NOTE | 2017-12-24 06:22 | NUR ---
MS RN CLOSING NOTE PT IS IN BED AWAKE AND ALERT WITH MOMENTS OF CONFUSION. DENIES ANY PAIN AT THIS TIME. BREATHING EVENLY AND UNLABORED ON 2L NC. NO SIGNS OF SOB OR DISTRESS. PT IS RESCHEDULED FOR CT THORACIC SPINE WITHOUT CONTRAST FOR TODAY. IV ACCESS IS INTACT AND PATENT. ALL NEEDS WERE ANTICIPATED AND MET. BED IS IN LOW AND LOCKED POSITION, CALL LIGHT WITHIN REACH. WILL ENDORSE TO DAYSHIFT.
[2017-12-24 06:45] LABS: BASOPHILS % (AUTO) 0.5 % (0.0-2.0); EOSINOPHILS % (AUTO) 6.2 % (0.0-6.0); HEMATOCRIT 33 % (39-51); HEMOGLOBIN 11.1 g/dL (13.5-17.5); LYMPHOCYTES # (AUTO) 1.7 /CMM (0.8-4.8); LYMPHOCYTES % (AUTO) 20.4 % (20.0-44.0); MEAN CORPUSCULAR HGB CONC 34 g/dl (31.0-36.0); MEAN CORPUSCULAR VOLUME 94 fL (80-96); MONOCYTES # (AUTO) 0.7 /CMM (0.1-1.30); MONOCYTES % (AUTO) 7.8 % (2.0-12.0); NEUTROPHILS # (AUTO) 5.5 /CMM (1.8-8.9); NEUTROPHILS % (AUTO) 65.1 % (43.0-81.0); PLATELET COUNT (AUTO) 377 /CMM (150-450); RDW COEFFICIENT OF VARIATION 15.4 (11.5-15.0); RED BLOOD CELL COUNT(AUTO) 3.46 MIL/uL (4.5-6.0); WHITE BLOOD COUNT (AUTO) 8.5 K/uL (4.3-11.0)
[2017-12-24 07:16] LABS: CALCIUM, SERUM 8.3 mg/dL (8.5-10.1); CARBON DIOXIDE 21 mmol/L (21-32); CHLORIDE 90 mmol/L (98-107); GLUCOSE 107 mg/dL (74-106); MAGNESIUM 1.3 mg/dL (1.8-2.4); PHOSPHORUS 4.4 mg/dL (2.5-4.9); POTASSIUM 4.4 mmol/L (3.5-5.1); SODIUM SERUM 121 mmol/L (136-145); UREA NITROGEN, BLOOD 16 mg/dL (7-18)
--- NOTE | 2017-12-24 07:25 | NUR ---
MS RN OPENING NOTES. RECEIVED PATIENT IN BED, AWAKE, ALERT X2, ABLE TO MAKE SIMPLE NEEDS KNOWN KAZAK[place] SPEAKER, EASILY AROUSABLE, RESPIRATIONS EVEN AND UNLABORED, NO COMPLAINT OF PAIN AT THIS TIME. IV TO LEFT AC 20GUAGE INTACT AND PATENT, NO REDNESS NO INFILTRATION NOTED,ON IVF FLUIDS RUNNING ORDERED, URINAL WITHIN REACH AT BEDSIDE SAFETY MEASURES WITHIN REACH . CALL LIGHT KEPT WITHIN REACH WILL CONTINUE TO MONITOR.
[2017-12-24 07:53] LABS: CHOLESTEROL 103 mg/dL (<200); HDL CHOLESTEROL 32 mg/dL (40-60); LDL 55 mg/dL (0-99); TRIGLYCERIDES 105 mg/dL (30-150)
[2017-12-24 08:00] VITALS: BP 161/91
[2017-12-24] MEDS: PANTOPRAZOLE 40 MG TABLET.DR PO SCH (08:37)
[2017-12-24] MEDS: ATORVASTATIN 10 MG TABLET PO SCH (08:38)
[2017-12-24] MEDS: DEMECLOCYCLINE HCL 150 MG TABLET PO SCH ×2 (08:38→21:31)
[2017-12-24] MEDS: CARVEDILOL 12.5 MG TABLET PO SCH ×2 (08:38→17:00)
[2017-12-24] MEDS: ALLOPURINOL 100 MG TABLET PO SCH ×2 (08:39→17:14)
[2017-12-24] MEDS: CLOPIDOGREL BISULFATE 75 MG TABLET PO SCH (08:39)
[2017-12-24] MEDS: MAGNESIUM OXIDE 400 MG TABLET PO SCH ×2 (08:39→17:14)
[2017-12-24] MEDS: LISINOPRIL (10MG) 10 MG TABLET PO SCH (08:39)
[2017-12-24] MEDS: HYDROCODONE/APAP 5/325MG 1 EACH TABLET PO PRN ×2 (08:56→21:31)
[2017-12-24] MEDS: Magnesium 1GM/D5W 100ML PREMIX 100 ML IV SCH ×2 (10:02→11:42)
[2017-12-24 10:04] LABS: OSMOLALITY,SERUM 249 mOS/kg (278-305)
--- NOTE | 2017-12-24 13:07 | NUR ---
RN MS NOTES ASSESSED PATIENT NOTED BLOOD PRESSURE AT 88/44, HR 61,O2 SAT 94% ON 3LITERS, TEMP 97.6, RESP. 18, NOTIFIED DR. BROWNLEE. PER MD WILL REVIEW CT SCAN. PATIENT IS AWAKE AND EASILY AROUSABLE.
--- NOTE | 2017-12-24 13:22 | NUR ---
RN MS NOTES. NEW ORDERS OBTAINED PER DR. BROWNLEE FOR LASIX 20MG IV.AWARE OF CURRENT BLOOD PRESSURE 88/44. PATIENT TO ALSO HAVE CHEST XRAY, WILL CONTINUE TO MONITOR.
[2017-12-24] MEDS ORDERED: FUROSEMIDE 40 MG/4 ML VIAL IV ONE (13:30)
--- NOTE | 2017-12-24 14:35 | NUR ---
RN MS NOTES NOTED DAUGHTER AT BEDSIDE FEEDING THE PATIENT WITH BURGER, MADE AWARE OF DIET AND ASPIRATION, AND CHOKING , HOWEVER CONTINUED TO FEED PATIENT,STATED" I WILL GIVE THE PATIENT WHAT I NEED TO GIVE THE PATIENT HE CAN CHEW HE HAS NO PROBLEM." CHARGE NURSE MADE AWARE.
[2017-12-24 16:00] VITALS: BP 108/54
--- NOTE | 2017-12-24 16:16 | NUR ---
RN MS NOTES WILL CONTINUE TO FOLLOW UP WITH MD REGARDING PAIN MEDICATION, PATIENT REMAINS COMFORTABLE AT THIS TIME, DENIES PAIN.
[2017-12-24] MEDS ORDERED: SODIUM CHLORIDE 1000 MG TABLET.SOL PO SCH (17:00)
--- NOTE | 2017-12-24 19:28 | NUR ---
MS RN CLOSING NOTES. 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 IV TO RIGHT FA 22GUAGE INTACT AND PATENT, NO REDNESS NO INFILTRATION NOTED, URINAL WITHIN REACH AT BEDSIDE SAFETY MEASURES WITHIN REACH, URINATING WELL. SAFTEY MEASURES IN PLACE,CALL LIGHT KEPT WITHIN REACH.
--- NOTE | 2017-12-24 19:30 | NUR ---
MS/RN RECEIVE PATIENT AWAKE, ALERT, ORIENTED, COMFORTABLE, NO C/O PAIN, NO DISTRESS NOTED, CALL LIGHT IN REACH. FAMILY MEMBER AT BEDSIDE. FALL PRECAUTION PER PROTOCOL. WILL MONITOR.
[2017-12-24 20:00] VITALS: BP 123/61
--- NOTE | 2017-12-24 20:56 | NUR ---
MS/RN AUDIBLE WHEEZING NOTED, RT WAS CALLED FOR BREATHING TREATMENT.
--- NOTE | 2017-12-24 21:30 | NUR ---
MS/RN DAUGHTER REFUSES TO CRUSH MEDS. PER DAUGHTER PATIENT WAS TAKING MEDS WHOLE AT HOME, AND EATING REGULAR DIET AT HOME.
--- NOTE | 2017-12-25 00:59 | NUR ---
MS/RN PATIENT IS SLEEPING AT THIS TIME, AROUSABLE, APPEAR COMFORTABLE, NO SIGNS OF DISTRESS NOTED, CALL LIGHT IN REACH. WILL CONTINUE TO MONITOR.
[2017-12-25] MEDS: HYDROCODONE/APAP 5/325MG 1 EACH TABLET PO PRN ×2 (02:55→09:43)
--- NOTE | 2017-12-25 06:46 | NUR ---
MS/RN PATIENT WAS NOTED TO HAVE AUDIBLE WHEEZING WITH MILDLY LABORED BREATHING, VITAL SIGNS CHECKED, BP 124/62, HR 75, O2 SAT 99% ON 3L O2. PLACED A CALL TO [facility], SPOKE TO MAU RUTLEDGE NP WITH ORDERS RECEIVED, CARRIED OUT. CALLED RT, SPOKE TO ROCAEL FOR THE BREATHING TREATMENT THAT WAS ORDERED. WILL MONITOR.
[2017-12-25] MEDS ORDERED: FUROSEMIDE 20 MG/2 ML VIAL IV ONE (07:00)
[2017-12-25] MEDS: ALBUTEROL FS 2.5 MG/0.5 ML VIAL.NEB NEB SCH ×5 (07:17→19:38)
--- NOTE | 2017-12-25 07:40 | NUR ---
MS RN OPENING NOTES RECEIVED PATIENT IN BED, SLEEPING, EASILY AROUSABLE, RESPIRATIONS EVEN AND UNLABORED, ON 02 VIA NC. IV TO R FOREARM 22 GAUGE, INTACT, NO REDNESS, NO INFILTRATION NOTED, SAFETY MEASURES IN PLACE, CALL LIGHT KEPT WITHIN REACH WILL CONTINUE TO MONITOR.
[2017-12-25 08:00] VITALS: BP_SYST 113; BP_SYST 90; BP_DIAS 42; BP_DIAS 60
[2017-12-25 09:00] LABS: BASOPHILS % (AUTO) 0.4 % (0.0-2.0); EOSINOPHILS % (AUTO) 5.3 % (0.0-6.0); HEMATOCRIT 31 % (39-51); HEMOGLOBIN 10.5 g/dL (13.5-17.5); LYMPHOCYTES # (AUTO) 1.6 /CMM (0.8-4.8); LYMPHOCYTES % (AUTO) 19.9 % (20.0-44.0); MEAN CORPUSCULAR HGB CONC 34 g/dl (31.0-36.0); MEAN CORPUSCULAR VOLUME 95 fL (80-96); MONOCYTES # (AUTO) 0.7 /CMM (0.1-1.30); MONOCYTES % (AUTO) 8.1 % (2.0-12.0); NEUTROPHILS # (AUTO) 5.4 /CMM (1.8-8.9); NEUTROPHILS % (AUTO) 66.3 % (43.0-81.0); PLATELET COUNT (AUTO) 375 /CMM (150-450); RDW COEFFICIENT OF VARIATION 15.1 (11.5-15.0); RED BLOOD CELL COUNT(AUTO) 3.28 MIL/uL (4.5-6.0); WHITE BLOOD COUNT (AUTO) 8.2 K/uL (4.3-11.0)
[2017-12-25] MEDS: LISINOPRIL (10MG) 10 MG TABLET PO SCH (09:00)
[2017-12-25] MEDS: CARVEDILOL 12.5 MG TABLET PO SCH ×2 (09:00→17:00)
[2017-12-25 09:33] LABS: ALANINE AMINOTRANSFERASE 21 U/L (12-78); ALBUMIN 2.8 g/dL (3.4-5.0); ALKALINE PHOSPHATASE 106 U/L (46-116); ASPARTATE AMINOTRANSFERASE 33 U/L (15-37); BILIRUBIN,TOTAL 0.8 mg/dL (0.2-1.0); CALCIUM, SERUM 8.3 mg/dL (8.5-10.1); CARBON DIOXIDE 21 mmol/L (21-32); CHLORIDE 88 mmol/L (98-107); CREATININE 1.3 mg/dL (0.6-1.3); GLUCOSE 124 mg/dL (74-106); MAGNESIUM 1.7 mg/dL (1.8-2.4); PHOSPHORUS 4.7 mg/dL (2.5-4.9); POTASSIUM 4.3 mmol/L (3.5-5.1); SODIUM SERUM 121 mmol/L (136-145); TOTAL PROTEIN, SERUM 5.8 g/dL (6.4-8.2); UREA NITROGEN, BLOOD 21 mg/dL (7-18)
[2017-12-25] MEDS: PANTOPRAZOLE 40 MG TABLET.DR PO SCH (09:37)
[2017-12-25] MEDS: DEMECLOCYCLINE HCL 150 MG TABLET PO SCH (09:37)
[2017-12-25] MEDS: ALLOPURINOL 100 MG TABLET PO SCH ×2 (09:38→18:04)
[2017-12-25] MEDS: ATORVASTATIN 10 MG TABLET PO SCH (09:38)
[2017-12-25] MEDS: MAGNESIUM OXIDE 400 MG TABLET PO SCH ×2 (09:38→18:04)
[2017-12-25] MEDS: CLOPIDOGREL BISULFATE 75 MG TABLET PO SCH (09:38)
[2017-12-25] MEDS: SODIUM CHLORIDE 1000 MG TABLET.SOL PO SCH ×2 (12:57→18:14)
[2017-12-25 16:00] VITALS: BP 100/52
--- NOTE | 2017-12-25 18:07 | NUR ---
RN MS NOTES CALLED PHARMACY REGARDING SODIUM CHLORIDE BAR CODE SCAN INEFFECTIVE, PER PHARM WILL BRING LABEL WILL WAIT FOR NOW.
--- NOTE | 2017-12-25 19:31 | NUR ---
MS RN CLOSING NOTES PATIENT IN BED, SLEEPING, EASILY AROUSABLE, RESPIRATIONS EVEN AND UNLABORED, ON 02 VIA NC EFFECTIVE SPO2 94-96%,NO COMPLAINTS OF PAIN OR DISCOMFORT NOTED. ON FLUID RESTRICTIONS 500ML IN 24 HR IV TO R FOREARM 22 GAUGE, INTACT, NO REDNESS, NO INFILTRATION NOTED, SAFETY MEASURES IN PLACE, CALL LIGHT KEPT WITHIN REACH, CALLED AND LEFT MESSAGE TO THIERRY MANAGER OF FINANCE [facility], SON AT BEDSIDE MADE AWARE. REPORT GIVEN TO NEXT SHIFT FOR CONTINUITY OF CARE.
[2017-12-25 20:00] VITALS: BP 93/46
--- NOTE | 2017-12-25 20:50 | NUR ---
MS RN NOTES RECEIVED ON BED A/ X2,O2 IN USED,O2 SAT 98%.SON AT BEDSIDE.PER REPORT,PATIENT IS GOING TO BE TRANSFERRED TO [facility] DUE TO INSURANCE ISSUE.SALINE LOCK IN PLACE RFA.BP ON THE LOW SIDE.REPORT GIVEN TO ERASMO DE ANDA.PATIENT GOING TO [facility].PAPER WORKS GIVEN TO AMBULANCE CREW.
--- NOTE | 2017-12-25 21:15 | NUR ---
MS RN NOTES CLERICAL RECEPTIONIST BY AMBULANCE FOR TRANSPORT IN STABLE CONDITION.
[2017-12-26] MEDS ORDERED: BOOST PLUS FOOD-VANILLA 237 ML BOX PO SCH (08:00)
== END 2017-12-25 21:40 | disposition short-term general hospital (02) | DRG 347 ==
LOC: ER 06:54 → MED 08:43
PROVIDERS: ADMIT Internal Medicine; ATTEND Internal Medicine
DX: M48.55XA Collapsed vertebra, not elsewhere classified, thoracolumbar region, initial encounter for fracture (principal); G93.41 Metabolic encephalopathy; I50.33 Acute on chronic diastolic (congestive) heart failure; E22.2 Syndrome of inappropriate secretion of antidiuretic hormone; I13.0 Hypertensive heart and chronic kidney disease with heart failure and stage 1 through stage 4 chronic kidney disease, or unspecified chronic kidney disease; E86.0 Dehydration; M85.80 Other specified disorders of bone density and structure, unspecified site; N18.9 Chronic kidney disease, unspecified; K21.9 Gastro-esophageal reflux disease without esophagitis; Z79.899 Other long term (current) drug therapy; Z90.49 Acquired absence of other specified parts of digestive tract; M85.88 Other specified disorders of bone density and structure, other site; K42.9 Umbilical hernia without obstruction or gangrene; E78.5 Hyperlipidemia, unspecified; F32.9 Major depressive disorder, single episode, unspecified; F03.90 Unspecified dementia, unspecified severity, without behavioral disturbance, psychotic disturbance, mood disturbance, and anxiety
CPT/HCPCS: 36415; 71045-TC; 72128-TC; 80048-TC; 80053-TC; 80061-TC; 80076-TC; 81000-TC; 83690-TC; 83735-TC; 83935-TC; 84100-TC; 84300-TC; 84484-TC; 85025-TC; 87081-TC; 92521; 92526; 94799-TC; A4606; J1940; J2270; J2405; J3475; J7030; J7040; Z7610

== ENCOUNTER 2018-01-06 03:22 | Inpatient (IN) | payer OTHER ==
[~2018-01-06] VITALS: Ht 162.6 cm; Wt 65.8 kg
--- NOTE | 2018-01-06 03:35 | NUR ---
TO BED 9 BIB PARAMEDICS C/O ABDOMINAL PAIN X3 DAYS, NO BM X8 DAYS PER PT DAUGHTER REPORT. PT AAOX3 NO ACUTE DISTRES SNOTED, RESP EVEN AND UNLABORED. PLACE PT ON CARDIAC MONITORING, CONTINUOUS POX, O2@2L/NC. ER MD AT BEDSIDE TO EVAL PT WITH ORDERS RECEIVED. WILL CARRY OUT ORDERS.
--- NOTE | 2018-01-06 03:40 | NUR ---
STARTED SL 18G TO RFA, BLOOD DRAWN AND SENT TO LAB.
[2018-01-06] MEDS ORDERED: IV NS 0.9% 1,000 ML BAG IV ONE (04:00)
[2018-01-06 04:07] LABS: BASOPHILS # (AUTO) 0.1 /CMM (0.0-0.2); EOSINOPHILS % (AUTO) 8.1 % (0.0-6.0); HEMATOCRIT 32 % (39-51); HEMOGLOBIN 10.6 g/dL (13.5-17.5); LYMPHOCYTES # (AUTO) 2.9 /CMM (0.8-4.8); LYMPHOCYTES % (AUTO) 24.6 % (20.0-44.0); MEAN CORPUSCULAR HGB CONC 33 g/dl (31.0-36.0); MEAN CORPUSCULAR VOLUME 94 fL (80-96); MONOCYTES % (AUTO) 8.4 % (2.0-12.0); NEUTROPHILS # (AUTO) 6.8 /CMM (1.8-8.9); NEUTROPHILS % (AUTO) 57.9 % (43.0-81.0); PLATELET COUNT (AUTO) 514 /CMM (150-450); RDW COEFFICIENT OF VARIATION 15.2 (11.5-15.0); RED BLOOD CELL COUNT(AUTO) 3.44 MIL/uL (4.5-6.0); WHITE BLOOD COUNT (AUTO) 11.8 K/uL (4.3-11.0)
[2018-01-06 04:25] LABS: TROPONIN I < 0.017 ng/mL (0.00-0.056)
[2018-01-06 04:32] LABS: ALANINE AMINOTRANSFERASE 29 U/L (12-78); ALBUMIN 2.7 g/dL (3.4-5.0); ALKALINE PHOSPHATASE 105 U/L (46-116); ASPARTATE AMINOTRANSFERASE 30 U/L (15-37); BILIRUBIN,DIRECT 0.2 mg/dL (0.0-0.2); BILIRUBIN,TOTAL 0.6 mg/dL (0.2-1.0); CARBON DIOXIDE 23 mmol/L (21-32); CHLORIDE 103 mmol/L (98-107); CREATININE 1.1 mg/dL (0.6-1.3); GLUCOSE 101 mg/dL (74-106); LIPASE 247 U/L (73-393); POTASSIUM 3.9 mmol/L (3.5-5.1); SODIUM SERUM 137 mmol/L (136-145); TOTAL PROTEIN, SERUM 6.4 g/dL (6.4-8.2); UREA NITROGEN, BLOOD 18 mg/dL (7-18)
[2018-01-06] MEDS ORDERED: FAMOTIDINE/PF INJ 20 MG/2 ML VIAL IV ONE ×2 (05:00→05:08)
[2018-01-06] MEDS ORDERED: CT SWABBABLE VALVE TRANS SET 1 EA INFUS.SET MC ONE (05:04)
[2018-01-06] MEDS ORDERED: IOHEXOL-300 100 ML VIAL IV ONE (05:04)
--- NOTE | 2018-01-06 05:05 | NUR ---
PT UNABLE TO PROVIDE URINE SAMPLE AT THIS TIME. BLADIMIR LINDQUIST MADE AWARE.
--- NOTE | 2018-01-06 05:13 | NUR ---
PT TO CT VIA STRETCHER, VSS.
--- NOTE | 2018-01-06 05:29 | NUR ---
PT BACK FROM CT.
--- NOTE | 2018-01-06 05:33 | NUR ---
URINE SPECIMEN OBTAINED AND SENT TO THE LAB.
--- NOTE | 2018-01-06 05:35 | NUR ---
EMT AT BEDSIDE FOR EKG. LAB CALLED FOR REPEAT TROPONIN.
[2018-01-06] MEDS ORDERED: FUROSEMIDE 40 MG/4 ML VIAL ONE (05:53)
--- NOTE | 2018-01-06 05:58 | NUR ---
TELE BED 327-1
[2018-01-06] MEDS ORDERED: IPRATROPIUM NEB FS 0.5 MG/2.5 ML AMPUL.NEB NEB ONE (06:00)
[2018-01-06] MEDS ORDERED: FUROSEMIDE 40 MG/4 ML VIAL IV ONE (06:00)
[2018-01-06] MEDS ORDERED: ALBUTEROL FS 2.5 MG/0.5 ML VIAL.NEB NEB ONE (06:00)
--- NOTE | 2018-01-06 06:02 | NUR ---
REPORT GIVEN TO ADILSON LEA FOR [facility] FOR ADMISSION.
[2018-01-06] MEDS ORDERED: IPRATROPIUM NEB FS 0.5 MG/2.5 ML AMPUL.NEB ONE (06:08)
[2018-01-06] MEDS ORDERED: ALBUTEROL FS 2.5 MG/3 ML VIAL.NEB ONE (06:08)
--- NOTE | 2018-01-06 06:12 | NUR ---
RT AT BEDSIDE FOR TARIK LOGAN
[2018-01-06] MEDS ORDERED: MAG HYDROX/AL HYDROX/SIMETH 30 ML UDC PO PRN (06:30)
[2018-01-06] MEDS ORDERED: ONDANSETRON HCL/PF 4 MG/2 ML VIAL IVP PRN (06:30)
[2018-01-06] MEDS ORDERED: MAGNESIUM HYDROXIDE 30 ML UDC PO PRN (06:30)
[2018-01-06] MEDS ORDERED: HYDROCODONE/APAP 5/325MG 1 EACH TABLET PO PRN (06:30)
[2018-01-06] MEDS ORDERED: MORPHINE SULFATE INJ 2 MG/ML DISP.SYRIN IV PRN (06:30)
[2018-01-06] MEDS ORDERED: Z GUARD REMEDY 2 OZ OINT TP PRN (06:30)
[2018-01-06] MEDS ORDERED: ZOLPIDEM TARTRATE 5 MG TABLET PO PRN (06:30)
--- NOTE | 2018-01-06 06:33 | NUR ---
PT TRANSPORTED TO [facility] 327-1 VIA STRETCHER OM WEBSITE/BLOG EDITOR WITH RN PER ACLS PROTOCOL. VSS.
[2018-01-06 06:58] LABS: APPEARANCE,URINE CLEAR (CLEAR); BILIRUBIN,URINE NEGATIVE (NEGATIVE); BLOOD, URINE NEGATIVE Ery/uL (NEGATIVE); COLOR,URINE YELLOW (YELLOW); KETONES,URINE NEGATIVE (NEGATIVE); LEUKOCYTE ESTERASE ,URINE NEGATIVE (NEGATIVE); NITRITE, URINE NEGATIVE (NEGATIVE); PROTEIN,URINE NEGATIVE (NEGATIVE); UGLUCOSE NEGATIVE (NEGATIVE); UROBILINOGEN,URINE 0.2 EU/dL (0.2)
--- NOTE | 2018-01-06 07:30 | NUR ---
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 SKIN CHECKED DONE, MID BACK OPEN WOUND WITH PACKING NOTED. OXYGEN AT 2L VIA NC, NO SOB. DENIES PAIN, SAFETY PRECAUTION MAINTAINED. WILL CONT TO MONITOR.
[2018-01-06 08:00] VITALS: BP 155/82
[2018-01-06] MEDS: CLOPIDOGREL BISULFATE 75 MG TABLET PO SCH (09:39)
[2018-01-06] MEDS: LISINOPRIL (10MG) 10 MG TABLET PO SCH (09:41)
[2018-01-06] MEDS: CARVEDILOL 12.5 MG TABLET PO SCH ×2 (09:42→17:40)
[2018-01-06] MEDS: ACETAMINOPHEN 325 MG TABLET PO PRN ×2 (13:04→19:38)
--- NOTE | 2018-01-06 13:28 | NUR ---
WOUND CARE CONSULT: PT PRESENTS WITH BACK WOUND, S/P I&D, PRESENT ON ADMISSION. RECOMMENDATIONS MADE FOR WOUND CARE AND SKIN PROTECTION. DISCUSSED WITH NURSING STAFF. RECOMMEND SURGICAL FOLLOWUP. WILL SEE PRN. LINDQUIST IN AGREEMENT WITH PLAN OF CARE. PT CONTINENT AT THIS TIME AND ABLE TO ASSIST WITH TURNING AND REPOSITIONING. PT REPORTS HAS GOUT AND REDNESS NOTED TO FEET WITH PEELING SKIN. Addendum: 01/06/18 at 1330 by ASHISH MORENO WNDNU Amended: Links added.
[2018-01-06 16:00] VITALS: BP 143/74
--- NOTE | 2018-01-06 16:45 | NUR ---
PATIENT IS NOT SEEN YET BY [facility] DOCTOR YET, INFORMED IVONNE FRAZIER/PRUDENCE. CHARGE NURSE IS AWARE.
[2018-01-06] MEDS: DAKINS QUARTER STRENGTH (0.125%) 480 ML BOTTLE TOP SCH (17:39)
--- NOTE | 2018-01-06 17:44 | NUR ---
[facility]ATA SOLN NON ADMINISTERED, SOLN NOT AVAILABLE AT 1430. WOUND DRESSING CHANGED BY DR. RODGERS AT 1430, WOUND DRESSED, CLEAN AND DRY.
--- NOTE | 2018-01-06 19:14 | NUR ---
DATA INTEGRATION ARCHITECT CLOSING NOTES DENIES PAIN, SINUS RHYTHM HR 78 ON THE TELE MONITOR. OXYGEN AT 2L VIA NC, NO SOB. MID BACK WOUND DRESSING IN PLACE, CLEAN AND DRY, NO BLEEDING NOTED. POST WOUND DEBRIDEMENT TODAY BY DR. VISHAL GATES WITH NEW ORDERS WOUND TREATMENT DAILY. SAFETY AND FALL PRECAUTION MAINTAINED, ENDORSED TO NIGHT RN.
--- NOTE | 2018-01-06 19:35 | NUR ---
SIGNALS INTELLIGENCE ANALYST OPENING NOTES RECEIVED PT IN BED ALERT, AWAKE, VERBALLY RESPONSIVE. ON O2 VIA N/C AT 3L/MIN, RESPIRATIONS EVEN, UNLABORED, NO APPARENT DISTRESS NOTED.SR 76. IV SITE RFA INTACT, PATENT. CALL LIGHT WITHIN REACH. BED LOCKED IN LOWEST POSITION. ATTENDED ALL NEEDS. WILL CONTINUE TO MONITOR ACCORDINGLY.
[2018-01-06 20:00] VITALS: BP 131/66
[2018-01-06] MEDS: ATORVASTATIN 10 MG TABLET PO SCH (21:13)
[2018-01-06 22:00] VITALS: BP 131/66
[2018-01-07] VITALS: BP 128/66
[2018-01-07 04:00] VITALS: BP_SYST 126; BP_DIAS 60; BP_DIAS 62
--- NOTE | 2018-01-07 06:53 | NUR ---
PROJECT CONSTRUCTION MANAGER CLOSING NOTES PT IN BED, RESTING COMFORTABLY, ON O2 VIA N/C AT 3L/MIN, RESPIRATION EVEN, UNLABORED, NO APPARENT DISTRESS NOTED. CALL LIGHT WITHIN REACH, KEPT CLEAN AND COMFORTABLE, ATTENDED ALL NEEDS. WILL ENDORSE TO DAY SHIFT FOR CONTINUITY OF CARE.
[2018-01-07 07:10] LABS: CALCIUM, SERUM 8.5 mg/dL (8.5-10.1); CARBON DIOXIDE 21 mmol/L (21-32); CHLORIDE 103 mmol/L (98-107); CREATININE 1.2 mg/dL (0.6-1.3); GLUCOSE 89 mg/dL (74-106); MAGNESIUM 1.3 mg/dL (1.8-2.4); PHOSPHORUS 4.6 mg/dL (2.5-4.9); POTASSIUM 3.9 mmol/L (3.5-5.1); SODIUM SERUM 136 mmol/L (136-145); UREA NITROGEN, BLOOD 19 mg/dL (7-18)
[2018-01-07 07:17] LABS: CHOLESTEROL 93 mg/dL (<200); HDL CHOLESTEROL 29 mg/dL (40-60); LDL 54 mg/dL (0-99); TRIGLYCERIDES 96 mg/dL (30-150)
[2018-01-07 07:26] LABS: BASOPHILS % (AUTO) 0.3 % (0.0-2.0); HEMATOCRIT 33 % (39-51); HEMOGLOBIN 10.8 g/dL (13.5-17.5); LYMPHOCYTES % (AUTO) 21.4 % (20.0-44.0); MEAN CORPUSCULAR HGB CONC 33 g/dl (31.0-36.0); MEAN CORPUSCULAR VOLUME 94 fL (80-96); MONOCYTES # (AUTO) 0.9 /CMM (0.1-1.30); MONOCYTES % (AUTO) 9.9 % (2.0-12.0); NEUTROPHILS # (AUTO) 5.7 /CMM (1.8-8.9); NEUTROPHILS % (AUTO) 60.4 % (43.0-81.0); PLATELET COUNT (AUTO) 476 /CMM (150-450); RDW COEFFICIENT OF VARIATION 14.9 (11.5-15.0); RED BLOOD CELL COUNT(AUTO) 3.46 MIL/uL (4.5-6.0); WHITE BLOOD COUNT (AUTO) 9.4 K/uL (4.3-11.0)
[2018-01-07 08:00] VITALS: BP 136/72
[2018-01-07 09:10] LABS: THYROID STIMULATING HORMONE 5.172 uIU/mL (0.358-3.74)
[2018-01-07] MEDS: PANTOPRAZOLE 40 MG TABLET.DR PO SCH (09:11)
[2018-01-07] MEDS: LISINOPRIL (10MG) 10 MG TABLET PO SCH (09:11)
[2018-01-07] MEDS: CLOPIDOGREL BISULFATE 75 MG TABLET PO SCH (09:11)
[2018-01-07] MEDS: CARVEDILOL 12.5 MG TABLET PO SCH ×2 (09:11→17:10)
--- NOTE | 2018-01-07 09:30 | NUR ---
MS RN NOTES AWAKE, A/O X3. OXYGEN AT 3L VIA NC, NO SOB. DENIES PAIN, REPORTED NO NAUSEA OR VOMITING. STARTED ON IVF NS AT 75ML/HR ORDERED. SAFETY PRECAUTION MAINTAINED.
[2018-01-07] MEDS: IV NS 0.9% 1,000 ML IV PRN (09:31)
[2018-01-07] MEDS: Magnesium 1GM/D5W 100ML PREMIX 100 ML IV SCH ×2 (09:36→10:55)
[2018-01-07] MEDS: DAKINS QUARTER STRENGTH (0.125%) 480 ML BOTTLE TOP SCH (11:44)
[2018-01-07] MEDS: ACETAMINOPHEN 325 MG TABLET PO PRN (11:44)
[2018-01-07] MEDS: ALBUTEROL FS 2.5 MG/0.5 ML VIAL.NEB NEB PRN ×2 (15:40→20:28)
[2018-01-07 15:47] VITALS: BP 127/71
[2018-01-07 16:00] VITALS: BP 127/71
--- NOTE | 2018-01-07 18:45 | NUR ---
MS RN CLOSING NOTES A/O X3, FORGETFUL, REORIENT EASILY. IVF NS INFUSING AT 75ML/HR, MAGNESIUM SUPPLEMENTED ORDERED. DRESSING CHANGED TO MID BACK WOUND TODAY, DENIES PAIN. AT 1730 NOTED WHEEZING, SAT 99% ON 2L, DENIES SOB, EPISODE OF NON PRODUCTIVE COUGH, AFEBRILE. NOTIFIED IVONNE FRAZIER/GARBAGE TRUCK HELPER, BREATHING TREATMENT GIVEN BY RT. NO BOWEL MOVEMENT TODAY, NO EPISODE OF DIARRHEA, EPISODE OF MID ABDOMINAL PAIN 2/10 WHEN MOVING, RECEIVED PHONE CALL FROM PRUDENCE KIM/GI AT 1700 ORDERED STOOL OB, CONSENT FOR EGD AND PLACE PATIENT NPO MIDNIGHT. SAFETY PRECAUTION MAINTAINED. WILL ENDORSE TO ONCOMING RN.
--- NOTE | 2018-01-07 19:10 | NUR ---
RN OPENING NOTES PT RESTING IN BED. SON AT BEDSIDE. NO APPARENT S/S OF PAIN AT THIS TIME. PT HAS LABORED BREATHING WILL CALL RT FOR PRN BREATHING TREATMENT. PT HAS LEFT FOREARM #22 RUNNING NS @75ML/HR. SAFETY PRECAUTIONS IN PLACE BED IN LOWEST LOCKED POSITION, X2 SIDERAILS UP, CALL LIGHT WITHIN REACH. WILL CONTINUE TO MONITOR.
[2018-01-07 20:00] VITALS: BP 105/48
[2018-01-07] MEDS: ATORVASTATIN 10 MG TABLET PO SCH (21:03)
--- NOTE | 2018-01-08 02:27 | NUR ---
RN NOTES PT REQUESTED PRN MEDICATION FOR ABD PAIN 05/02. WILL ADMINISTER FENTANYL 20MCG AND CONTINUE TO MONITOR. Addendum: 01/09/18 at 0633 by SANGEETA TSANG RN INCORRECT DATE AND TIME. 01/09/18 @0228
[2018-01-08] MEDS: IV NS 0.9% 1,000 ML IV PRN ×2 (05:15→23:43)
--- NOTE | 2018-01-08 06:31 | NUR ---
RN CLOSING NOTES PT RESTING IN BED. NO COMPLAINTS OF PAIN, DISCOMFORT OR DISTRESS AT THIS TIME. PT HAS LEFT FOREARM #22 RUNNING NS @75ML/HR. SAFETY PRECAUTIONS IN PLACE BED IN LOWEST LOCKED POSITION, X2 SIDE RAILS UP, CALL LIGHT WITHIN REACH. WILL ENDORSE TO DAY SHIFT NURSE FOR CONTINUITY OF CARE.
[2018-01-08] MEDS: PANTOPRAZOLE 40 MG TABLET.DR PO SCH (07:30)
--- NOTE | 2018-01-08 07:30 | NUR ---
RN MS NOTES PT IN BED, ASLEEP, RESPIRATIONS NORMAL AND NOT LABORED, EASY TO AROUSE, ALERT AND ORIENTED, IV FLUIDS INFUSING WELL, CALL LIGHT WITHIN REACH, PLAN OF CARE DISCUSSED WITH PT, VERBALIZED UNDERSTANDING, KEPT COMFORTABLE.
[2018-01-08 07:59] VITALS: BP 102/44
[2018-01-08] MEDS: CARVEDILOL 12.5 MG TABLET PO SCH ×2 (09:00→17:00)
[2018-01-08] MEDS: LISINOPRIL (10MG) 10 MG TABLET PO SCH (09:00)
[2018-01-08] MEDS: CLOPIDOGREL BISULFATE 75 MG TABLET PO SCH (09:00)
--- NOTE | 2018-01-08 09:49 | NUR ---
RN MS NOTES PT SEEN AND EXAMINED BY DR. OLVERA, PLAN OF CARE DISCUSSED WITH PT, VERBALIZED UNDERSTANDING.
[2018-01-08] MEDS: DAKINS QUARTER STRENGTH (0.125%) 480 ML BOTTLE TOP SCH (10:42)
--- NOTE | 2018-01-08 12:00 | NUR ---
RN MS NOTES PT IN BED, ASLEEP, EASY TO AROUSE, NOT IN DISTRESS, WITH COMPLAINT OF SLIGHT ABDOMINAL PAIN, NO DIARRHEA, NO COMPLAINT OF NAUSEA OR VOMITING NOTED, CALL LIGHT PLACED WITHIN REACH, KEPT NPO, SCHEDULED FOR EGD THIS AFTERNOON.
[2018-01-08] MEDS: SOD FERRIC GLUC 125 MG in IV NS 0.9% 100 ML IV SCH (15:24)
[2018-01-08] MEDS: ALBUTEROL FS 2.5 MG/0.5 ML VIAL.NEB NEB PRN ×2 (15:29→21:12)
[2018-01-08] MEDS: FENTANYL PF 100MCG/2ML AMPUL IV PRN (15:55)
[2018-01-08 16:00] VITALS: BP 140/79
--- NOTE | 2018-01-08 18:50 | NUR ---
RN MS NOTES PT IN BED, AWAKE, ALERT AND ORIENTED, NO COMPLAINT OF PAIN AT THIS TIME, NOT IN DISTRESS, IV FLUIDS INFUSING WELL, KEPT NPO, PICKED UP BY O.R. STAFF VIA BED FOR SCHEDULED EGD, VITAL SIGNS STABLE, LEFT IN STABLE CONDITION.
--- NOTE | 2018-01-08 19:30 | NUR ---
RN OPENING NOTES PT NOT IN ROOM PICKED UP BY OR PER DAY SHIFT FOR EGD. WILL CONTINUE TO MONITOR.
[2018-01-08] MEDS ORDERED: EPINEPHRINE (1:10,000) SYRINGE 1 MG/10 ML DISP.SYRIN ONE (19:39)
[2018-01-08 20:00] VITALS: BP 126/68
[2018-01-08] MEDS ORDERED: ANESTHESIA TRAY IN PYXIS 1 EA TRAY MC ONE (20:03)
--- NOTE | 2018-01-08 20:22 | NUR ---
RN NOTES PT ARRIVED ON TO THE UNIT POST EGD. PT AWAKE AND ALERT. NO COMPLAINTS OF PAIN, OR DISTRESS AT THIS TIME. PT HAS SOB WILL WILL CALL RT FOR PRN BREATHING TREATMENT. PT VITAL SIGNS ARE STABLE. WILL CONTINUE TO MONITOR PT. SAFETY PRECAUTIONS IN PLACE. BED IN LOW, LOCKED POSITION, X2 SIDE RAILS UP. CALL LIGHT WITHIN REACH.
[2018-01-08] MEDS: ATORVASTATIN 10 MG TABLET PO SCH (21:31)
[2018-01-09 01:09] LABS: OCCULT BLOOD STOOL NEGATIVE (NEGATIVE)
[2018-01-09] MEDS: FENTANYL PF 100MCG/2ML AMPUL IV PRN (02:27)
[2018-01-09] MEDS: ALBUTEROL FS 2.5 MG/0.5 ML VIAL.NEB NEB PRN ×2 (03:57→07:43)
[2018-01-09 06:43] LABS: BASOPHILS % (AUTO) 0.3 % (0.0-2.0); EOSINOPHILS % (AUTO) 7.4 % (0.0-6.0); HEMATOCRIT 31 % (39-51); HEMOGLOBIN 10.3 g/dL (13.5-17.5); LYMPHOCYTES # (AUTO) 2.4 /CMM (0.8-4.8); LYMPHOCYTES % (AUTO) 22.4 % (20.0-44.0); MEAN CORPUSCULAR HGB CONC 33 g/dl (31.0-36.0); MEAN CORPUSCULAR VOLUME 95 fL (80-96); MONOCYTES # (AUTO) 1.1 /CMM (0.1-1.30); NEUTROPHILS # (AUTO) 6.3 /CMM (1.8-8.9); NEUTROPHILS % (AUTO) 59.9 % (43.0-81.0); PLATELET COUNT (AUTO) 449 /CMM (150-450); RDW COEFFICIENT OF VARIATION 15.3 (11.5-15.0); RED BLOOD CELL COUNT(AUTO) 3.29 MIL/uL (4.5-6.0); WHITE BLOOD COUNT (AUTO) 10.5 K/uL (4.3-11.0)
--- NOTE | 2018-01-09 06:48 | NUR ---
RN CLOSING NOTES PT AWAKE AND ALERT. NAURUAN SPEAKER. PT RECEIVED PRN BREATHING TREATMENTS OVERNIGHT AND PAIN WAS MANAGED. PT IS S/P EGD. PT IS ON CLEAR LIQUID DIET. PT STOOL IS FORMED AND SENT TO LAB. SAFETY PRECAUTIONS IN PLACE. BED IN LOW, LOCKED POSITION, X2 SIDE RAILS UP. CALL LIGHT WITHIN REACH. WILL ENDORSE TO DAY SHIFT NURSE FOR CONTINUITY OF CARE.
[2018-01-09 06:58] LABS: ALANINE AMINOTRANSFERASE 23 U/L (12-78); ALBUMIN 2.7 g/dL (3.4-5.0); ALKALINE PHOSPHATASE 106 U/L (46-116); ASPARTATE AMINOTRANSFERASE 24 U/L (15-37); BILIRUBIN,TOTAL 0.8 mg/dL (0.2-1.0); CALCIUM, SERUM 8.5 mg/dL (8.5-10.1); CARBON DIOXIDE 21 mmol/L (21-32); CHLORIDE 106 mmol/L (98-107); CREATININE 1.2 mg/dL (0.6-1.3); GLUCOSE 89 mg/dL (74-106); MAGNESIUM 1.8 mg/dL (1.8-2.4); PHOSPHORUS 4.3 mg/dL (2.5-4.9); POTASSIUM 4.1 mmol/L (3.5-5.1); SODIUM SERUM 137 mmol/L (136-145); TOTAL PROTEIN, SERUM 6.9 g/dL (6.4-8.2); UREA NITROGEN, BLOOD 17 mg/dL (7-18)
--- NOTE | 2018-01-09 07:47 | NUR ---
MS RN OPENING NOTE PATIENT IS ALERT AND ORIENTED x3. PAL[place]AN SPEAKER. NO PAIN AT THIS TIME. NO SOB OR DISTRESS NOTED. ON 2L/MIN OF OXYGEN VIA NASAL CANNULA TOLERATING WELL. CALL LIGHT WITHIN REACH. SAFETY MEASURES IMPLEMENTED. ABLE TO COMMUNICATE NEEDS. IV INTACT AND PATENT NO REDNESS OR SWELLING NOTED. WOUND TREATMENT TO BE DONE THROUGHOUT SHIFT. LABS THIS MORNING, RESULTS PENDING. WILL CONTINUE TO MONITOR THROUGHOUT SHIFT
[2018-01-09 08:34] VITALS: BP 153/76
[2018-01-09] MEDS: CARVEDILOL 12.5 MG TABLET PO SCH ×2 (08:44→17:03)
[2018-01-09] MEDS: PANTOPRAZOLE 40 MG TABLET.DR PO SCH (08:44)
[2018-01-09] MEDS: CLOPIDOGREL BISULFATE 75 MG TABLET PO SCH (08:44)
[2018-01-09] MEDS: LISINOPRIL (10MG) 10 MG TABLET PO SCH (08:44)
[2018-01-09] MEDS: DAKINS QUARTER STRENGTH (0.125%) 480 ML BOTTLE TOP SCH (08:45)
[2018-01-09] MEDS: SOD FERRIC GLUC 125 MG in IV NS 0.9% 100 ML IV SCH (14:07)
[2018-01-09 16:10] VITALS: BP 135/78
--- NOTE | 2018-01-09 18:43 | NUR ---
MS RN CLOSING NOTE PATIENT RESTING COMFORTABLY AT THIS TIME. NO SOB OR DISTRESS NOTED. CALL LIGHT WITHIN REACH AT ALL TIMES. SAFETY MEASURES IMPLEMENTED. ABLE TO COMMUNICATE NEEDS. IV INTACT AND PATENT NO REDNESS OR SWELLING NOTED. ALL DUE MEDICATIONS GIVEN ORDERED. ALL NURSING CARE NEEDS ATTENDED TO NEEDED. ON 2L/MIN VIA NASAL CANNULA, TOLERATING WELL. PER CARDIO TO TITRATE OXYGEN UNTIL O2 SAT 92% ON ROOM AIR. WILL ENDORSE TO TRANSIT OPERATIONS SUPERVISOR NURSE FOR [facility] Addendum: 01/09/18 at 1900 by MATTHIAS HILL RN WOUND DRESSING CHANGED ON SHIFT
--- NOTE | 2018-01-09 19:25 | NUR ---
MS RN OPENING NOTES: RECEIVED PT IN BED AND IS ASLEEP AT THIS TIME. PT EASILY AROUSABLE TO TOUCH. SON AT BEDSIDE. PT ON 2LPM VIA NC. IV REMAINS INTACT. CALL LIGHT WITHIN PT'S REACH. BED KEPT IN LOW, LOCKED POSITION, AND SIDE RAILS X 2UP. WILL CONTINUE TO MONITOR PT.
[2018-01-09 20:00] VITALS: BP 123/66
[2018-01-09] MEDS: ATORVASTATIN 10 MG TABLET PO SCH (21:38)
[2018-01-10] MEDS: ACETAMINOPHEN 325 MG TABLET PO PRN (02:48)
--- NOTE | 2018-01-10 02:54 | NUR ---
MS RN NOTES: PT COMPLAINING OF ABDOMINAL PAIN. PT WAS ADMINISTERED TYLENOL 650MG PO. WILL CONTINUE TO MONITOR PT.
[2018-01-10] MEDS: ALBUTEROL FS 2.5 MG/0.5 ML VIAL.NEB NEB PRN (03:05)
[2018-01-10] MEDS: FENTANYL PF 100MCG/2ML AMPUL IV PRN (05:36)
[2018-01-10 05:39] VITALS: BP 149/74
--- NOTE | 2018-01-10 06:46 | NUR ---
MS RN CLOSING NOTES: ALL NEEDS WERE ATTENDED AND ANTICIPATED FOR. PT'S IV REMAINS INTACT. CURRENTLY S/L. CALL LIGHT WITHIN PT'S REACH. BED KEPT IN LOW, LOCKED POSITION, AND SIDE RAILS X 2UP. WILL ENDORSE TO AM NURSE FOR [facility].
--- NOTE | 2018-01-10 07:45 | NUR ---
MS RN OPENING NOTE PATIENT IS ALERT AND ORIENTED X3. NO PAIN AT THIS TIME. NO SOB OR DISTRESS NOTED. CALL LIGHT WITHIN REACH. SAFETY MEASURES IMPLEMENTED. ABLE TO COMMUNICATE NEEDS. IV INTACT AND PATENT NO REDNESS OR SWELLING NOTED. WOUND TREATMENT TO BE DONE. LABS PENDING AT THIS TIME. ON 2L/MIN OF OXYGEN TOLERATING WELL. WILL CONTINUE TO MONITOR THROUGHOUT SHIFT
[2018-01-10 08:00] VITALS: BP 148/81
[2018-01-10] MEDS: CLOPIDOGREL BISULFATE 75 MG TABLET PO SCH (08:07)
[2018-01-10] MEDS: PANTOPRAZOLE 40 MG TABLET.DR PO SCH (08:07)
[2018-01-10 08:08] VITALS: BP 148/81
[2018-01-10] MEDS: CARVEDILOL 12.5 MG TABLET PO SCH (08:08)
[2018-01-10] MEDS: LISINOPRIL (10MG) 10 MG TABLET PO SCH (08:08)
[2018-01-10] MEDS: DAKINS QUARTER STRENGTH (0.125%) 480 ML BOTTLE TOP SCH (08:09)
[2018-01-10] MEDS ORDERED: FUROSEMIDE 40 MG TABLET PO SCH (09:00)
[2018-01-10] MEDS ORDERED: PANT40TA2 PO (09:38)
[2018-01-10] MEDS ORDERED: FURO40TA5 PO (09:40)
--- NOTE | 2018-01-10 12:26 | NUR ---
GEM SETTER NOTE PATIENT SENT HOME IN STABLE CONDITION. ALL DUE MEDICATIONS GIVEN ORDERED. ALL NURSING CARE NEEDS ATTENDED TO NEEDED. ALL DISCHARGE INSTRUCTIONS GIVEN TO PATIENT AND DAUGHTER AT BEDSIDE, BOTH ABLE TO REPEAT BACK INSTRUCTION. PRESCRIPTION SENT TO PREFERRED PHARMACY, CALLED PHARMACY TO VERIFY PRESCRIPTION. IV REMOVED, SKIN INTACT. PATIENT DOES HAVE WOUND PICTURES BUT PATIENT REFUSED X3. ALL BELONGINGS WITH PATIENT UPON DISCHARGE AND ACCOUNTED FOR. LEFT VIA PRIVATE CAR
== END 2018-01-10 12:34 | disposition home or self-care (01) | DRG 951 ==
LOC: ER 03:25 → TELE 06:19 → MED 01-07 08:55
PROVIDERS: ADMIT Internal Medicine; ATTEND Hospitalist
PROC: 0KBF0ZZ Excision of Right Trunk Muscle, Open Approach (ICD-10-PCS; principal; 2018-01-06)
PROC: 0DB98ZX Excision of Duodenum, Via Natural or Artificial Opening Endoscopic, Diagnostic (ICD-10-PCS; 2018-01-08)
PROC: 0DB68ZX Excision of Stomach, Via Natural or Artificial Opening Endoscopic, Diagnostic (ICD-10-PCS; 2018-01-08)
PROC: 3E0G8GC Introduction of Other Therapeutic Substance into Upper GI, Via Natural or Artificial Opening Endoscopic (ICD-10-PCS; 2018-01-08)
DX: K26.4 Chronic or unspecified duodenal ulcer with hemorrhage (principal); N17.0 Acute kidney failure with tubular necrosis; I50.33 Acute on chronic diastolic (congestive) heart failure; E44.0 Moderate protein-calorie malnutrition; E22.2 Syndrome of inappropriate secretion of antidiuretic hormone; M48.54XA Collapsed vertebra, not elsewhere classified, thoracic region, initial encounter for fracture; E83.42 Hypomagnesemia; K57.92 Diverticulitis of intestine, part unspecified, without perforation or abscess without bleeding; K52.9 Noninfective gastroenteritis and colitis, unspecified; N28.1 Cyst of kidney, acquired; J44.9 Chronic obstructive pulmonary disease, unspecified; E86.0 Dehydration; S21.201A Unspecified open wound of right back wall of thorax without penetration into thoracic cavity, initial encounter; I11.0 Hypertensive heart disease with heart failure; K21.9 Gastro-esophageal reflux disease without esophagitis; X58.XXXA Exposure to other specified factors, initial encounter; Y92.009 Unspecified place in unspecified non-institutional (private) residence as the place of occurrence of the external cause; Z79.899 Other long term (current) drug therapy; M10.9 Gout, unspecified; E78.5 Hyperlipidemia, unspecified; F03.90 Unspecified dementia, unspecified severity, without behavioral disturbance, psychotic disturbance, mood disturbance, and anxiety; I25.10 Atherosclerotic heart disease of native coronary artery without angina pectoris; K59.00 Constipation, unspecified; I70.0 Atherosclerosis of aorta; D50.9 Iron deficiency anemia, unspecified; K29.70 Gastritis, unspecified, without bleeding
CPT/HCPCS: 36415; 71045-TC; 80048-TC; 80053-TC; 80061-TC; 80076-TC; 81000-TC; 82272-TC; 82306; 82728-TC; 83540-TC; 83605-TC; 83690-TC; 83735-TC; 84100-TC; 84439-TC; 84443-TC; 84484-TC; 85025-TC; 87081-TC; 88305-TC; 88313-TC; 88342; 93307-TC; 94799-TC; A4606; A6402; A6403; A6407; J0171; J1940; J2704; J2916; J3010; J3475; J3490; J7030; Q9967; Z7610